=== PATIENT | male | born 1955 | race Caucasian/White ===

== ENCOUNTER 2017-10-30 23:28 | Inpatient (IN) | payer MEDICARE, MEDICAID ==
[~2017-10-30] VITALS: Ht 182.9 cm; Wt 78.0 kg
[~2017-10-30 23:28] MED LIST: ASPIR 8181 MG PO; ASPIRIN325 PO; CARVEDILOL12.5 MG PO; CARVEDILOL25 MG PO; CILOSTAZOL 100100 M1 PO; COREG; CRESTOR40 MG PO; DEPAKOTE ER500 MG PO; DEPAKOTE500 MG; DEPAKOTE500 MG PO; DETROL LA4 MG PO; EFFEXOR XR; EFFEXOR XR150 MG; EFFEXOR XR150 MG PO; EFFEXOR XR75 MG PO; HYDROCODON-ACE1 EAC7 PO; IMDUR 60 MG TAB60 M1 PO; KAYEXALATE15 GM/601 PO; LISINOPRIL20 MG PO; NAPROSYN500 MG PO; NEURONTIN 300300 M1; NEURONTIN 300300 M1 PO; NIASPAN 500 MG500 M1; NITROGLYCERIN0.4 MG SUBLING; OLANZAPINE10 MG PO; OLANZAPINE5 MG PO; PARICALCITOL1 MCG PO; PLAVIX 75 MG TA75 MG PO; PRILOSEC 20 MG20 MG PO; PROTONIX40 M2; ULTRAM 50MG TAB50 MG PO; ZANTAC 150MG T150 M1 PO; ZEMPLAR2 MCG PO; ZYPREXA 10 MG T10 M1 PO; ZYPREXA 10 MG T10 MG PO; ZYPREXA5 MG PO; ZYPREXA7.5 MG; ZYPREXA7.5 MG PO
[2017-10-30 23:29] VITALS: BP 130/74
[2017-10-31] VITALS (26 sets, daily range): BP systolic 115–178; BP diastolic 65–106
[2017-10-31 00:06] LABS: ABSOLUTE EOSINOPHILS 0.6 thou/uL (0.0-0.7); ABSOLUTE LYMPHOCYTES 2.5 thou/uL (0.8-5.3); ABSOLUTE MONOCYTES 0.9 thou/uL (0.0-1.2); ABSOLUTE NEUTROPHILS 3.2 thou/uL (1.6-8.1); BASOPHILS 0.5 %; EOSINOPHILS 7.8 %; HEMATOCRIT 37.4 % (42.0-52.0); HEMOGLOBIN 12.4 gm/dL (14.0-18.0); LYMPHOCYTES 34.7 %; MCH 30.9 pg (26.0-34.0); MCHC 33.2 g/dL (28.0-37.0); MONOCYTES 12.8 %; MPV 7.2 fl. (7.2-11.1); NUCLEATED RBCS 0 /100WBC; PLATELET COUNT* 206 thou/uL (150-400); POLYS 44.2 %; RBC 4.02 mil/uL (4.50-6.00); RDW-CV 15.9 % (10.5-14.5); WBC 7.3 thou/uL (4.0-11.0)
[2017-10-31 00:10] LABS: ANION GAP 5 mmol/L (7-16); BUN 24 mg/dL (7-18); CALCIUM 8.5 mg/dL (8.5-10.1); CHLORIDE 103 mmol/L (98-107); CO2 32 mmol/L (21-32); CREATININE 1.5 mg/dL (0.6-1.3); GLUCOSE 91 mg/dL (70-99); SODIUM 140 mmol/L (136-145)
[2017-10-31 00:12] LABS: INR 1.1; PROTIME 10.7 Seconds (9.20-11.50)
[2017-10-31 00:21] LABS: ALKALINE PHOSPHATASE 56 U/L (46-116); NT-PRO BRAIN NAT PEPTIDE 228 pg/mL (<300); SGOT 14 U/L (15-37); SGPT 22 U/L (30-65); TOTAL BILIRUBIN 0.2 mg/dL (<0.1-1.0); TROPONIN-I LEVEL <0.06 ng/mL (<0.06)
[2017-10-31 04:55] LABS: HEMATOCRIT 39.6 % (42.0-52.0); HEMOGLOBIN 13.1 gm/dL (14.0-18.0); MCH 30.7 pg (26.0-34.0); MCHC 33.1 g/dL (28.0-37.0); MCV 92.8 fL (80.0-100.0); MPV 7.3 fl. (7.2-11.1); RBC 4.27 mil/uL (4.50-6.00); RDW-CV 15.9 % (10.5-14.5); WBC 7.7 thou/uL (4.0-11.0)
[2017-10-31 05:31] LABS: TROPONIN-I LEVEL <0.06 ng/mL (<0.06)
[2017-10-31 05:48] LABS: CHOLESTEROL 152 mg/dL (<200); HDL CHOLESTEROL 38 mg/dL (>40); LDL CHOLESTEROL 79 mg/dL (<100); TRIGLYCERIDE 178 mg/dL (<150); VLDL 36 mg/dL (<40)
[2017-10-31 05:52] LABS: SERUM ASSESSMENT Clear
--- NOTE | 2017-10-31 09:19 | CARD ---
[address] [address] CARDIAC CATH REPORT Name: JINNY BUTLER Monty Room: [address] IN .R.#: [id number] Admission: 10/31/17 Attend Phys: Thiago Hendrickson MD, F Discharge: Date of : 55 Report #: [id number] THIS REPORT FOR: //name// APPROVED REPORT Patient Details Patient Status: ED Room #: The patient is a 62 year-old male Event Personnel Thiago Hendrickson Swing Ride Operator, Gayle Mukherjee Monitor, Gayle Mukherjee Monitor, David Chau (R) Scrub Procedures Performed Art Access - R radial artery , Left Heart Catheterization, Selective Right and Left Coronary Angiography, PTCA with Stenting Indication Unstable angina Risk Factors Arterial HypertensionDysplipidemia , Peripheral Vascular Disease Previous Procedures/Diagnoses Previous PCI Admission/Lab Medications/Medications given during procedure Heparin Unfract. Procedure Narrative The patient was brought emergently to the Cardiac Catheterization Laboratory and was prepped and draped in a sterile manner. The right femoral was infiltrated with 1% Lidocaine subcutaneous anesthesia. A Slender Glidesheath sheath was inserted into the right radial artery. Coronary angiography was performed using coronary diagnostic catheters. The right coronary system was accessed and visualized with a Diagnostic JR 4 6FR catheter. The left coronary system was accessed and visualized with a Diagnostic JL 4 6FR catheter. Left ventricular/Aortic Valve gradient assessed via catheter pullback. The patient tolerated the procedure well and there were no complications associated with the procedure. There was no hematoma. Cath attempted from the right femoral artery. A 6 central african sheath was placed percutaneously, but a wire could not be advanced. Arteriogram [address] [address] CARDIAC CATH REPORT Name: BUTLERJINNY R Room: [address] IN [facility]#: [id number] Admission: 10/31/17 Attend Phys: Thiago Hendrickson MD, F Discharge: Date of : 55 Report #: [id number] revealed total occlusion of the right iliac artery. Sheath was sutured in place. Attempted from the left femoral artery. Arterial blood was obtained, but unable to place sheath over wire. Sheath removed and hemostasis achieved by direct pressure. Procedure perform from the right radial artery after placing a 6 central african sheath percutaneously. Intraoperative Conscious Sedation Sedation start time: 12:50 Case end Time: 01:49 Fentanyl 50 mcg Versed 2 mg At the end of the procedure, the sheath in the right femoral artery was sutured in place. Fluoro Time: 7.9 minutes Dose: DAP 92524 cGycm2 986.95 mGy Contrast Type and Amount: Visipaque 200 ml Coronary Angiography The patient's coronary anatomy is left dominant. [place] Artery Percent Stenosis Left Main: 0 % Prox LAD: 0 % Mid/Distal LAD: 0 % Circumflex: 0 % RCA: 99 % Ramus: 80 %Stent in the ostium of the ramus had a 80% long stenosis. Stent in mid circumflex had no significant restenosis. Small, nondominant RCA had a mid 99% stenosis. Left Ventriculography Left Ventriculography was not performed. Hemodynamics The aortic pressure is 129/71 mmHg with a mean of mmHg. The left ventricular end diastolic pressure is 20 mmHg. There was no gradient across the aortic valve upon pullback. Pullback from the left ventricle to the aorta revealed no gradient across the aortic valve. PCI Technique Lesion Anticoagulation was achieved with Heparin. patient had been on plavix and asa chronically Percutaneous coronary intervention was performed on the proximal ramus. The lesion stenosis prior to intervention was 80% with SHARAN 3 flow. A 6FR XB 3.5 100CM Guide Catheter was used to engage the LCA ostium. A IG: BMW 190cm Interventional Guidewire [place] [address] CARDIAC CATH REPORT Name: JINNY BUTLER Room: [address] IN [facility]#: [id number] Admission: 10/31/17 Attend Phys: Thiago Hendrickson MD, F Discharge: Date of : 55 Report #: [id number] BALLOON DILATION A Balloon catheter Trek RX 2.5 X 12 was inserted and inflated up to 10.00atm for 32seconds. Repeat angiography revealed the following post-dilatation results: 50% stenosis. STENT DEPLOYMENT A drug-eluting stent Resolute RX 2.5X22 was inserted and inflated up to 10.00atm for 32seconds. Repeat angiography revealed the following post-stent deployment results: 0% stenosis. Additional Inflation: 12.00atm for 12seconds. Final angiography reveals 0 % stenosis with SHARAN 3 flow. Conclusion 1. 80% restenosis of the stent in the ostium of the ramus branch 2. no restenosis of the stent in the circumflex artery 3. 99% stenosis of a small nondominant RCA 4. Successful repeat stenting of the ramus artery 5. PAD that included a chronic occlusion of the right common iliac artery Recommendations Smoking Cessation Cardiac Rehabilitation Referral Aggressive Medical Therapy <ELECTRONICALLY SIGNED> By: Thiago Hendrickson MD, FACC 10/31/17917 7 7Daamie Hendrickson MD, FACC /INF
--- NOTE | 2017-10-31 09:48 | H ---
[place] [address] HISTORY AND PHYSICAL Name: JINNY BUTLER Monty Room: [address] IN M.R.#: [id number] Admission: 10/31/17 Attend Phys: Thiago Hendrickson MD, F Discharge: Date of : 55 Report #: [id number] THIS REPORT FOR: //name// CC: Taylor Sheth . DATE OF SERVICE: 10/31/2017 PRIMARY CARE PHYSICIAN: Francesco Lew. HISTORY OF PRESENT ILLNESS: The patient is a 62-year-old single white male who was last seen in the hospital today after he complained of chest pain. The patient had coronary stents placed at [facility] in [place], [place] in 2005. The patient's last stent was a couple of years ago. He was doing well until this evening, he was at home, felt a pressure in his chest, felt short of breath. He took a nitroglycerin did seem to help. He called an ambulance. He was brought here to [facility]. he had persistent pain. I was asked to see him for further evaluation and treatment. He notes exertional dyspnea, but no palpitations, syncope. He has had no recent fever. He does have a chronic cough. PAST MEDICAL HISTORY: Significant for shoulder surgery, bilateral knee surgery, hypertension, hyperlipidemia, manic depressive illness. MEDICATIONS: Include aspirin, Plavix, carvedilol, Depakote, Neurontin, Imdur, Zyprexa, Prozac, Crestor, and Effexor. ALLERGIES: He has an INTOLERANCE TO SEROQUEL. FAMILY HISTORY: His father had coronary artery bypass surgery. SOCIAL HISTORY: Single, been twice, lives in [place], [place] not working at this time is on disability. Smokes 3 packs of cigarettes a day. No alcohol abuse. REVIEW OF SYSTEMS: He has had no history of stroke, peptic ulcer disease, liver disease, kidney disease. He does have chronic renal insufficiency. No chronic skin condition. PHYSICAL EXAMINATION: GENERAL: Revealed a middle-aged male, appeared in mild distress. VITAL SIGNS: Blood pressure 130/70, pulse is 70. HEENT: Mucous members moist. NECK: Veins do not appear distended. No carotid bruits. CHEST: [place] [address] HISTORY AND PHYSICAL Name: JINNY BUTLER Room: [address]#: [id number] Admission: 10/31/17 Attend Phys: Thiago Hendrickson MD, F Discharge: Date of : 55 Report #: [id number] CARDIOVASCULAR: Regular rate and rhythm. ABDOMEN: Soft. EXTREMITIES: Had no edema. Dorsalis pedis pulse cannot be palpated. SKIN: Cool and dry. DIAGNOSTIC DATA: His ECG tonight showed sinus rhythm with a minimal ST elevation in lead V3. LABORATORY DATA: Sodium was 140, BUN 24, creatinine 1.5, glucose 91. His liver function studies were normal. Troponin 0.06. His white blood cell count is 7.3, hemoglobin 12.4. IMPRESSION AND RECOMMENDATIONS: 1. Unstable angina. Recommend cardiac catheterization. 2. Chronic kidney disease. 3. Hypertension. The patient is on a beta willie. 4. Hyperlipidemia. The patient is on a statin drug. 5. Manic depressive illness. The patient is on multiple medications. 6. Tobacco abuse. 7. Chronic obstructive pulmonary disease. <ELECTRONICALLY SIGNED> By: Thiago Hendrickson MD, FACC 10/31/17 0948 0212 0229Thiago Hendrickson MD, FACC /nt
--- NOTE | 2017-10-31 10:07 | EKG ---
[place] [address] ELECTROCARDIOGRAM REPORT Name: JINNY BUTLER Room: [address] ADM IN .R.#: [id number] Admission: 10/31/17 Attend Phys: Thiago Hendrickson MD, F Discharge: Date of : 55 Report #: [id number] THIS REPORT FOR: //name// [facility] ED Test Date: 2017-10-30 Test Time: 23:31:16 Pat Name: JINNY BUTLER Department: Room: Gender: M Coordinator Of Rehabilitation Services: KANDI Cabrera : 1955 Requested By: ALEK Order Number: [id number] Warren MD: Thiago Hendrickson Measurements Intervals [place] Rate: 77 P: 77 TX: 174 QRS: 69 QRSD: 98 T: 68 QT: 402 QTc: 455 Interpretive Statements Sinus rhythm st elevation noted, consider anterior ischemia Left atrial enlargement RSR' in V1 or V2, probably normal variant Compared to ECG 01/14/2017 10:21:48 st elevation noted Electronically Signed On 10-31-2017 10:07:30 BULLET SLUG CASTING MACHINE OPERATOR by Thiago Hendrickson [email or web address] <ELECTRONICALLY SIGNED> By: Thiago Hendrickson MD, FACC 10/31/17 1007 [facility] Thiago Hendrickson MD, [facility] /EPI
--- NOTE | 2017-10-31 10:09 | EKG ---
[place] [address] ELECTROCARDIOGRAM REPORT Name: MARIFER BUTLERXIN Millan Room: [address] ADM IN M.R.#: [id number] Admission: 10/31/17 Attend Phys: Thiago Hendrickson MD, F Discharge: Date of : 55 Report #: [id number] THIS REPORT FOR: //name// [facility] Test Date: 2017-10-31 Test Time: 07:49:06 Pat Name: JINNY BUTLER Department: Room: [address] Gender: M [employer] Production Team Member: : 1955 Requested By: Thiago Hendrickson Order Number: [id number] Warren MD: Thiago Hendrickson Measurements Intervals [place] Rate: 80 P: 62 RI: 181 QRS: 47 QRSD: 94 T: 59 QT: 392 QTc: 453 Interpretive Statements Sinus rhythm Abnormal R-wave progression, early transition Electronically Signed On 10-31-2017 10:09:45 SPECIAL EDUCATION PARA PROFESSIONAL by Thiago Hendrickson [email or web address] <ELECTRONICALLY SIGNED> By: Thiago Hendrickson MD, [facility] 10/31/17 1009 0749 0749 Thiago Hendrickson MD, FACC /EPI
--- NOTE | 2017-10-31 10:10 | EKG ---
[place] [address] ELECTROCARDIOGRAM REPORT Name: MARIFER BUTLERXIN Millan Room: [address] ADM IN M.R.#: [id number] Admission: 10/31/17 Attend Phys: Thiago Hendrickson MD, F Discharge: Date of : 55 Report #: [id number] THIS REPORT FOR: //name// [facility] Test Date: 2017-10-31 Test Time: 02:46:56 Pat Name: JINNY BUTLER Department: Room: [address] Gender: M Tool And Die Maker Apprentice: SHILA STARR : 1955 Requested By: Thiago Hendrickson Order Number: [id number] Warren MD: Thiago Hendrickson Measurements Intervals [place] Rate: 79 P: 69 [place]: 198 QRS: 67 QRSD: 85 T: 70 QT: 401 QTc: 460 Interpretive Statements Sinus rhythm Abnormal R-wave progression, early transition Electronically Signed On 10-31-2017 10:10:51 GRID OPERATOR by Thiago Hendrickson [email or web address] <ELECTRONICALLY SIGNED> By: Thiago Hendrickson MD, [facility] 10/31/17 1010 0246 0246 Thiago Hendrickson MD, FACC /EPI
--- NOTE | 2017-10-31 11:46 | 2DMMODE ---
[place] [address] 2 D/M-MODE ECHOCARDIOGRAM Name: BUTLERJINNY R Room: [address] IN [facility]#: [id number] Admission: 10/31/17 Attend Phys: Thiago Hendrickson MD Discharge: Date of : 55 Date of Service: 10/31/17 1146 Report #: [id number] THIS REPORT FOR: //name// APPROVED REPORT Study performed: 10/31/2017 10:49:00 EXAM: Comprehensive 2D, Doppler, and color-flow Echocardiogram Patient Location: In-Patient Room #: [facility] BSA: 2.04 HR: 83 bpm BP: 178/106 mmHg Rhythm: NSR Other Information Study Quality: Fair Indications CAD 2D Dimensions IVSd: 13.02 (7-11mm) LVOT Diam: 20.13 (18-24mm) LVDd: 44.08 mm PWd: 11.42 (7-11mm) Ascending Ao: 32.27 (22-36mm) LVDs: 33.34 (25-40mm) Aortic Root: 31.10 mm Volumes Left Atrial Volume (Systole) LA ESV Index: 21.40 mL/m2 Aortic Valve AoV Peak Heraclio.: 0.91 m/s AO Peak Gr.: 3.30 mmHg LVOT Max P.18 mmHg AO Mean Gr.: 1.86 mmHg LVOT Mean P.37 mmHg LVOT Max V: 0.89 m/s AO V2 VTI: 17.93 cm LVOT Mean V: 0.53 m/s FARIBA (VTI): 2.94 cm2 LVOT V1 VTI: 16.56 cm Mitral Valve E/A Ratio: 0.68 MV Decel. Time: 211.34 ms MV E Max Heraclio.: 0.58 m/[place] [address] 2 D/M-MODE ECHOCARDIOGRAM Name: JINNY BUTLER Room: [address] IN ..#: [id number] Admission: 10/31/17 Attend Phys: Thiago Hendrickson MD Discharge: Date of : 55 Date of Service: 10/31/17 1146 Report #: [id number] MV PHT: 61.29 ms MVA (PHT): 3.59 cm2 TDI E/Lateral E': 4.83 E/Medial E': 6.44 Medial E' Heraclio.: 0.09 m/s Lateral E' Heraclio.: 0.12 m/s Pulmonary Valve PV Peak Heraclio.: 0.89 m/s PV Peak Gr.: 3.16 mmHg Left Ventricle The left ventricle is normal size. There is normal LV segmental wall motion. There is normal left ventricular wall thickness. Left ventricular systolic function is normal. The left ventricular ejection fraction is within the normal range. LVEF is 55-60%. Grade I - abnormal relaxation pattern. Right Ventricle The right ventricle is normal size. The right ventricular systolic function is normal. Atria The left atrium size is normal. The right atrium size is normal. Aortic Valve The aortic valve is normal in structure. No aortic regurgitation is present. There is no aortic valvular stenosis. Mitral Valve The mitral valve is normal in structure. Trace mitral regurgitation. No evidence of mitral valve stenosis. Tricuspid Valve The tricuspid valve is normal in structure. Unable to assess PA pressure. Trace tricuspid regurgitation. Pulmonic Valve Pulmonic valve is not well visualized. There is no pulmonic valvular regurgitation. Great Vessels The aortic root is normal in size. IVC is normal in size and collapses with >50% [place] [address] 2 D/M-MODE ECHOCARDIOGRAM Name: JINNY BUTLER Room: [address] IN [facility]#: [id number] Admission: 10/31/17 Attend Phys: Thiago Hendrickson MD Discharge: Date of : 55 Date of Service: 10/31/17 1146 Report #: [id number] Pericardium There is no pericardial effusion. <Conclusion> Left ventricular systolic function is normal. The left ventricular ejection fraction is within the normal range. <ELECTRONICALLY SIGNED> By: Thiago Hendrickson MD, [facility] 10/31/17 1146 1146 1146 Thiago Hendrickson MD, [facility] /INF
[2017-11-01 03:33] VITALS: BP 160/83
[2017-11-01 07:30] VITALS: BP 131/74
[2017-11-01 10:15] VITALS: BP 178/106
[2017-11-01 12:02] VITALS: BP 125/60
--- NOTE | 2017-11-01 13:34 | EKG ---
[place] [address] ELECTROCARDIOGRAM REPORT Name: JINNY BUTLER Room: [address] ADM IN .R.#: [id number] Admission: 10/31/17 Attend Phys: Thiago Hendrickson MD, F Discharge: Date of : 55 Report #: [id number] THIS REPORT FOR: //name// [facility] Test Date: 2017-11-01 Test Time: 08:27:34 Pat Name: JINNY BUTLER Department: Room: [facility] Gender: M Services Coordinator: : 1955 Requested By: Thiago Hendrickson Order Number: [id number] Warren MD: Thiago Hendrickson Measurements Intervals [place] Rate: 95 P: 75 MN: 161 QRS: 62 QRSD: 90 T: 67 QT: 352 QTc: 443 Interpretive Statements Sinus rhythm Abnormal R-wave progression, early transition Compared to ECG 10/31/2017 07:49:06 No significant changes Electronically Signed On 11-01-2017 13:34:13 HOSPICE REGISTERED NURSE by Thiago Hendrickson [email or web address] <ELECTRONICALLY SIGNED> By: Thiago Hendrickson MD, [facility] 11/01/17 1334 6 6 Thiago Hendrickson MD, [facility] /EPI
--- NOTE | 2017-11-02 07:53 | D ---
[address] [address] DISCHARGE SUMMARY Name: JINNY BUTLER Monty Room: [address] IN .R.#: [id number] Admission: 10/31/17 Attend Phys: Thiago Hendrickson MD, F Discharge: 11/01/17 Date of : 55 Report #: [id number] THIS REPORT FOR: //name// CC: Taylor Abreu DATE OF SERVICE: 11/01/2017 DISCHARGE DIAGNOSES: 1. Unstable angina. 2. Coronary artery disease. 3. Hypertension. 4. Hyperlipidemia. 5. Tobacco abuse. 6. Manic depressive illness. CONSULTANTS: None. PROCEDURES: Left heart catheterization with placement of a single drug-eluting stent in the ramus intermediate branch of the left coronary artery. HISTORY OF PRESENT ILLNESS: The patient is a 62-year-old single white male who came to the emergency room complaining of chest pain. The patient had previous stents placed in his circumflex and ramus intermediate branch at [facility] in 2005. He has actually had repeat heart catheterization at [facility] since that time showing no significant restenosis. He was doing well until the evening of admission, felt a pressure in his chest, became short of breath. He took a nitroglycerin that did not seem to help. He called an ambulance. He was brought to [place]. On arrival here, he had persisted pain. I was asked to see him on an emergent basis. He does complain of exertional dyspnea, but no palpitations, syncope, recent fever, or bleeding. He does have a chronic cough. PAST MEDICAL HISTORY: Significant for shoulder surgery, bilateral knee surgery, hypertension, hyperlipidemia, and has a history of manic depressive illness. MEDICATIONS: Consist of aspirin, Plavix, carvedilol, Depakote, Neurontin, Imdur, Zyprexa, Prozac, Crestor, and Effexor. ALLERGIES: He had a previous intolerance to SEROQUEL. SOCIAL HISTORY: He is single, lives in [place], [place], he is not working at this time because of disability. Smokes 3 packs of cigarettes a day. PHYSICAL EXAMINATION: [place] [address] DISCHARGE SUMMARY Name: JINNY BUTLER Room: [address]#: [id number] Admission: 10/31/17 Attend Phys: Thiaog Hendrickson MD, F Discharge: 11/01/17 Date of : 55 Report #: [id number] VITAL SIGNS: Blood pressure is 130/70, pulse is 70. CHEST: Clear to auscultation. HEART: Regular rate and rhythm. ABDOMEN: Soft and nontender. EXTREMITIES: Had no edema. SKIN: Warm and dry. ECG: Initial ECG showed a normal sinus rhythm with no significant ST segment change. However, followup ECG did show what appeared to be at least a mm of ST segment elevation in lead V3. LABORATORY DATA: Sodium 140, creatinine 1.5, glucose 91. Liver function studies were normal. Troponin 0.06. White blood cell count 7.3, hemoglobin 12.4. HOSPITAL COURSE: The patient was felt to be having acute coronary syndrome, although I do not believe it was a STEMI. I recommended urgent cardiac catheterization. He was taken to the laborer ammunition assembly at approximately 1:00 a.m. Results showed no significant stenosis in the LAD or left main artery. However, there was a large ramus intermediate branch that had a proximal stent. There appeared to be 80% concentric restenosis in the proximal portion of the stent in the ramus artery. The stent in the mid circumflex had no significant restenosis. There was a small nondominant right coronary artery that had a subtotal 99% stenosis. No ventriculogram was performed. Left ventricular end diastolic pressure was 20. There was no gradient across the aortic valve. He had been on aspirin and Plavix. I therefore anticoagulated the patient with heparin and I performed an angioplasty of the stent in the ramus branch. I then placed a new drug-eluting stent in the proximal ramus intermediate branch. I used a [employer] Resolute stent. He tolerated the procedure well. Initially, the procedure was attempted from the right femoral artery. However, I could not pass the wire. An arteriogram of the right femoral artery showed the right common iliac appeared to be chronically occluded. I then attempted it from the left femoral artery. Although pulse was felt and obtained arterial blood, I could not pass the wire through the iliac artery. This was then abandoned. The procedure was then performed from the right radial artery without complications. The patient had no further chest pain and was transferred to the ICU. A Vasc band was placed over the right radial artery. The sheath was removed from the right femoral artery and hemostasis achieved by prolonged pressure. The patient remained stable and developed no significant hematoma. He was transferred out of the ICU and began to ambulate. He has had no further chest pain, arrhythmias, or heart failure. Followup electrocardiogram showed a sinus rhythm with no significant ST or T-wave change. Additional workup during his hospitalization included a chest x-ray that showed normal heart size and clear lung newsome. A small granuloma was noted in the left lung. Additional lab work included a fasting blood glucose of 91. His troponin 0.06. Cholesterol 152, triglyceride 178, HDL 38, LDL 79. Followup [address] [place] [address] DISCHARGE SUMMARY Name: JINNY BUTLER Monty Room: [address] IN [facility]#: [id number] Admission: 10/31/17 Attend Phys: Thiago Hendrickson MD, F Discharge: 11/01/17 Date of : 55 Report #: [id number] hemoglobin was 13.1. Results of the hospitalization were discussed with the patient. He is felt to have had a restenosis of stent in the ramus branch. I then placed a new drug-eluting stent. There was no myocardial necrosis. He did undergo an echocardiogram to assess left ventricular function that showed a normal ejection fraction, no significant valvular heart disease. Prior to discharge, the patient was seen by cardiac rehabilitation. He was given a nicotine patch during his hospitalization because of his excessive smoking history. At time of discharge, he had no further complaints and had a blood pressure of 120/60, pulse was 80 and he was afebrile. He was discharged to continue his home medications that consisted of aspirin 81 mg a day, carvedilol 25 mg twice a day, Pletal 100 mg twice day because of his history of PAD. If the patient develops significant claudication, I would consider arteriogram of both legs to consider revascularization. He was to continue Plavix 75 mg a day indefinitely, Depakote at bedtime because of his manic depressive illness, Neurontin 300 mg 3 times a day, Imdur 60 mg a day, Zyprexa 15 mg at bedtime. The patient was planning to continue to see his psychiatrist for his manic depressive illness. He was to continue Prilosec 20 mg a day, ranitidine 150 mg at bedtime, Crestor 40 mg a day, Detrol-LA because of bladder spasms 4 mg at bedtime, Effexor XR 225 mg at bedtime. He does have nitroglycerin to take as needed for chest pain. At time of discharge, the patient had no further complaints. He was discharged to follow up with his regular industrial energy engineer, Dr. Avila at [facility] in 2 weeks. I recommended he continue to see his primary care physician, Dr. Plaza for routine medical care. He is scheduled to see his psychiatrist on a regular basis as well. The patient declined the invitation to participate in cardiac rehabilitation because he does not have a vehicle. The patient does not work at this time. I strongly recommended he attempts to stop smoking because of his vascular disease. <ELECTRONICALLY SIGNED> By: Thiago Hendrickson MD, [facility] 11/02/17 0753 1250 [id number] Hendrickson MD, FACC /nt
== END 2017-11-01 13:52 | disposition home or self-care (01) | DRG 246 ==
LOC: M.CL 23:28 → M.ERS 23:28 → M.CL 10-31 00:30 → M.ICU 10-31 02:21 → M.TBA-ER 10-31 02:21 → M.2W 10-31 02:21 → M.ICU 10-31 02:30 → M.2W 10-31 10:51
PROVIDERS: Emergency Medicine; ADMIT Internal Medicine Cardiovascular Disease
PROC: B2151ZZ Fluoroscopy of Left Heart using Low Osmolar Contrast (ICD-10-PCS; principal; 2017-10-31)
PROC: B2111ZZ Fluoroscopy of Multiple Coronary Arteries using Low Osmolar Contrast (ICD-10-PCS; principal; 2017-10-31)
PROC: 027034Z Dilation of Coronary Artery, One Artery with Drug-eluting Intraluminal Device, Percutaneous Approach (ICD-10-PCS; principal; 2017-10-31)
PROC: 4A023N7 Measurement of Cardiac Sampling and Pressure, Left Heart, Percutaneous Approach (ICD-10-PCS; principal; 2017-10-31)
DX: T82.855A Stenosis of coronary artery stent, initial encounter (principal); I50.31 Acute diastolic (congestive) heart failure; I25.110 Atherosclerotic heart disease of native coronary artery with unstable angina pectoris; I13.0 Hypertensive heart and chronic kidney disease with heart failure and stage 1 through stage 4 chronic kidney disease, or unspecified chronic kidney disease; N18.3 Chronic kidney disease, stage 3 (moderate); F31.9 Bipolar disorder, unspecified; E78.00 Pure hypercholesterolemia, unspecified; K21.9 Gastro-esophageal reflux disease without esophagitis; F17.210 Nicotine dependence, cigarettes, uncomplicated; Y84.0 Cardiac catheterization as the cause of abnormal reaction of the patient, or of later complication, without mention of misadventure at the time of the procedure; E78.5 Hyperlipidemia, unspecified; J44.9 Chronic obstructive pulmonary disease, unspecified; Z95.5 Presence of coronary angioplasty implant and graft; Z79.899 Other long term (current) drug therapy; Z79.82 Long term (current) use of aspirin; Z88.8 Allergy status to other drugs, medicaments and biological substances; Z82.49 Family history of ischemic heart disease and other diseases of the circulatory system; Y92.89 Other specified places as the place of occurrence of the external cause; Z79.02 Long term (current) use of antithrombotics/antiplatelets; Z71.6 Tobacco abuse counseling

== ENCOUNTER 2018-05-15 23:05 | Inpatient (IN) | payer MEDICARE, MEDICAID ==
[~2018-05-15] VITALS: Ht 182.9 cm; Wt 82.4 kg
[2018-05-15 23:06] VITALS: BP 105/57
[2018-05-15 23:29] LABS: ABSOLUTE EOSINOPHILS 0.4 thou/uL (0.0-0.7); ABSOLUTE LYMPHOCYTES 1.7 thou/uL (0.8-5.3); ABSOLUTE MONOCYTES 0.9 thou/uL (0.0-1.2); ABSOLUTE NEUTROPHILS 3.6 thou/uL (1.6-8.1); BASOPHILS 0.7 %; EOSINOPHILS 6.2 %; HEMATOCRIT 37.2 % (42.0-52.0); HEMOGLOBIN 12.7 gm/dL (14.0-18.0); LYMPHOCYTES 25.9 %; MCH 31.4 pg (26.0-34.0); MCHC 34.1 g/dL (28.0-37.0); MCV 92.2 fL (80.0-100.0); MONOCYTES 13.2 %; MPV 7.2 fl. (7.2-11.1); NUCLEATED RBCS 0 /100WBC; PLATELET COUNT* 266 thou/uL (150-400); RBC 4.03 mil/uL (4.50-6.00); RDW-CV 15.7 % (10.5-14.5); WBC 6.6 thou/uL (4.0-11.0)
[2018-05-15 23:43] LABS: INR 1.1; PROTIME 10.3 Seconds (9.20-11.50)
[2018-05-15 23:53] LABS: ANION GAP 7 mmol/L (7-16); BUN 42 mg/dL (7-18); CALCIUM 9.7 mg/dL (8.5-10.1); CHLORIDE 99 mmol/L (98-107); CO2 24 mmol/L (21-32); CREATININE 2.1 mg/dL (0.6-1.3); GLUCOSE 107 mg/dL (70-99); POTASSIUM 5.1 mmol/L (3.5-5.1); SODIUM 130 mmol/L (136-145)
[2018-05-15 23:58] LABS: ALKALINE PHOSPHATASE 62 U/L (46-116); NT-PRO BRAIN NAT PEPTIDE 155 pg/mL (<300); SGOT 15 U/L (15-37); SGPT 14 U/L (30-65); TOTAL BILIRUBIN 0.3 mg/dL (<0.1-1.0); TOTAL PROTEIN 6.3 g/dL (6.4-8.2); TROPONIN-I LEVEL <0.06 ng/mL (<0.06)
[2018-05-16] VITALS (11 sets, daily range): BP systolic 79–157; BP diastolic 40–86
[2018-05-16 00:14] LABS: URINE BILIRUBIN NEGATIVE (Negative); URINE BLOOD NEGATIVE (Negative); URINE CLARITY CLEAR; URINE COLOR YELLOW; URINE GLUCOSE-RANDOM NEGATIVE (Negative); URINE KETONES NEGATIVE (Negative); URINE LEUKOCYTES-REFLEX NEGATIVE (Negative); URINE NITRITE-REFLEX NEGATIVE (Negative); URINE PROTEIN TRACE (Negative); URINE SPECIFIC GRAVITY <= 1.005 (1.005-1.030); URINE UROBILINOGEN 0.2 E.U./dl (0.2-1.0)
--- NOTE | 2018-05-16 01:05 | NUR ---
REPORT GIVEN TO ICU
[2018-05-16 01:58] LABS: HEMOGLOBIN 13.7 gm/dL (14.0-18.0)
[2018-05-16 02:47] LABS: HEMATOCRIT 41.2 % (42.0-52.0)
--- NOTE | 2018-05-16 04:02 | NUR ---
PT. ADMITTED TO ROOM 3 AT 0141, ALERT AND ORIENTED, HARD OF HEARING MALE. 63 YEARS OLD. C/O CHEST PAIN THAT BROUGHT HIM TO ED, AND WAS NOTED TO HAVE BLOODY STOOLS IN ED. TRANSFERRED TO ICU BED STAND BY ASSIST. ROOM AIR, 4 PACK/DAY SMOKER, PT. STATED "PROBABLY MORE IF YOU COUNT MY PIPE." SEE ADMISSION ASSESSMENT. WILL CONTINUE TO MONITOR.
[2018-05-16 06:33] LABS: HEMOGLOBIN 12.9 gm/dL (14.0-18.0)
[2018-05-16 08:49] LABS: CALCIUM 9.7 mg/dL (8.5-10.1); CREATININE 1.5 mg/dL (0.6-1.3); POTASSIUM 4.9 mmol/L (3.5-5.1)
--- NOTE | 2018-05-16 10:45 | NUR ---
PT DISCHARGED AMA. DR CHUNG NOTIFIED. PT REMOVED HIS OWN MONITORS AND IV'S. PT EDUCATED ABOUT POSSIBLE RETURN OF SYMPTOMS AND TO RETYRN TO THE ER IF NEEDED. PT VERBALIZED UNDERSTANDING. PT CALLED [facility] [facility] [facility] FOR TRANSPORTATION.
--- NOTE | 2018-05-16 11:21 | NUR ---
PT LEFT AMA BEFORE COULD BE ASSESSED BY CASE MGT.
--- NOTE | 2018-05-16 13:06 | EKG ---
[place] [address] ELECTROCARDIOGRAM REPORT Name: BUTLERJINNY R Room: [address] IN M.R.#: [id number] Admission: 05/16/18 Attend Phys: Rick Payan MD Discharge: 05/16/18 Date of : 55 Report #: [id number] THIS REPORT FOR: //name// [facility] ED Test Date: 2018-05-15 Test Time: 23:09:24 Pat Name: JINNY BUTLER Department: Room: Gender: Helix Coil Winder: LORETTA Cabrera : 1955 Requested By: Cassy Dodson Order Number: [id number] MD: Keny Luciano Measurements Intervals [place] Rate: 78 P: 109 ND: 187 QRS: 112 QRSD: 96 T: 100 QT: 394 QTc: 449 Interpretive Statements Right and left arm electrode reversal, interpretation assumes no reversal Sinus rhythm Probable left atrial enlargement Right axis deviation Borderline repolarization abnormality Baseline wander in lead(s) I,II,III,aVR,aVF,V1,V2,V3,V4,V5,V6 Compared to ECG 11/01/2017 08:27:34 Right-axis deviation now present Electronically Signed On 05-16-2018 13:06:16 CDT by Keny Luciano [email or web address] <ELECTRONICALLY SIGNED> By: Keny Luciano MD, [facility] 05/16/18 1306 08 08 Keny Luciano MD, [facility] /EPI
--- NOTE | 2018-05-30 08:41 | CON ---
[address] [address] CONSULTATION Name: BUTLERJINNY R Room: [address] IN M.R.#: [id number] Admission: 05/16/18 Attend Phys: Rick Payan MD Discharge: 05/16/18 Date of : 55 Report #: [id number] THIS REPORT FOR: //name// CC: Rick Payan FAM physician/PCP DATE OF SERVICE: 05/16/2018 CONSULTING PHYSICIAN: Rick Payan MD REASON FOR NEPHROLOGY CONSULTATION: Acute kidney injury on chronic kidney disease stage 3. REASON FOR ADMISSION: Weakness and hypotension. HISTORY OF PRESENT ILLNESS: This is a 63-year-old male with past medical history of chronic kidney disease stage 3 with baseline creatinine 1.4-1.5, history of coronary artery disease, hypertension, non-STEMI who came in with dizziness and low blood pressure and some chest pain yesterday. He went out momentarily to leave his dogs out and he just felt very weak in his legs and dizzy and then got dizzy and then he also had some chest discomfort. Hence, he was evaluated in the Emergency Room and he was found to have a blood pressure of 70/44. Due to the history of chest discomfort a CTA was done to rule out aortic dissection, which came out to be negative. He was started on IV fluids and his blood pressure has since then improved and he has made about 1.2 liters of urine overnight. When he came in, his creatinine was 2.1, but now it has come down to 1.5 this morning. The patient is just very sleepy this morning. He wakes up and he answers all questions though. He has no difficulty urinating. He does not take any NSAIDs. He does follow with [facility]. ALLERGIES: QUETIAPINE. REVIEW OF SYSTEMS: Chest discomfort and dizziness, and just weakness, which has since then improved. Other review of systems were done and they were negative. PAST MEDICAL AND SURGICAL HISTORY: Includes history of bipolar disorder, hypertension, dyslipidemia, left rotator cuff repair, and then he has had 6 cardiac stents, which were placed in 2005, and he has had a vein removed from the left testicle and gotten cataract surgery. FAMILY HISTORY: Which is reviewed and it was noncontributory. SOCIAL HISTORY: He is a current every day smoker, does not use recreational drugs and does not use alcohol. He states that he lives at home with family. HOME MEDICATIONS: Include cilostazol, rosuvastatin, clopidogrel, isosorbide, [place] [address] CONSULTATION Name: JINNY BUTLER Room: [address] IN ..#: [id number] Admission: 05/16/18 Attend Phys: Rick Payan MD Discharge: 05/16/18 Date of : 55 Report #: [id number] ranitidine, gabapentin, omeprazole, venlafaxine, Detrol, carvedilol, , olanzapine, divalproex, aspirin and nitroglycerin. PHYSICAL EXAMINATION: VITAL SIGNS: Blood pressure is now 124/57, respiratory rate was 17, pulse was 74, temperature was 36.6 and pulse ox was 97% and he is on no oxygen. GENERAL: He is drowsy, but is arousable and oriented x 3. HEAD, EYES, EARS, NOSE AND THROAT: Mucous membranes are moist. NECK: No JVD. CHEST: Bilateral coarse breath sounds, but no crackles or wheezing. CARDIOVASCULAR: S1, S2 normal. No murmurs or rubs. ABDOMEN: Soft, nondistended, nontender. Bowel sounds are present. EXTREMITIES: No lower extremity edema, symmetrical extremities. NEUROLOGICAL FUNCTION: Gross neurological function is intact. PSYCHIATRIC: Mood seems to be normal. LABORATORY DATA: From this morning, hemoglobin was 12.9. Sodium was 132 from 130 yesterday, creatinine was 1.5 from 2.1 yesterday, and bicarbonate was 19. Other labs are reviewed. IMAGING: Chest, abdomen, pelvic CTA and chest x-ray were reviewed. ASSESSMENT AND PLAN: 1. Acute kidney injury on chronic kidney disease stage 3 with baseline creatinine 1.4-1.5, which is likely due to dehydration: The patient likely got dehydrated because with IV fluids his creatinine has come down to 1.5 this morning. He has a baseline creatinine of 1.4-1.5. We will try to get his records from our clinic. He is making urine. Continue normal saline at 100 mL an hour. He did get IV contrast yesterday, so we will have to follow his creatinine 48 hours after contrast. 2. Mild hyponatremia: Sodium is better this morning with IV fluids. Decrease IV fluids to normal saline at 100 mL an hour. Sodium is 132 this morning. 3. Hypotension: Etiology could be because of dehydration and it is better now after IV fluids. 4. Stool for occult blood positive: GI has been consulted for possible gastrointestinal bleed, although his hemoglobin has been rock stable. 5. Multiple small cysts in bilateral kidneys: This is something that can be followed up as an outpatient. 6. Chest pain: This could have been because of low blood pressure and troponins so far have been negative. Thank you for this consultation. We will continue to follow along with you. <ELECTRONICALLY SIGNED> By: Tanesha Sutton MD 05/30/18 0841 1042 1451Amitolga lidia Sutton MD /nt
== END 2018-05-16 10:50 | disposition left against medical advice (07) | DRG 394 ==
LOC: M.ERS 23:05 → M.ICU 05-16 01:23 → M.TBA-ER 05-16 01:23 → M.ICU 05-16 01:31
PROVIDERS: Emergency Medicine; Internal Medicine; ADMIT Internal Medicine
DX: K64.8 Other hemorrhoids (principal); N17.9 Acute kidney failure, unspecified; E87.1 Hypo-osmolality and hyponatremia; I95.9 Hypotension, unspecified; F31.9 Bipolar disorder, unspecified; E78.00 Pure hypercholesterolemia, unspecified; K21.9 Gastro-esophageal reflux disease without esophagitis; E78.5 Hyperlipidemia, unspecified; F17.210 Nicotine dependence, cigarettes, uncomplicated; N18.3 Chronic kidney disease, stage 3 (moderate); Z53.21 Procedure and treatment not carried out due to patient leaving prior to being seen by health care provider; I12.9 Hypertensive chronic kidney disease with stage 1 through stage 4 chronic kidney disease, or unspecified chronic kidney disease; I25.10 Atherosclerotic heart disease of native coronary artery without angina pectoris; I73.9 Peripheral vascular disease, unspecified; E86.0 Dehydration; Z98.49 Cataract extraction status, unspecified eye; Z95.5 Presence of coronary angioplasty implant and graft; Z88.8 Allergy status to other drugs, medicaments and biological substances

== ENCOUNTER 2018-05-29 21:26 | Inpatient (IN) | payer MEDICARE, MEDICAID ==
[~2018-05-29] VITALS: Ht 182.9 cm; Wt 80.0 kg
[2018-05-29 21:27] VITALS: BP 97/61
[2018-05-29 21:54] LABS: ABSOLUTE EOSINOPHILS 0.3 thou/uL (0.0-0.7); ABSOLUTE LYMPHOCYTES 2.3 thou/uL (0.8-5.3); ABSOLUTE MONOCYTES 0.9 thou/uL (0.0-1.2); ABSOLUTE NEUTROPHILS 3.6 thou/uL (1.6-8.1); BASOPHILS 0.5 %; EOSINOPHILS 4.9 %; HEMATOCRIT 36.9 % (42.0-52.0); HEMOGLOBIN 12.4 gm/dL (14.0-18.0); LYMPHOCYTES 31.5 %; MCH 31.5 pg (26.0-34.0); MCHC 33.6 g/dL (28.0-37.0); MCV 93.7 fL (80.0-100.0); MONOCYTES 12.4 %; MPV 7.2 fl. (7.2-11.1); NUCLEATED RBCS 0 /100WBC; PLATELET COUNT* 210 thou/uL (150-400); POLYS 50.7 %; RBC 3.94 mil/uL (4.50-6.00); RDW-CV 15.7 % (10.5-14.5); WBC 7.2 thou/uL (4.0-11.0)
[2018-05-29 22:02] LABS: ANION GAP 12 mmol/L (7-16); BUN 45 mg/dL (7-18); CALCIUM 8.6 mg/dL (8.5-10.1); CHLORIDE 105 mmol/L (98-107); CO2 21 mmol/L (21-32); CREATININE 2.3 mg/dL (0.6-1.3); GLUCOSE 78 mg/dL (70-99); POTASSIUM 4.3 mmol/L (3.5-5.1); SODIUM 138 mmol/L (136-145)
[2018-05-29 22:07] LABS: INR 1.1; PROTIME 10.4 Seconds (9.20-11.50)
[2018-05-29 22:13] LABS: ALBUMIN 3.1 g/dL (3.4-5.0); ALKALINE PHOSPHATASE 57 U/L (46-116); NT-PRO BRAIN NAT PEPTIDE 72 pg/mL (<300); SGOT 14 U/L (15-37); SGPT 15 U/L (30-65); TOTAL BILIRUBIN 0.3 mg/dL (<0.1-1.0); TOTAL PROTEIN 6.4 g/dL (6.4-8.2); TROPONIN-I LEVEL <0.06 ng/mL (<0.06)
[2018-05-30] VITALS (7 sets, daily range): BP systolic 125–143; BP diastolic 68–82
[2018-05-30 04:09] LABS: URINE COLOR YELOW
[2018-05-30 04:10] LABS: URINE BILIRUBIN NEGATIVE (Negative); URINE BLOOD NEGATIVE (Negative); URINE CLARITY CLEAR; URINE GLUCOSE-RANDOM NEGATIVE (Negative); URINE KETONES NEGATIVE (Negative); URINE LEUKOCYTES-REFLEX NEGATIVE (Negative); URINE NITRITE-REFLEX NEGATIVE (Negative); URINE PROTEIN NEGATIVE (Negative); URINE SPECIFIC GRAVITY < 1.005 (1.005-1.030); URINE UROBILINOGEN 0.2 E.U./dl (0.2-1.0)
--- NOTE | 2018-05-30 04:47 | NUR ---
PT ADMITTED FROM ER TO ROOM 203. PT MOVED TO [facility] BED PER STAFF. RESP REG AND UNALBORED SKIN W/D. PT UNABLE TO STAY AWAKE T ANSWER QUESTIONS AT FIRST. TELEMETRY PACK APPLIED WITH ALARMS SET. PT WILL ANSWE RA QUESTION AND BE ASLEEP BEFORE BEING ABLE TO ASK NEXT QUESTION. VSS ANDNO ACUTE DISTRESS NOTED. WILL CONTINUE TO MONITOR. PT ORIENTED TO ROOM, CALL SYSTEM, BED CONTROLS AND TV CONTROLS. PT VERBALIZED GOOD UNDERSTANDING. O2 2 L BNC INTACT
[2018-05-30 09:53] LABS: CALCIUM 9.3 mg/dL (8.5-10.1); CREATININE 1.6 mg/dL (0.6-1.3); POTASSIUM 4.4 mmol/L (3.5-5.1)
--- NOTE | 2018-05-30 15:03 | 2DMMODE ---
[place] [address] 2 D/M-MODE ECHOCARDIOGRAM Name: JINNY BUTLER Room: [address] IN [facility]#: [id number] Admission: 05/29/18 Attend Phys: Marcelino Bunch, Discharge: Date of : 55 Date of Service: 05/30/18 1502 Report #: [id number] THIS REPORT FOR: //name// APPROVED REPORT Study performed: 05/30/2018 10:15:57 EXAM: Comprehensive 2D, Doppler, and color-flow Echocardiogram Patient Location: In-Patient [facility] Status: routine BSA: 2.04 HR: 77 bpm BP: 143/77 mmHg Rhythm: NSR Other Information Study Quality: Good Indications Arrhythmia Syncope 2D Dimensions LVEF(%): 58.71 (>50%) IVSd: 9.83 (7-11mm) LVOT Diam: 19.99 (18-24mm) LVDd: 43.48 mm PWd: 10.25 (7-11mm) Ascending Ao: 33.21 (22-36mm) LVDs: 30.07 (25-40mm) Aortic Root: 31.81 mm Gomez's LVEF: 58.71 % Volumes Left Atrial Volume (Systole) LA ESV Index: 15.80 mL/m2 Aortic Valve AoV Peak Heraclio.: 1.11 m/s AO Peak Gr.: 4.89 mmHg LVOT Max P.68 mmHg AO Mean Gr.: 2.49 mmHg LVOT Mean P.14 mmHg LVOT Max V: 0.82 m/s AO V2 VTI: 23.72 cm LVOT Mean V: 0.48 m/s FARIBA (VTI): 2.26 cm2 LVOT V1 VTI: 17.11 [place] [address] 2 D/M-MODE ECHOCARDIOGRAM Name: JINNY BUTLER Room: [address] IN .R.#: [id number] Admission: 05/29/18 Attend Phys: Marcelino Bunch, Discharge: Date of : 55 Date of Service: 05/30/18 1502 Report #: [id number] E/A Ratio: 0.77 MV Decel. Time: 248.63 ms MV E Max Heraclio.: 0.64 m/s MV PHT: 72.10 ms MVA (PHT): 3.05 cm2 TDI E/Lateral E': 6.40 E/Medial E': 5.82 Medial E' Heraclio.: 0.11 m/s Lateral E' Heraclio.: 0.10 m/s Pulmonary Valve PV Peak Heraclio.: 0.82 m/s PV Peak Gr.: 2.68 mmHg Left Ventricle The left ventricle is normal size. There is normal LV segmental wall motion. There is normal left ventricular wall thickness. Left ventricular systolic function is normal. The left ventricular ejection fraction is within the normal range. LVEF is 55-60%. Grade I - abnormal relaxation pattern. Right Ventricle The right ventricle is normal size. The right ventricular systolic function is normal. Atria The left atrium size is normal. The right atrium size is normal. Aortic Valve The aortic valve is normal in structure. No aortic regurgitation is present. There is no aortic valvular stenosis. Mitral Valve The mitral valve is normal in structure. Trace mitral regurgitation. No evidence of mitral valve stenosis. Tricuspid Valve The tricuspid valve is normal in structure. Trace tricuspid regurgitation. Unable to assess PA pressure. Pulmonic Valve The pulmonary valve is normal in structure. There is no pulmonic valvular regurgitation[place] [address] 2 D/M-MODE ECHOCARDIOGRAM Name: JINNY BUTLER Monty Room: [address] IN [facility]#: [id number] Admission: 05/29/18 Attend Phys: Marcelino Bunch, Discharge: Date of : 55 Date of Service: 05/30/18 1502 Report #: [id number] The aortic root is normal in size. IVC is normal in size and collapses with >50% inspiration Pericardium There is no pericardial effusion. <Conclusion> The left ventricle is normal size. There is normal left ventricular wall thickness. Left ventricular systolic function is normal. The left ventricular ejection fraction is within the normal range. Grade I - abnormal relaxation pattern. The right ventricle is normal size. The left atrium size is normal. The aortic valve is normal in structure. The mitral valve is normal in structure. Trace mitral regurgitation. The tricuspid valve is normal in structure. IVC is normal in size and collapses with >50% inspiration There is no pericardial effusion. There is normal LV segmental wall motion. LVEF is 55-60%. <ELECTRONICALLY SIGNED> By: Keny Luciano MD, FACC 05/30/18 1502 1502 150 Keny Luciano MD, FACC /INF
--- NOTE | 2018-05-30 15:19 | EKG ---
[place] [address] ELECTROCARDIOGRAM REPORT Name: JINNY BUTLER Room: [address] IN .R.#: [id number] Admission: 05/29/18 Attend Phys: Marcelino Bunch MD Discharge: Date of : 55 Report #: [id number] THIS REPORT FOR: //name// [facility] ED Test Date: 2018-05-29 Test Time: 21:35:08 Pat Name: JINNY BUTLER Department: Room: Gender: Career Services Director: [place] : 1955 Requested By: Evans Colbert Order Number: [id number] MD: Keny Luciano Measurements Intervals [place] Rate: 77 P: 68 [place]: 188 QRS: 39 QRSD: 101 T: 79 QT: 401 QTc: 454 Interpretive Statements Sinus rhythm Consider left atrial enlargement RSR' in V1 or V2, probably normal variant Compared to ECG 05/15/2018 23:09:24 RSR' in V1 or V2 now present Right-axis deviation no longer present Electronically Signed On 05-30-2018 15:19:46 CDT by Keny Luciano [email or web address] <ELECTRONICALLY SIGNED> By: Keny Luciano MD, [facility] 05/30/18 1519 2135 2135 Keny Luciano MD, [facility] /EPI
--- NOTE | 2018-05-30 15:30 | NUR ---
Pt was sound asleep when CM went to assess, will f/u later
--- NOTE | 2018-05-30 17:13 | NUR ---
ASSESSMENT COMPLETED REFER TO COMPUTER CHARTING. SEED TECHNICIAN TRACKING SR. PATIENT REPORTING NO PAIN, NAUSEA OR SHORTNESS OF BREATH. BED IN LOW AND LOCKED POSITION. CALL LIGHT WITHIN REACH. IV FLUIDS DISCONTINUED. PATIENT ON ROOM AIR. PATIENT DROWSEY THIS SHIFT.
[2018-05-31] VITALS: BP 139/69
[2018-05-31 04:00] VITALS: BP 123/69
--- NOTE | 2018-05-31 04:16 | NUR ---
PT AAOX4, PT MORE AWAKE THIS SHIFT THAN WHEN ADMITTED. PT STATED HE WAS JUST CATCHING UP ON HIS SLEEP, STATES NOT USUALLY THIS SLEEPY. TELEMETRY PACK INTACT WITH ALARMS SET. PT HAD A GOOD NIGHT WITH NO ACUTE CHANGES NOTED., VSS WILL CONTINUE TO MONITOR
[2018-05-31 04:21] LABS: HEMATOCRIT 38.3 % (42.0-52.0); HEMOGLOBIN 12.8 gm/dL (14.0-18.0); MCH 31.1 pg (26.0-34.0); MCHC 33.3 g/dL (28.0-37.0); MCV 93.6 fL (80.0-100.0); MPV 7.6 fl. (7.2-11.1); RBC 4.1 mil/uL (4.50-6.00); RDW-CV 15.8 % (10.5-14.5); WBC 6.2 thou/uL (4.0-11.0)
[2018-05-31 04:33] LABS: CREATININE 1.1 mg/dL (0.6-1.3); MAGNESIUM 1.5 mg/dL (1.8-2.4); POTASSIUM 4.2 mmol/L (3.5-5.1)
[2018-05-31 08:00] VITALS: BP 152/79
--- NOTE | 2018-05-31 09:48 | NUR ---
VSS, ASSUMED CARE OF PT THIS AM, ASSESSMENT PERFORMED AND CHARTED, AND CALL LIGHT IN REACH, FALL PRECAUTIONS IN PLACE, PT IS A&O4 AND ON RA TRACING SR ON THE MONITOR AND DENIES ANY PAIN, PT GOAL IS TO D/C ON DAY OF CARE. AT THIS TIME CARDI HAS SINGED OFF AND AND I HAVE RECIEVED D/C ORDERS, I FILLED OUT D/C PAPERS AND PROVITED D/C EDUCATION TO PT, I TOOK OUT IV AND TELE MONITOR AND GATHERED AND PLACED BELONGINGS WITH PT. HOURLY ROUNDS COMPLETED.
[2018-05-31 10:47] VITALS: BP 152/79
--- NOTE | 2018-05-31 11:22 | NUR ---
Pt discharging to home today, cab voucher provided.
--- NOTE | 2018-05-31 11:54 | NUR ---
VSS, PT WAS WALKED OUT BY STAFF TO CAB,
== END 2018-05-31 11:56 | disposition home or self-care (01) | DRG 377 ==
LOC: M.ERS 21:26 → M.TBA-ER 23:39 → M.2W 23:39
PROVIDERS: Family Medicine; ADMIT Internal Medicine
DX: K92.2 Gastrointestinal hemorrhage, unspecified (principal); N17.0 Acute kidney failure with tubular necrosis; J98.11 Atelectasis; I95.2 Hypotension due to drugs; R55 Syncope and collapse; E78.00 Pure hypercholesterolemia, unspecified; F31.9 Bipolar disorder, unspecified; I12.9 Hypertensive chronic kidney disease with stage 1 through stage 4 chronic kidney disease, or unspecified chronic kidney disease; N18.3 Chronic kidney disease, stage 3 (moderate); I25.10 Atherosclerotic heart disease of native coronary artery without angina pectoris; I73.9 Peripheral vascular disease, unspecified; F17.210 Nicotine dependence, cigarettes, uncomplicated; T50.905A Adverse effect of unspecified drugs, medicaments and biological substances, initial encounter; N40.0 Benign prostatic hyperplasia without lower urinary tract symptoms; K21.9 Gastro-esophageal reflux disease without esophagitis; Z96.1 Presence of intraocular lens; Z79.82 Long term (current) use of aspirin; Z79.899 Other long term (current) drug therapy; Z88.8 Allergy status to other drugs, medicaments and biological substances; Z95.5 Presence of coronary angioplasty implant and graft; Z98.42 Cataract extraction status, left eye; Z98.41 Cataract extraction status, right eye; Y92.89 Other specified places as the place of occurrence of the external cause

== ENCOUNTER 2019-01-13 16:13 | Emergency (ER) | payer MEDICARE, OTHER, MEDICAID ==
[~2019-01-13] VITALS: Ht 182.9 cm; Wt 81.8 kg
[2019-01-13 17:38] VITALS: BP 129/61
== END 2019-01-13 17:38 | disposition home or self-care (01) ==
LOC: M.ERS 16:13
DX: Z71.1 Person with feared health complaint in whom no diagnosis is made (principal); I10 Essential (primary) hypertension; F31.9 Bipolar disorder, unspecified; E78.00 Pure hypercholesterolemia, unspecified; K21.9 Gastro-esophageal reflux disease without esophagitis; N40.0 Benign prostatic hyperplasia without lower urinary tract symptoms; I25.10 Atherosclerotic heart disease of native coronary artery without angina pectoris; F17.210 Nicotine dependence, cigarettes, uncomplicated; Z88.8 Allergy status to other drugs, medicaments and biological substances

== ENCOUNTER 2019-05-21 14:41 | Inpatient (IN) | payer MEDICARE, OTHER, MEDICAID ==
[~2019-05-21] VITALS: Ht 182.9 cm; Wt 85.6 kg
[2019-05-21 14:46] VITALS: BP 111/52
[2019-05-21] MEDS ORDERED: RANEXA500 MG PO (14:53)
[2019-05-21] MEDS ORDERED: EFFEXOR XR75 MG PO ×2 (14:53→14:54)
[2019-05-21] MEDS ORDERED: OMEPRAZOLE40 MG PO (14:54)
[2019-05-21] MEDS ORDERED: FISH OIL 1,001000 M2 PO (14:54)
[2019-05-21] MEDS ORDERED: DEPAKOTE500 MG PO (14:55)
[2019-05-21] MEDS ORDERED: CRESTOR40 MG PO (14:56)
[2019-05-21] MEDS ORDERED: IMDUR 60 MG TAB60 M1 PO (14:56)
[2019-05-21] MEDS ORDERED: TOLTERODINE TART4 MG PO (14:56)
[2019-05-21] MEDS ORDERED: PLAVIX 75 MG TA75 M1 PO (14:57)
[2019-05-21] MEDS ORDERED: ZANTAC 150MG T150 MG PO (14:57)
[2019-05-21] MEDS ORDERED: CILOSTAZOL 100100 M1 PO (14:58)
[2019-05-21] MEDS ORDERED: LISINOPRIL10 MG PO (14:58)
[2019-05-21] MEDS ORDERED: OLANZAPINE15 MG PO (14:58)
[2019-05-21] MEDS ORDERED: CENTRUM SILVER1 EAC2 PO (15:01)
[2019-05-21] MEDS ORDERED: VITAMINC500 PO (15:01)
[2019-05-21] MEDS ORDERED: ASPIR 8181 MG PO (15:01)
[2019-05-21 15:17] LABS: ABSOLUTE EOSINOPHILS 0.2 thou/uL (0.0-0.7); ABSOLUTE LYMPHOCYTES 0.9 thou/uL (0.8-5.3); ABSOLUTE MONOCYTES 0.7 thou/uL (0.0-1.2); ABSOLUTE NEUTROPHILS 3.8 thou/uL (1.6-8.1); BASOPHILS 0.4 %; EOSINOPHILS 3.6 %; HEMATOCRIT 35.4 % (42.0-52.0); HEMOGLOBIN 11.9 gm/dL (14.0-18.0); LYMPHOCYTES 16.5 %; MCH 30.5 pg (26.0-34.0); MCHC 33.5 g/dL (28.0-37.0); MONOCYTES 11.7 %; MPV 7.1 fl. (7.2-11.1); NUCLEATED RBCS 0 /100WBC; PLATELET COUNT* 209 thou/uL (150-400); POLYS 67.8 %; RBC 3.89 mil/uL (4.50-6.00); RDW-CV 15.9 % (10.5-14.5); WBC 5.7 thou/uL (4.0-11.0)
[2019-05-21 15:25] LABS: APTT 32.2 Seconds (25.0-31.3); PROTIME 10.2 Seconds (9.20-11.50)
[2019-05-21 15:39] LABS: ANION GAP 9 mmol/L (7-16); BUN 38 mg/dL (7-18); CALCIUM 9.4 mg/dL (8.5-10.1); CHLORIDE 94 mmol/L (98-107); CO2 23 mmol/L (21-32); CREATININE 2.2 mg/dL (0.6-1.3); GLUCOSE 83 mg/dL (70-99); POTASSIUM 5.4 mmol/L (3.5-5.1); SODIUM 126 mmol/L (136-145)
[2019-05-21 15:54] LABS: ALKALINE PHOSPHATASE 73 U/L (46-116); NT-PRO BRAIN NAT PEPTIDE 225 pg/mL (<300); SGOT 15 U/L (15-37); SGPT 20 U/L (30-65); TOTAL BILIRUBIN 0.4 mg/dL (<0.1-1.0); TOTAL PROTEIN 6.5 g/dL (6.4-8.2); TROPONIN-I LEVEL <0.06 ng/mL (<0.06)
[2019-05-21 17:45] LABS: URINE BILIRUBIN NEGATIVE (Negative); URINE BLOOD NEGATIVE (Negative); URINE CLARITY CLEAR; URINE COLOR YELLOW; URINE GLUCOSE-RANDOM NEGATIVE (Negative); URINE KETONES NEGATIVE (Negative); URINE LEUKOCYTES-REFLEX NEGATIVE (Negative); URINE NITRITE-REFLEX NEGATIVE (Negative); URINE PROTEIN NEGATIVE (Negative); URINE SPECIFIC GRAVITY <= 1.005 (1.005-1.030); URINE UROBILINOGEN 0.2 E.U./dl (0.2-1.0)
[2019-05-21 17:48] LABS: URINE POTASSIUM-RANDOM 35.5 mmol/L
[2019-05-21 20:09] LABS: CREATININE 1.9 mg/dL (0.6-1.3); POTASSIUM 4.3 mmol/L (3.5-5.1)
[2019-05-21 20:32] VITALS: BP 136/60
[2019-05-21 21:40] VITALS: BP 141/72
[2019-05-22 04:20] LABS: CALCIUM 9.4 mg/dL (8.5-10.1); CREATININE 1.7 mg/dL (0.6-1.3); POTASSIUM 4.7 mmol/L (3.5-5.1)
--- NOTE | 2019-05-22 06:12 | NUR ---
PT ARRIVED TO THIS UNIT AT 2140 FROM THE ER. PT ALERT AND ORIENTED. VITALS STABLE RA. MEDS GIVEN ORDERED. PT DENIED PAIN. NO NAUSEA OR VOMITING. IV FLUID IS RUNNING ORDERED. PT SLEPT THROUGH THE NIGHT. HOURLY ROUNDING COMPLETED. WILL CONTINUE TO MONITOR.
[2019-05-22 08:00] VITALS: BP 155/73
[2019-05-22 15:55] VITALS: BP 158/79
--- NOTE | 2019-05-22 16:26 | EKG ---
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: : 1955 Requested By: Evans Colbert Order Number: [id number] MD: Alfonso Daniel Measurements Intervals [place] Rate: 84 P: 44 [place]: 201 QRS: 61 QRSD: 113 T: 67 QT: 390 QTc: 462 Interpretive Statements Sinus rhythm Incomplete right bundle branch block Compared to ECG 05/29/2018 21:35:08 Incomplete right bundle-branch block now present Electronically Signed On 05-22-2019 16:25:49 CDT by Alfonso Daniel [email or web address] <ELECTRONICALLY SIGNED> By: Alfonso Daniel MD, [facility] 05/22/19 1625 1508 1508 Alfonso Daniel MD, [facility] /EPI
--- NOTE | 2019-05-22 17:10 | NUR ---
SW attempted to meet pt and pt was asleep; pt would not awaken to SW calling out hello; pt nurse reported that pt is [place]. Tele psych monitor in room ready for evaluation. Pt has hx of dc AMA. Pt has hx of cab voucher. Pt nurse explained to SW that pt has a inspector floor sub assembly who meets or talks with pt 3 times a week. Pt has transportation through a friend at times when needed. ANTONIETA/ZOILA to continue to follow.
[2019-05-23 04:47] LABS: CALCIUM 9.3 mg/dL (8.5-10.1); CREATININE 1.4 mg/dL (0.6-1.3); MAGNESIUM 1.7 mg/dL (1.8-2.4); POTASSIUM 5.2 mmol/L (3.5-5.1)
--- NOTE | 2019-05-23 06:24 | NUR ---
PT ALERT AND ORIENTED, LITTLE IMPULSIVE. VITALS STABLE RA. MEDS GIVEN ORDERED. TYLENOL GIVEN FOR BACK PAIN PER PT REQUEST. NO NAUSEA OR VOMITING. ELECTROLYTE REPLACEMENT IN PROGRESS. HOURLY ROUNDING COMPLETED. WILL CONTINUE TO MONITOR.
[2019-05-23 07:51] VITALS: BP 134/79
[2019-05-23] MEDS ORDERED: ZYPREXA 5 MG TAB5 M1 PO (08:43)
[2019-05-23 08:56] VITALS: BP 134/79
--- NOTE | 2019-05-23 10:02 | NUR ---
PT DISCHARGED AND LEFT UNIT AT 0958 WITH NURSING STAFF TO HOME IN A CAB. NO IV. PAPER SCRIPTS AND CARE NOTES GIVEN. PT STABLE UPON DISCHARGE
== END 2019-05-23 09:58 | disposition home or self-care (01) | DRG 640 ==
LOC: M.ERS 14:41 → M.TBA-ER 16:08 → M.ORTHSURG 16:08
PROVIDERS: Family Medicine; ADMIT Internal Medicine
DX: E87.1 Hypo-osmolality and hyponatremia (principal); G92 Toxic encephalopathy; G25.9 Extrapyramidal and movement disorder, unspecified; F31.9 Bipolar disorder, unspecified; E78.00 Pure hypercholesterolemia, unspecified; K21.9 Gastro-esophageal reflux disease without esophagitis; I25.10 Atherosclerotic heart disease of native coronary artery without angina pectoris; N40.0 Benign prostatic hyperplasia without lower urinary tract symptoms; I73.9 Peripheral vascular disease, unspecified; G47.00 Insomnia, unspecified; F17.210 Nicotine dependence, cigarettes, uncomplicated; I12.9 Hypertensive chronic kidney disease with stage 1 through stage 4 chronic kidney disease, or unspecified chronic kidney disease; N18.3 Chronic kidney disease, stage 3 (moderate); R63.1 Polydipsia; T50.905A Adverse effect of unspecified drugs, medicaments and biological substances, initial encounter; Y92.89 Other specified places as the place of occurrence of the external cause; Z98.49 Cataract extraction status, unspecified eye; Z95.5 Presence of coronary angioplasty implant and graft; Z88.8 Allergy status to other drugs, medicaments and biological substances; Z79.82 Long term (current) use of aspirin; Z79.899 Other long term (current) drug therapy

== ENCOUNTER 2019-06-09 00:02 | Emergency (ER) | payer MEDICARE, OTHER, MEDICAID ==
[~2019-06-09] VITALS: Ht 182.9 cm; Wt 81.7 kg
[~2019-06-09 00:02] MED LIST changes: +CENTRUM SILVER1 EAC2 PO; +FISH OIL 1,001000 M2 PO; +LISINOPRIL10 MG PO; +OLANZAPINE15 MG PO; +OMEPRAZOLE40 MG PO; +PLAVIX 75 MG TA75 M1 PO; +RANEXA500 MG PO; +TOLTERODINE TART4 MG PO; +VITAMINC500 PO; +ZANTAC 150MG T150 MG PO; +ZYPREXA 5 MG TAB5 M1 PO
[2019-06-09 00:28] LABS: URINE BILIRUBIN NEGATIVE (Negative); URINE BLOOD NEGATIVE (Negative); URINE CLARITY CLEAR; URINE COLOR YELLOW; URINE GLUCOSE-RANDOM NEGATIVE (Negative); URINE KETONES NEGATIVE (Negative); URINE LEUKOCYTES-REFLEX NEGATIVE (Negative); URINE NITRITE-REFLEX NEGATIVE (Negative); URINE PROTEIN NEGATIVE (Negative); URINE SPECIFIC GRAVITY <= 1.005 (1.005-1.030); URINE UROBILINOGEN 0.2 E.U./dl (0.2-1.0)
[2019-06-09] MEDS ORDERED: FLEXERIL PO (01:55)
[2019-06-09] MEDS ORDERED: PERCOCET 7.5-31 EACH PO (01:55)
[2019-06-09 02:21] VITALS: BP 108/60
[2019-06-10] MEDS ORDERED: EFFEXOR XR75 MG PO (11:06)
[2019-06-10] MEDS ORDERED: NEURONTIN 300300 M1 PO (11:08)
== END 2019-06-09 02:22 | disposition home or self-care (01) ==
LOC: M.ERS 00:02
PROVIDERS: Emergency Medicine
DX: M54.5 Low back pain (principal); F31.9 Bipolar disorder, unspecified; E78.00 Pure hypercholesterolemia, unspecified; K21.9 Gastro-esophageal reflux disease without esophagitis; I12.9 Hypertensive chronic kidney disease with stage 1 through stage 4 chronic kidney disease, or unspecified chronic kidney disease; I25.10 Atherosclerotic heart disease of native coronary artery without angina pectoris; I73.9 Peripheral vascular disease, unspecified; N40.0 Benign prostatic hyperplasia without lower urinary tract symptoms; N18.3 Chronic kidney disease, stage 3 (moderate); G47.00 Insomnia, unspecified; F17.210 Nicotine dependence, cigarettes, uncomplicated; Z95.5 Presence of coronary angioplasty implant and graft; Z88.8 Allergy status to other drugs, medicaments and biological substances

== ENCOUNTER 2019-06-10 10:58 | Inpatient (IN) | payer MEDICARE, OTHER, MEDICAID ==
[~2019-06-10] VITALS: Ht 175.3 cm; Wt 79.4 kg
[~2019-06-10 10:58] MED LIST changes: +FLEXERIL PO; +PERCOCET 7.5-31 EACH PO
[2019-06-10 11:00] VITALS: BP 89/52
[2019-06-10] MEDS ORDERED: EFFEXOR XR75 MG PO (11:06)
[2019-06-10] MEDS ORDERED: NEURONTIN 300300 M1 PO (11:08)
[2019-06-10 11:27] LABS: ABSOLUTE EOSINOPHILS 0.2 thou/uL (0.0-0.7); ABSOLUTE MONOCYTES 0.9 thou/uL (0.0-1.2); ABSOLUTE NEUTROPHILS 3.3 thou/uL (1.6-8.1); BASOPHILS 0.5 %; EOSINOPHILS 3.2 %; HEMATOCRIT 31.6 % (42.0-52.0); HEMOGLOBIN 10.6 gm/dL (14.0-18.0); LYMPHOCYTES 17.8 %; MCH 30.7 pg (26.0-34.0); MCHC 33.6 g/dL (28.0-37.0); MCV 91.3 fL (80.0-100.0); MONOCYTES 16.7 %; MPV 7.1 fl. (7.2-11.1); NUCLEATED RBCS 0 /100WBC; PLATELET COUNT* 280 thou/uL (150-400); POLYS 61.8 %; RBC 3.46 mil/uL (4.50-6.00); WBC 5.4 thou/uL (4.0-11.0)
[2019-06-10 11:37] LABS: ANION GAP 12 mmol/L (7-16); APTT 31.4 Seconds (25.0-31.3); BUN 36 mg/dL (7-18); CALCIUM 8.9 mg/dL (8.5-10.1); CHLORIDE 99 mmol/L (98-107); CO2 19 mmol/L (21-32); CREATININE 3.4 mg/dL (0.6-1.3); GLUCOSE 69 mg/dL (70-99); INR 1.1; POTASSIUM 5.2 mmol/L (3.5-5.1); PROTIME 10.9 Seconds (9.20-11.50); SODIUM 130 mmol/L (136-145)
[2019-06-10 11:45] LABS: ACETAMINOPHEN < 2 ug/mL (10-30); SALICYLATE 5.8 mg/dL (2.8-20.0)
[2019-06-10 11:51] LABS: ALKALINE PHOSPHATASE 87 U/L (46-116); CK-MB MASS 5.8 ng/mL (<0.5-3.6); NT-PRO BRAIN NAT PEPTIDE 692 pg/mL (<300); SGOT 16 U/L (15-37); SGPT 18 U/L (30-65); TOTAL BILIRUBIN 0.3 mg/dL (<0.1-1.0); TOTAL PROTEIN 6.2 g/dL (6.4-8.2); TROPONIN-I LEVEL <0.06 ng/mL (<0.06)
[2019-06-10 12:44] LABS: URINE BILIRUBIN NEGATIVE (Negative); URINE BLOOD NEGATIVE (Negative); URINE CLARITY CLEAR; URINE COLOR YELLOW; URINE GLUCOSE-RANDOM NEGATIVE (Negative); URINE KETONES NEGATIVE (Negative); URINE LEUKOCYTES-REFLEX NEGATIVE (Negative); URINE NITRITE-REFLEX NEGATIVE (Negative); URINE PROTEIN NEGATIVE (Negative); URINE UROBILINOGEN 0.2 E.U./dl (0.2-1.0)
[2019-06-10 12:50] LABS: AMP/METHAMP Negative (Negative); BARBITURATES Negative (Negative); BENZODIAZEPINES Negative (Negative); COCAINE Negative (Negative); METHADONE Negative (Negative); OPIATES POSITIVE (Negative); PCP Negative (Negative); THC Negative (Negative)
--- NOTE | 2019-06-10 14:41 | EKG ---
[place] [address] ELECTROCARDIOGRAM REPORT Name: JINNY BUTLER Room: [place] [address] ADM IN .R.#: [id number] Admission: 06/10/19 Attend Phys: Jenise Bahena MD Discharge: Date of : 55 Report #: [id number] THIS REPORT FOR: //name// [facility] ED Test Date: 2019-06-10 Test Time: 11:05:00 Pat Name: JINNY BUTLER Department: Room: [facility] Gender: M Art Manager: : 1955 Requested By: Evans Colbert Order Number: [id number] MD: Thiago Hendrickson Measurements Intervals [place] Rate: 95 P: 44 [place]: 177 QRS: 59 QRSD: 111 T: 54 QT: 355 QTc: 447 Interpretive Statements Sinus rhythm Probable left atrial enlargement RSR' in V1 or V2, right VCD or RVH Compared to ECG 05/21/2019 15:08:18 no change Electronically Signed On 06-10-2019 14:41:38 CDT by Thiago Hendrickson [email or web address] <ELECTRONICALLY SIGNED> By: Thiago Hendrickson MD, [facility] 06/10/19 1441 1105 1105 Thiago Hendrickson MD, [facility] /EPI
[2019-06-10 16:30] VITALS: BP 136/97
[2019-06-10 16:35] VITALS: BP 132/71
[2019-06-10 20:00] VITALS: BP 127/63
[2019-06-11] VITALS (7 sets, daily range): BP systolic 145–176; BP diastolic 60–100
[2019-06-11 05:26] LABS: CALCIUM 9.1 mg/dL (8.5-10.1); MAGNESIUM 1.8 mg/dL (1.8-2.4); PHOSPHORUS* 3.3 mg/dL (2.5-4.9); POTASSIUM 4.8 mmol/L (3.5-5.1)
[2019-06-11 05:27] LABS: ABSOLUTE LYMPHOCYTES 0.6 thou/uL (0.8-5.3); ABSOLUTE MONOCYTES 0.9 thou/uL (0.0-1.2); ABSOLUTE NEUTROPHILS 5.7 thou/uL (1.6-8.1); BASOPHILS 0.2 %; EOSINOPHILS 0.6 %; HEMATOCRIT 34.5 % (42.0-52.0); HEMOGLOBIN 11.5 gm/dL (14.0-18.0); LYMPHOCYTES 7.9 %; MCH 30.4 pg (26.0-34.0); MCHC 33.3 g/dL (28.0-37.0); MCV 91.3 fL (80.0-100.0); MONOCYTES 12.5 %; MPV 7.6 fl. (7.2-11.1); NUCLEATED RBCS 0 /100WBC; PLATELET COUNT* 286 thou/uL (150-400); POLYS 78.8 %; RBC 3.78 mil/uL (4.50-6.00); RDW-CV 15.5 % (10.5-14.5); WBC 7.2 thou/uL (4.0-11.0)
[2019-06-11 05:41] LABS: CREATININE 1.8 mg/dL (0.6-1.3)
[2019-06-12 04:31] LABS: CREATININE 1.4 mg/dL (0.6-1.3); POTASSIUM 4.1 mmol/L (3.5-5.1)
[2019-06-12 04:36] LABS: ABSOLUTE LYMPHOCYTES 0.5 thou/uL (0.8-5.3); ABSOLUTE MONOCYTES 1.2 thou/uL (0.0-1.2); ABSOLUTE NEUTROPHILS 5.9 thou/uL (1.6-8.1); BASOPHILS 0.3 %; EOSINOPHILS 0.4 %; HEMATOCRIT 32.6 % (42.0-52.0); HEMOGLOBIN 10.8 gm/dL (14.0-18.0); MCV 90.9 fL (80.0-100.0); MONOCYTES 15.2 %; MPV 7.5 fl. (7.2-11.1); NUCLEATED RBCS 0 /100WBC; PLATELET COUNT* 243 thou/uL (150-400); POLYS 77.1 %; RBC 3.59 mil/uL (4.50-6.00); WBC 7.7 thou/uL (4.0-11.0)
[2019-06-12 07:59] VITALS: BP 159/77
[2019-06-12 11:49] VITALS: BP 137/65
[2019-06-12 16:04] VITALS: BP 106/58
[2019-06-12 20:00] VITALS: BP 137/71
[2019-06-13] VITALS: BP 138/71
[2019-06-13 04:00] VITALS: BP 138/82
[2019-06-13 07:52] LABS: CALCIUM 9.3 mg/dL (8.5-10.1); CREATININE 1.3 mg/dL (0.6-1.3); POTASSIUM 4.1 mmol/L (3.5-5.1)
[2019-06-13 10:23] VITALS: BP 152/71
[2019-06-13 10:41] VITALS: BP 152/71
[2019-06-13] MEDS ORDERED: ZYPREXA15 MG PO (10:53)
[2019-06-13 10:56] VITALS: BP 152/71
[2019-06-13] MEDS ORDERED: EFFEXOR XR75 MG PO (10:57)
== END 2019-06-13 12:10 | disposition home or self-care (01) | DRG 917 ==
LOC: M.ERS 10:58 → M.2W 12:31 → M.TBA-ER 12:31 → M.2W 16:34
PROVIDERS: Family Medicine; ADMIT Family Medicine
DX: T40.2X1A Poisoning by other opioids, accidental (unintentional), initial encounter (principal); G92 Toxic encephalopathy; N17.9 Acute kidney failure, unspecified; F31.9 Bipolar disorder, unspecified; E78.5 Hyperlipidemia, unspecified; I25.10 Atherosclerotic heart disease of native coronary artery without angina pectoris; G47.00 Insomnia, unspecified; I73.9 Peripheral vascular disease, unspecified; E78.00 Pure hypercholesterolemia, unspecified; I12.9 Hypertensive chronic kidney disease with stage 1 through stage 4 chronic kidney disease, or unspecified chronic kidney disease; K21.9 Gastro-esophageal reflux disease without esophagitis; N40.0 Benign prostatic hyperplasia without lower urinary tract symptoms; N18.3 Chronic kidney disease, stage 3 (moderate); F17.210 Nicotine dependence, cigarettes, uncomplicated; G24.01 Drug induced subacute dyskinesia; F25.9 Schizoaffective disorder, unspecified; Z98.49 Cataract extraction status, unspecified eye; Z87.11 Personal history of peptic ulcer disease; Z95.5 Presence of coronary angioplasty implant and graft; Z88.8 Allergy status to other drugs, medicaments and biological substances; Y92.89 Other specified places as the place of occurrence of the external cause

== ENCOUNTER 2019-07-18 14:01 | Inpatient (IN) | payer MEDICARE, OTHER, MEDICAID ==
[~2019-07-18] VITALS: Ht 182.9 cm; Wt 81.7 kg
[~2019-07-18 14:01] MED LIST changes: +ZYPREXA15 MG PO
[2019-07-18 14:03] VITALS: BP 111/64
[2019-07-18 14:23] LABS: ABSOLUTE EOSINOPHILS 0.2 thou/uL (0.0-0.7); ABSOLUTE LYMPHOCYTES 0.9 thou/uL (0.8-5.3); ABSOLUTE MONOCYTES 0.6 thou/uL (0.0-1.2); ABSOLUTE NEUTROPHILS 3.2 thou/uL (1.6-8.1); BASOPHILS 0.6 %; EOSINOPHILS 4.6 %; HEMATOCRIT 29.4 % (42.0-52.0); HEMOGLOBIN 10.1 gm/dL (14.0-18.0); LYMPHOCYTES 18.9 %; MCH 31.3 pg (26.0-34.0); MCHC 34.2 g/dL (28.0-37.0); MCV 91.4 fL (80.0-100.0); MONOCYTES 12.3 %; MPV 6.8 fl. (7.2-11.1); NUCLEATED RBCS 0 /100WBC; PLATELET COUNT* 213 thou/uL (150-400); POLYS 63.6 %; RBC 3.22 mil/uL (4.50-6.00); RDW-CV 16.4 % (10.5-14.5)
[2019-07-18 14:32] LABS: ANION GAP 10 mmol/L (7-16); BUN 41 mg/dL (7-18); CALCIUM 8.7 mg/dL (8.5-10.1); CHLORIDE 99 mmol/L (98-107); CO2 21 mmol/L (21-32); CREATININE 2.2 mg/dL (0.6-1.3); GLUCOSE 79 mg/dL (70-99); POTASSIUM 4.7 mmol/L (3.5-5.1); SODIUM 130 mmol/L (136-145)
[2019-07-18 14:43] LABS: ALKALINE PHOSPHATASE 87 U/L (46-116); LIPASE 243 U/L (73-393); NT-PRO BRAIN NAT PEPTIDE 496 pg/mL (<300); SGOT 14 U/L (15-37); SGPT 19 U/L (30-65); TOTAL BILIRUBIN 0.3 mg/dL (<0.1-1.0); TOTAL PROTEIN 6.3 g/dL (6.4-8.2); TROPONIN-I LEVEL <0.06 ng/mL (<0.06)
[2019-07-18 16:27] LABS: URINE BILIRUBIN NEGATIVE (Negative); URINE BLOOD NEGATIVE (Negative); URINE CLARITY CLEAR; URINE COLOR YELLOW; URINE GLUCOSE-RANDOM NEGATIVE (Negative); URINE KETONES NEGATIVE (Negative); URINE LEUKOCYTES-REFLEX NEGATIVE (Negative); URINE NITRITE-REFLEX NEGATIVE (Negative); URINE PROTEIN NEGATIVE (Negative); URINE SPECIFIC GRAVITY <= 1.005 (1.005-1.030); URINE UROBILINOGEN 0.2 E.U./dl (0.2-1.0)
[2019-07-18 16:32] VITALS: BP 147/84
[2019-07-18 16:35] LABS: AMP/METHAMP Negative (Negative); BARBITURATES Negative (Negative); BENZODIAZEPINES Negative (Negative); COCAINE Negative (Negative); METHADONE Negative (Negative); OPIATES Negative (Negative); PCP Negative (Negative); THC Negative (Negative)
[2019-07-18 16:45] VITALS: BP 135/66
[2019-07-18 16:50] VITALS: BP 138/76
--- NOTE | 2019-07-18 17:55 | NUR ---
REC'D BEDSIDE REPORT FROM ED RN. PATIENT TO UNIT VIA GURNEY AND ED CASTING PLUG ASSEMBLER. OX4, ABLE TO EXPRESS NEEDS TO STAFF. HEMATOLOGY NURSE EDUCATOR APPLIED, SR, 1ST DEGREE AV BLOCK. O2 SATS >92% ON RA. ADMISSION ASSESSMENT AND EDUCATION DOCUMENTATION COMPLETE. IV FLUIDS INFUSING. PATIENT USING URINAL FOR URGENCY. UP WITH UNSTEADY GAIT, BED ALARM IN USE. CALL LIGHT IN REACH. HOURLY ROUNDING FOR SAFETY AND PATIENT NEEDS.
[2019-07-19] VITALS: BP 126/72
[2019-07-19 04:00] VITALS: BP 140/69
[2019-07-19 11:37] LABS: HEMATOCRIT 34.6 % (42.0-52.0); HEMOGLOBIN 11.6 gm/dL (14.0-18.0)
[2019-07-19 11:43] LABS: CALCIUM 9.6 mg/dL (8.5-10.1); CREATININE 1.3 mg/dL (0.6-1.3); POTASSIUM 4.5 mmol/L (3.5-5.1)
--- NOTE | 2019-07-19 12:49 | EKG ---
[place] [address] ELECTROCARDIOGRAM REPORT Name: BUTLERJINNY Room: [address] ADM IN .R.#: [id number] Admission: 07/18/19 Attend Phys: Chente Escobar Discharge: Date of : 55 Report #: [id number] THIS REPORT FOR: //name// [facility] ED Test Date: 2019-07-18 Test Time: 14:22:44 Pat Name: JINNY BUTLER Department: Room: [facility] Gender: M President/Gm Production & Live Experiences: [place] : 1955 Requested By: Koko Melendez Order Number: [id number] MD: Keny Luciano Measurements Intervals [place] Rate: 79 P: 70 [place]: 183 QRS: 75 QRSD: 145 T: 41 QT: 395 QTc: 453 Interpretive Statements Sinus rhythm Probable left atrial enlargement IVCD, consider incomplete RBBB Compared to ECG 06/10/2019 11:05:00 no significant change Electronically Signed On 07-19-2019 12:49:03 CDT by Keny Luciano [email or web address] <ELECTRONICALLY SIGNED> By: Keny Luciano MD, [facility] 07/19/19 1249 1422 1422 Keny Luciano MD, [facility] /EPI
[2019-07-19 13:54] VITALS: BP 157/115
[2019-07-19 17:54] LABS: CALCIUM 8.9 mg/dL (8.5-10.1); CREATININE 1.3 mg/dL (0.6-1.3); POTASSIUM 4.4 mmol/L (3.5-5.1)
[2019-07-19 20:00] VITALS: BP 122/57
[2019-07-20] VITALS: BP 143/48
[2019-07-20 04:00] VITALS: BP 170/70
[2019-07-20 05:07] LABS: CALCIUM 9.3 mg/dL (8.5-10.1); CREATININE 1.3 mg/dL (0.6-1.3); POTASSIUM 4.3 mmol/L (3.5-5.1)
--- NOTE | 2019-07-20 08:00 | NUR ---
ASSUMED PT CARE AT 0700, PT UP IN BED, A&O X4, VSS, BROOM HANDLE DIPPER TRACING SINUS RHYTHM, FULL ASSESSMENT CHARTED. RHONCHI HEARD THROUGH ALL LOBES AND IN CHEST, PT STATES HE "ALWAYS SOUNDS LIKE THAT" AND " SOON HE HAS A CIGARETTE, IT GOES AWAY". PT DENIES ANY SOA/PAIN AT THIS TIME. UP WITH STANDBY, PT ABLE TO MAKE NEEDS KNOWN. WILL CONT POC.
[2019-07-20 12:15] VITALS: BP 128/67
[2019-07-20] MEDS ORDERED: LOTENSIN20 MG PO ×2 (12:45→14:24)
[2019-07-20 14:47] VITALS: BP 128/67
--- NOTE | 2019-07-20 17:55 | NUR ---
ASSUMED PT CARE AT 0700, PT A&O X4, ABLE TO MAKE NEEDS KNOWN, AT BEDSIDE. UP WITH STANDBY ASSIST AND WALKER, MACHINE PACKAGE SEALER TRACING A PACED, FULL ASSESSMENT CHARTED. PTS BP WAS STABLE IN AM, AFTER HAVING AM MEDS, PTS BP DROPPED TO 80'S/40'S. NOTIFIED, CARDIOLOGY CONSULT PLACED. PT REMAINS HYPOTENSIVE THROUGHOUT SHIFT DISPITE HOLDING CARDIAC MEDS, PT ASYMPTOMATIC. HOURLY ROUNDING COMPLETED.
--- NOTE | 2019-07-20 18:30 | NUR ---
PT DISCHARGED FROM UNIT AT APPROX 1820, EDUCATED ON ALL DISCHARGE INSTRUCTIONS INCLUDING FOLLOW UP APPTS AND MEDICATIONS. WATER WELL DRILLER AND IV REMOVED, HOURLY ROUNDING COMPLETED.
== END 2019-07-20 18:30 | disposition home or self-care (01) | DRG 314 ==
LOC: M.ERS 14:01 → M.2W 14:58 → M.TBA-ER 14:58 → M.2W 16:39
PROVIDERS: Emergency Medicine; ADMIT Internal Medicine
DX: I95.9 Hypotension, unspecified (principal); G93.41 Metabolic encephalopathy; N17.9 Acute kidney failure, unspecified; E87.1 Hypo-osmolality and hyponatremia; E44.0 Moderate protein-calorie malnutrition; F31.9 Bipolar disorder, unspecified; E78.00 Pure hypercholesterolemia, unspecified; K21.9 Gastro-esophageal reflux disease without esophagitis; I25.10 Atherosclerotic heart disease of native coronary artery without angina pectoris; I73.9 Peripheral vascular disease, unspecified; N40.0 Benign prostatic hyperplasia without lower urinary tract symptoms; N18.3 Chronic kidney disease, stage 3 (moderate); I12.9 Hypertensive chronic kidney disease with stage 1 through stage 4 chronic kidney disease, or unspecified chronic kidney disease; G47.00 Insomnia, unspecified; F17.210 Nicotine dependence, cigarettes, uncomplicated; E86.0 Dehydration; D64.9 Anemia, unspecified; Z98.42 Cataract extraction status, left eye; Z98.41 Cataract extraction status, right eye; Z79.899 Other long term (current) drug therapy; Z87.11 Personal history of peptic ulcer disease; Z79.82 Long term (current) use of aspirin; Z88.8 Allergy status to other drugs, medicaments and biological substances; Z68.24 Body mass index [BMI] 24.0-24.9, adult

== ENCOUNTER 2019-07-31 12:57 | Emergency (ER) | payer MEDICARE, MEDICAID ==
[~2019-07-31] VITALS: Ht 182.9 cm; Wt 80.7 kg
[~2019-07-31 12:57] MED LIST changes: +LOTENSIN20 MG PO
[2019-07-31] MEDS ORDERED: INDOMETHACIN 5050 M1 PO (13:10)
[2019-07-31 13:17] LABS: ABSOLUTE EOSINOPHILS 0.2 thou/uL (0.0-0.7); ABSOLUTE LYMPHOCYTES 1.1 thou/uL (0.8-5.3); ABSOLUTE MONOCYTES 0.6 thou/uL (0.0-1.2); ABSOLUTE NEUTROPHILS 3.5 thou/uL (1.6-8.1); BASOPHILS 0.5 %; EOSINOPHILS 4.1 %; HEMATOCRIT 31.6 % (42.0-52.0); HEMOGLOBIN 10.6 gm/dL (14.0-18.0); LYMPHOCYTES 20.2 %; MCH 30.9 pg (26.0-34.0); MCHC 33.6 g/dL (28.0-37.0); MPV 7.2 fl. (7.2-11.1); NUCLEATED RBCS 0 /100WBC; PLATELET COUNT* 266 thou/uL (150-400); POLYS 64.2 %; RBC 3.44 mil/uL (4.50-6.00); RDW-CV 16.9 % (10.5-14.5); WBC 5.4 thou/uL (4.0-11.0)
[2019-07-31 13:24] LABS: CALCIUM 9.1 mg/dL (8.5-10.1); CREATININE 2.3 mg/dL (0.6-1.3); POTASSIUM 4.9 mmol/L (3.5-5.1)
[2019-07-31 13:29] LABS: ALBUMIN 3.2 g/dL (3.4-5.0); TOTAL BILIRUBIN 0.2 mg/dL (<0.1-1.0); TOTAL PROTEIN 6.8 g/dL (6.4-8.2)
[2019-07-31 13:47] LABS: URINE BILIRUBIN NEGATIVE (Negative); URINE BLOOD NEGATIVE (Negative); URINE CLARITY CLEAR; URINE COLOR YELLOW; URINE GLUCOSE-RANDOM NEGATIVE (Negative); URINE KETONES NEGATIVE (Negative); URINE LEUKOCYTES-REFLEX NEGATIVE (Negative); URINE NITRITE-REFLEX NEGATIVE (Negative); URINE PROTEIN NEGATIVE (Negative); URINE UROBILINOGEN 0.2 E.U./dl (0.2-1.0)
[2019-07-31 15:37] VITALS: BP 157/82
--- NOTE | 2019-07-31 16:19 | EKG ---
[place] [address] ELECTROCARDIOGRAM REPORT Name: BUTLERJINNY R Room: [facility]#: [id number] Admission: 07/31/19 Attend Phys: Discharge: 07/31/19 Date of : 55 Report #: [id number] THIS REPORT FOR: //name// [facility] ED Test Date: 2019-07-31 Test Time: 13:05:27 Pat Name: JINNY BUTLER Department: Room: Gender: M Awning Spreader: : 1955 Requested By: Margaret Anna Order Number: [id number] MD: Alfonso Daniel Measurements Intervals [place] Rate: 78 P: 61 [place]: 188 QRS: 60 QRSD: 148 T: 21 QT: 403 QTc: 460 Interpretive Statements Sinus rhythm Consider left atrial enlargement Right bundle branch block Compared to ECG 07/18/2019 14:22:44 No significant changes Electronically Signed On 07-31-2019 16:19:37 CDT by Alfonso Daniel [email or web address] <ELECTRONICALLY SIGNED> By: Alfonso Daniel MD, [facility] 07/31/19 1619 1305 1305 Alfonso Daniel MD, [facility] /EPI
== END 2019-07-31 15:45 | disposition home or self-care (01) ==
LOC: M.ERS 12:57
PROVIDERS: Personal Emergency Response Attendant
DX: N28.9 Disorder of kidney and ureter, unspecified (principal); E86.0 Dehydration; F17.210 Nicotine dependence, cigarettes, uncomplicated; F31.9 Bipolar disorder, unspecified; E78.00 Pure hypercholesterolemia, unspecified; K21.9 Gastro-esophageal reflux disease without esophagitis; I73.9 Peripheral vascular disease, unspecified; I25.10 Atherosclerotic heart disease of native coronary artery without angina pectoris; I12.9 Hypertensive chronic kidney disease with stage 1 through stage 4 chronic kidney disease, or unspecified chronic kidney disease; N18.3 Chronic kidney disease, stage 3 (moderate); G47.00 Insomnia, unspecified; Z88.8 Allergy status to other drugs, medicaments and biological substances

== ENCOUNTER 2019-08-04 21:20 | Inpatient (IN) | payer MEDICARE, MEDICAID ==
[~2019-08-04] VITALS: Ht 182.9 cm; Wt 73.8 kg
[~2019-08-04 21:20] MED LIST changes: +INDOMETHACIN 5050 M1 PO
[2019-08-04 21:46] LABS: ABSOLUTE EOSINOPHILS 0.2 thou/uL (0.0-0.7); ABSOLUTE LYMPHOCYTES 1.4 thou/uL (0.8-5.3); ABSOLUTE MONOCYTES 0.6 thou/uL (0.0-1.2); ABSOLUTE NEUTROPHILS 2.8 thou/uL (1.6-8.1); BASOPHILS 0.3 %; EOSINOPHILS 3.4 %; HEMATOCRIT 30.3 % (42.0-52.0); HEMOGLOBIN 10.4 gm/dL (14.0-18.0); LYMPHOCYTES 27.7 %; MCH 31.4 pg (26.0-34.0); MCHC 34.3 g/dL (28.0-37.0); MCV 91.5 fL (80.0-100.0); MONOCYTES 12.2 %; MPV 7.9 fl. (7.2-11.1); NUCLEATED RBCS 0 /100WBC; PLATELET COUNT* 198 thou/uL (150-400); POLYS 56.4 %; RBC 3.31 mil/uL (4.50-6.00); RDW-CV 16.7 % (10.5-14.5); WBC 5.1 thou/uL (4.0-11.0)
[2019-08-04 21:52] LABS: ANION GAP 13 mmol/L (7-16); BUN 38 mg/dL (7-18); CHLORIDE 106 mmol/L (98-107); CO2 17 mmol/L (21-32); CREATININE 2.6 mg/dL (0.6-1.3); GLUCOSE 57 mg/dL (70-99); POTASSIUM 4.7 mmol/L (3.5-5.1); SODIUM 136 mmol/L (136-145)
[2019-08-04 21:55] LABS: INR 1.1; PROTIME 11.3 Seconds (9.20-11.50)
[2019-08-04 22:11] LABS: ALBUMIN 3.2 g/dL (3.4-5.0); ALKALINE PHOSPHATASE 101 U/L (46-116); LIPASE 157 U/L (73-393); NT-PRO BRAIN NAT PEPTIDE 131 pg/mL (<300); SGOT 14 U/L (15-37); SGPT 15 U/L (30-65); TOTAL BILIRUBIN 0.3 mg/dL (<0.1-1.0); TOTAL PROTEIN 6.7 g/dL (6.4-8.2); TROPONIN-I LEVEL <0.06 ng/mL (<0.06)
[2019-08-04 22:33] LABS: SALICYLATE 6.5 mg/dL (2.8-20.0)
[2019-08-04 22:33] LABS: AMP/METHAMP Negative (Negative); BARBITURATES Negative (Negative); BENZODIAZEPINES Negative (Negative); COCAINE Negative (Negative); METHADONE Negative (Negative); OPIATES Negative (Negative); PCP Negative (Negative); THC Negative (Negative)
[2019-08-04 22:34] LABS: ACETAMINOPHEN < 2 ug/mL (10-30)
[2019-08-04 22:39] LABS: URINE COLOR ND
[2019-08-04 22:45] LABS: URINE CLARITY ND
[2019-08-04 22:46] LABS: URINE SPECIFIC GRAVITY ND (1.005-1.030)
[2019-08-04 22:47] LABS: URINE PROTEIN ND (Negative)
[2019-08-04 22:49] LABS: URINE GLUCOSE-RANDOM ND (Negative); URINE REDUCING SUBSTANCE ND % (Negative)
[2019-08-04 22:50] LABS: ACETEST (KETONE CONFIRMATORY) ND (Negative); URINE BILIRUBIN ND (Negative); URINE KETONES ND (Negative)
[2019-08-04 22:51] LABS: ICTOTEST (BILI CONFIRMATORY) ND (Negative)
[2019-08-04 22:53] LABS: URINE BLOOD ND (Negative)
[2019-08-04 22:54] LABS: URINE NITRITE-REFLEX ND (Negative)
[2019-08-04 22:55] LABS: URINE UROBILINOGEN ND E.U./dl (0.2-1.0)
[2019-08-04 22:56] LABS: BACTERIA-REFLEX ND /HPF (None Seen); CASTS ND /LPF (None Seen); CELLULAR CASTS ND /LPF (None Seen); COARSE GRANULAR CASTS ND /LPF (None Seen); CRYSTALS ND /LPF (None Seen); FINE GRANULAR CASTS ND /LPF (None Seen); HYALINE CASTS ND /LPF (None Seen); MUCUS ND strn/LPF (None Seen); RBC CASTS ND /LPF; RENAL EPITHELIAL CELLS ND /LPF (None Seen); SQUAMOUS ND /LPF (0-3); TRANSITIONAL EPITHEL CELL ND /LPF (None Seen); URINE LEUKOCYTES-REFLEX ND (Negative); URINE RBC ND /HPF (0-2); URINE WBC-REFLEX ND /HPF (0-5); WAXY CAST ND /LPF (None Seen); WBC CASTS ND /LPF; WBC CLUMPS ND (None Seen)
[2019-08-04 22:57] LABS: AMORPHOUS PHOSPHATES ND /LPF (None Seen); AMORPHOUS URATES ND /LPF (None Seen); CALCIUM OXALATE ND /LPF (None Seen); TRIPLE PHOSPHATE CRYSTALS ND /LPF (None Seen); URIC ACID CRYSTALS ND /LPF (None Seen); YEAST-REFLEX ND (None Seen)
[2019-08-04 23:01] LABS: BE -10.5 mmol/L (-2 to +3); PCO2 31.7 mmHg (35.0-45.0); PO2 74.5 mmHg (75.0-100.0)
[2019-08-04 23:08] LABS: pH 7.292 (7.340-7.450)
[2019-08-05] VITALS (21 sets, daily range): BP systolic 106–182; BP diastolic 56–110
--- NOTE | 2019-08-05 01:44 | NUR ---
DISCHARGE SUMMARY CHARTING UNAVAILABLE PT DCD TO ICU 2 WITH ALL BELONGINGS. REPORT CALLED TO SONIA STARR. HR 90 RR14 O2 SAAT 100% BP 106/57 PT TRANSFERRED VIA STRETCHER BY RN WITH CARDIACMONITOR AND O2 INTACT ALL MEDS TIMED OFF ON EMAR. IV INTACT .
[2019-08-05 01:49] LABS: BE -10.7 mmol/L (-2 to +3); PCO2 33.9 mmHg (35.0-45.0); PO2 121.9 mmHg (75.0-100.0)
[2019-08-05 01:57] LABS: pH 7.271 (7.340-7.450)
--- NOTE | 2019-08-05 05:23 | NUR ---
PT. ADMITTED TO ROOM 2 ICU AT 0200. SLEEPING, AROUSABLE TO NOXIOUS STIMULI. SEE ADMISSION ASSESSMENT. NO FAMILY OR FRIENDS PRESENT AT TIME OF ADMISSION. PT. UNABLE TO COMMUNICATE PAST MEDICAL HISTORY TO THIS RN. NRB 10L. PT. SINUS RHYTHM. BED ALARM ARMED DUE TO PREVIOUS IMPULSIVENESS. CALL LIGHT IN REACH, WILL CONTINUE TO MONITOR.
[2019-08-05 08:30] LABS: URINE BILIRUBIN NEGATIVE (Negative); URINE BLOOD NEGATIVE (Negative); URINE CLARITY CLEAR; URINE COLOR YELLOW; URINE GLUCOSE-RANDOM NEGATIVE (Negative); URINE KETONES NEGATIVE (Negative); URINE LEUKOCYTES-REFLEX NEGATIVE (Negative); URINE NITRITE-REFLEX NEGATIVE (Negative); URINE PROTEIN NEGATIVE (Negative); URINE UROBILINOGEN 0.2 E.U./dl (0.2-1.0)
[2019-08-05 08:31] LABS: CALCIUM 9.3 mg/dL (8.5-10.1); CREATININE 1.8 mg/dL (0.6-1.3); MAGNESIUM 1.6 mg/dL (1.8-2.4); POTASSIUM 4.6 mmol/L (3.5-5.1)
--- NOTE | 2019-08-05 09:34 | EKG ---
[place] [address] ELECTROCARDIOGRAM REPORT Name: BUTLERJINNY Room: [address] ADM IN M.R.#: [id number] Admission: 08/05/19 Attend Phys: Chente Escobar Discharge: Date of : 55 Report #: [id number] THIS REPORT FOR: //name// [facility] ED Test Date: 2019-08-04 Test Time: 21:38:55 Pat Name: JINNY BUTLER Department: Room: [facility] Gender: M Leg Breaker: [place] : 1955 Requested By: Cassy Dodson Order Number: [id number] MD: Alfonso Daniel Measurements Intervals [place] Rate: 78 P: 84 [place]: 203 QRS: 77 QRSD: 154 T: 61 QT: 416 QTc: 474 Interpretive Statements Sinus rhythm Right bundle branch block Compared to ECG 07/31/2019 13:05:27 No significant changes Electronically Signed On 08-05-2019 9:33:37 CDT by Alfonso Daniel [email or web address] <ELECTRONICALLY SIGNED> By: Alfosno Daniel MD, [facility] 08/05/19932 37 37 Alfonso Daniel MD, [facility] /EPI
--- NOTE | 2019-08-05 16:21 | NUR ---
ASSUMED CARE OF PT AROUND 0730 THIS AM. REFER TO ASSESSMENT. PT CONTINUES TO BE SLEEPING, DROWSY, AND CONFUSED THROUGHOUT SHIFT. AWAKES FOR BRIEF PERIODS THEN QUICKLY FALLS BACK TO SLEEP. PT POOR HISTORIAN. NEURO CONSULTED AND ORDERED A MRI FOR PT. UNABLE TO COMPLETE MRI QUESTIONAIRE AT THIS TIME. CONTACTED PT'S SO WHO COULD NOT GIVE ANY INFORMATION REGARDING MRI QUESTIONAIRE. SPOKE WITH A CARE NURSE REFRIGERATOR CABINETMAKER AT PT'S OUTPATIENT PSYCH FACILITY WHO WAS UNABLE TO OBTAIN INFORMATION WELL. EEG COMPLETED THIS SHIFT. NO OTHER CONCERNS AT THIS TIME. CLWR. WCTM.
[2019-08-06] VITALS (10 sets, daily range): BP systolic 120–169; BP diastolic 69–86
[2019-08-06 02:35] LABS: HEMATOCRIT 33.8 % (42.0-52.0); HEMOGLOBIN 11.4 gm/dL (14.0-18.0); MCH 31.1 pg (26.0-34.0); MCHC 33.9 g/dL (28.0-37.0); MCV 91.8 fL (80.0-100.0); MPV 8.2 fl. (7.2-11.1); RBC 3.68 mil/uL (4.50-6.00); RDW-CV 16.6 % (10.5-14.5); WBC 5.3 thou/uL (4.0-11.0)
[2019-08-06 02:44] LABS: ALBUMIN 2.7 g/dL (3.4-5.0); CALCIUM 9.4 mg/dL (8.5-10.1); CREATININE 1.2 mg/dL (0.6-1.3); MAGNESIUM 1.6 mg/dL (1.8-2.4); POTASSIUM 4.1 mmol/L (3.5-5.1); TOTAL BILIRUBIN 0.3 mg/dL (<0.1-1.0); TOTAL PROTEIN 6.2 g/dL (6.4-8.2)
--- NOTE | 2019-08-06 10:30 | NUR ---
PT.MORE ALERT AND ORIENTED THAN YESTERDAY. HE ASKED ME TO CALL HIS HOME NUMBER HE COULD NOT REMEMBER IT. CALL WOULD NOT GO THROUGH THE FIRST TIME. HE DID ASK IF I HAD DIALED A 9 FIRST TO GET AN OUTSIDE LINE. HE THEN RECITED HIS NUMBER. HE SPOKE WITH SOPHY Rodriguez ON PHONE. OTHER INFORMAITON TAKEN FROM PREVIOUS RECORD. CM CALLED [facility] AND SPOKE WITH NORMA. SHE SAID PT.IS CURRENT WITH THEM FOR HH. SHE WOULD PUT HOSPITAL HOLD ON HIS CHART AND THEY WILL ACCEPT HIM BACK AT DISCHARGE. HE DOES HAVE DAILY PERSON COME TO HIS HOME, TO SECURE MED COMPLIANC, FROM [facility] ([facility]). PT.IS VERY HARD OF HEARING. CM WILL FOLLOW.
--- NOTE | 2019-08-06 11:09 | NUR ---
ASSUMED CARE OF PT AROUND 0730 THIS AM. REFER TO ASSESSMENT. PT MORE ALERT AND ORIENTED THIS SHIFT. ABLE TO OBTAIN MRI QUESTIONAIRE FROM PT AND COMPLETED MRI. REFER TO RESULTS. PT DOWNGRADED TO TELE STATUS. NO TELE ROOM AVAILABLE AT THIS TIME. CLWR. WCTM.
--- NOTE | 2019-08-06 12:51 | CON ---
[address] [address] CONSULTATION Name: JINNY BUTLER Monty Room: [address] IN M.R.#: [id number] Admission: 08/05/19 Attend Phys: Chente Escobar Discharge: Date of : 55 Report #: [id number] THIS REPORT FOR: //name// CC: Taylor Church DATE OF SERVICE: 08/05/2019 CONSULTING PHYSICIAN: Darrion Church DO REASON FOR CONSULTATION: Acute kidney injury. HISTORY OF PRESENT ILLNESS: A 64-year-old gentleman who is admitted with worsening confusion. He has an underlying history of bipolar disorder. I am asked to see him because of a rise in creatinine, the creatinine was 2.6 on admission. He was taking lisinopril and indomethacin and those have been stopped. He received IV fluids. At this time, he is not able to provide much in the way of meaningful history, and history is obtained largely through chart review. He was recently hospitalized here as well and is on multiple psychotropic medications. REVIEW OF SYSTEMS: Constitutional, psych, heme, eyes, ENT, respiratory, cardiac, GI, , and endocrine all negative except as documented above and as best as can be ascertained. MEDICATIONS: Reviewed. PAST MEDICAL HISTORY: Bipolar disorder, history of hypertension, dyslipidemia, GERD, coronary artery disease, peripheral vascular disease, history of BPH, and history of chronic kidney disease stage 3. SOCIAL HISTORY: Positive for tobacco. FAMILY HISTORY: Not pertinent in 64-year-old gentleman. PHYSICAL EXAMINATION: VITAL SIGNS: Blood pressure 147/81, pulse 92, respirations 21, temperature 36. GENERAL: No acute distress. EYES: Closed. EARS: Externally normal. CARDIOVASCULAR: Regular rate. LUNGS: Diminished breath sounds. ABDOMEN: Soft. MUSCULOSKELETAL: Nontender. PSYCHIATRIC: [place] [address] CONSULTATION Name: JINNY BUTLER Room: [address] IN [facility]#: [id number] Admission: 08/05/19 Attend Phys: Chente Escobar Discharge: Date of : 55 Report #: [id number] LABORATORY DATA: White cell count 5.1, hemoglobin 10.4, platelets 198. Sodium 142, potassium 4.6, chloride 112, bicarbonate 20, BUN 26, creatinine 1.8, glucose 93, calcium 9.3, magnesium 1.6. ASSESSMENT: 1. Acute kidney injury in the setting of volume depletion while on lisinopril and indomethacin. Admission creatinine was 2.6 and 1.8 on 08/05. Looking back in 06/2019, creatinine was as high as 3.4, in 05/2019, creatinine was 1.9. UA as noted. 2. Chronic kidney disease stage 3. In 05/2019, creatinine was 1.9. 3. Hypertension. 4. Coronary artery disease. 5. History of bipolar disorder. PLAN: 1. Renal function improved on IV fluids. Continue hydration. 2. Avoid lisinopril. 3. Avoid NSAIDs indefinitely, if possible. 4. Hypomagnesemia. Magnesium was replaced. 5. Check labs again in the a.m. Thank you for requesting my opinion in the care and management of this patient. <ELECTRONICALLY SIGNED> By: Gomez Jimenez MD 08/06/19 1251 1631 2043Abichente Jimenez MD /nt
--- NOTE | 2019-08-06 16:23 | NUR ---
PT PROGRESSING TOWARDS GOALS THIS SHIFT. MRI COMPLETED. PT WITH INCREASED ALERTNESS AND ORIENTATION THIS SHIFT. TOLERATED DIET. MAINTAINING BLOOD SUGARS WNL. NO OTHER CONCERNS AT THIS TIME. CLWR. WCTM.
--- NOTE | 2019-08-06 17:36 | NUR ---
REPORT GIVEN TO RECEIVING RN. PT TRANSFERRING TO ROOM 304.
--- NOTE | 2019-08-07 05:34 | NUR ---
PATIENT ARRIVED UP HERE FROM ICU AT ABOUT 1944. PATIENT RESTED PART OF THE NIGHT BUT WAS RESTLESS AND ANXIOUS AT TIMES AND WAS GIVEN BENADRYL TWICE THIS SHIFT FOR ANXIETY. IV REMAINS SALINE LOCKED. PATIENT HAD NO COMPLAINTS OF PAIN. WILL CONTINUE TO MONITOR.
[2019-08-07 08:08] VITALS: BP 147/76
--- NOTE | 2019-08-07 16:30 | NUR ---
ANTONIETA spoke with ZOILA Harley from [facility] who expressed that she might be able to assist with transport home but otherwise, pt might not have any resources for a ride at dc. SW to continue to follow to assist with safe dc planning.
[2019-08-07 17:22] VITALS: BP 157/76
--- NOTE | 2019-08-07 18:58 | NUR ---
PATIENT ASLEEP IN BED. NO SIGNS OF DISTRESS OBSERVED. ALL SAFETY MEASURES MAINTAINED. FACES SCALE USED TO SCORE PAIN WITH TYLENOL ADMINISTRATION. PATIENT AMBULATING WITH STAND BY ASSISTANCE THIS EVENING.
[2019-08-07 20:00] VITALS: BP 152/73
--- NOTE | 2019-08-08 04:26 | NUR ---
PT SLEEPING THROUGH THE NIGHT. MEDS GIVEN ORDERED. NO C/O PAIN. PT ORIENTED TIMES 3-4, HOURLY ROUNDING COMPLETED. WILL CONTINUE TO MONITOR.
[2019-08-08 05:16] LABS: HEMATOCRIT 31.1 % (42.0-52.0); HEMOGLOBIN 10.6 gm/dL (14.0-18.0); MCH 30.8 pg (26.0-34.0); MCHC 34.1 g/dL (28.0-37.0); MCV 90.5 fL (80.0-100.0); MPV 8.3 fl. (7.2-11.1); RBC 3.44 mil/uL (4.50-6.00); RDW-CV 16.7 % (10.5-14.5); WBC 4.4 thou/uL (4.0-11.0)
[2019-08-08 05:43] LABS: CALCIUM 9.6 mg/dL (8.5-10.1); CREATININE 1.3 mg/dL (0.6-1.3); POTASSIUM 3.9 mmol/L (3.5-5.1)
[2019-08-08 07:40] VITALS: BP 138/64
--- NOTE | 2019-08-08 09:32 | EEG ---
[address] [address] EEG STUDY REPORT Name: JINNY BUTLER Room: [address] IN M.R.#: [id number] Admission: 08/05/19 Attend Phys: Chente Escobar Discharge: Date of : 55 Report #: [id number] THIS REPORT FOR: //name// CC: Taylor Church DATE OF SERVICE: 08/05/2019 This patient did not cooperate with the test. A lot of his EEG is masked by a lot of artifact. Background activity goes to about 7-8 Hz and 30 microvolt. It is difficult to confirm that. Photic stimulation is unremarkable. No active epileptiform activity was noticed. IMPRESSION: Suboptimal EEG because the patient will not cooperate. I did not see any active epileptiform activity, but EEG is intermixed with theta range slowing on both sides. Thank you very much for this referral. <ELECTRONICALLY SIGNED> By: Hayden Painter MD 08/08/19 0932 1630 [id number] Painter MD /nt
--- NOTE | 2019-08-08 09:32 | CON ---
[address] [address] CONSULTATION Name: JINNY BUTLER Room: [address] IN M.R.#: [id number] Admission: 08/05/19 Attend Phys: Chente Escobar Discharge: Date of : 55 Report #: [id number] THIS REPORT FOR: //name// CC: Taylor Church DATE OF SERVICE: 08/05/2019 HISTORY OF PRESENT ILLNESS: This is a 64-year-old male patient who is unable to provide any history at all. I called the patient's significant others and she does not appear to be very oriented either and hence the history is very difficult. This patient is confused and talking irrelevantly when I saw him. He will not provide any history. REVIEW OF SYSTEMS: Indicate acute renal insufficiency, dizziness, multiple psychiatric problems, myocardial infarctions in the past. He had coronary artery disease. He had a bipolar disorder. He has history of tobacco abuse. He does not tell me anything about his alcohol history. Review of systems is negative for any stroke according to him, he wants to know if he had a stroke now, does have a history of high cholesterol, cataract surgery, benign prostatic hypertrophy, GI bleed, insomnia. This was a relevant 14-point review of system, which was carried out. PAST MEDICAL HISTORY: Positive for multiple psychiatric problems. FAMILY HISTORY: Negative for any early age stroke. SOCIAL HISTORY: He smokes. PHYSICAL EXAMINATION: The patient's examination indicates he is alert. He can tell me what month it is. He can tell me what date it is. He does not cooperate with examinations. Cranial nerve examination 2-12 was attempted. The patient who was not able to cooperate. I could not look at the fundus. There is no meningeal sign. There is no carotid bruit. His respiration looks intact. His blood pressure is 150/90, respiration is 18, pulse is 81. LABORATORY DATA: Indicated a normal white count. GFR is low at 38. His B12 and TSH is normal. IMPRESSION: Altered mental status of unknown etiology. We tried to do EEG on him and he did not cooperate. His MRI is pending. I will give him thiamine because of [place] [address] CONSULTATION Name: JINNY BUTLER Room: [address] IN [facility]#: [id number] Admission: 08/05/19 Attend Phys: Chente Escobar Discharge: Date of : 55 Report #: [id number] We will await the MRI. I tried to discuss with the patient and significant other. I am not sure either one of them understand the things very well. <ELECTRONICALLY SIGNED> By: Hayden Painter MD 08/08/19 0932 1819 [id number] Painter MD /nt
--- NOTE | 2019-08-08 15:20 | NUR ---
LEFT AMA. PATIENT NOTED ANXIOUS AND ANTSY THRU SHIFT. ATTEMPT TO ELOPE EARLY THIS AFTERNOON WITH [address], SECURITY NOTIFIED AND ESCORTED PATIENT BACK TO . PATIENT VERBALIZES WANTING TO LEAVE AMA. PATIENT INFORMED OF AMA RISKS. DR NOTIFIED, CASE MANAGEMENT NOTIFIED OF PATIENT INTENT. DR IN TO SEE PATIENT THIS AM, CASE MANAGEMENT INFORMS PATIENT THAT DISCHARGE PLANNING FOR HOME HEALTH SERVICES IS BEING DONE. PATIENT ENC TO STAY. PATIENT SIGNS AMA FORM, STATES CONTACTING CAB COMPANY. IVs X2 DISCONTINUED, COTTON BALLS/TAPE APPLIED TO SITES, CATH TIPS INTACT. SECURITY ESCORTS PATIENT OFF UNIT, PERSONAL BELONINGS WITH PATIENT AT TIME OF LEAVING UNIT. ALERT AND ORIENTED. VERY [place]. GAIT NOTED STEADY AND INDEP. ~TJRN
--- NOTE | 2019-08-08 15:40 | NUR ---
Pt chose to leave AMA because he no longer wanted to wait for doctor's orders. SW faxed pt current [facility] to inform of pt dc home and CM from [facility] is aware of pt dc home today.
== END 2019-08-08 15:20 | disposition left against medical advice (07) | DRG 91 ==
LOC: M.ERS 21:20 → M.ICU 08-05 00:55 → M.TBA-ER 08-05 00:55 → M.ICU 08-05 02:06 → M.3W 08-06 19:43
PROVIDERS: Emergency Medicine; Family Medicine; Internal Medicine; ADMIT Internal Medicine
DX: G92 Toxic encephalopathy (principal); N17.0 Acute kidney failure with tubular necrosis; E87.2 Acidosis; F31.9 Bipolar disorder, unspecified; E78.00 Pure hypercholesterolemia, unspecified; K21.9 Gastro-esophageal reflux disease without esophagitis; I25.10 Atherosclerotic heart disease of native coronary artery without angina pectoris; I73.9 Peripheral vascular disease, unspecified; N40.0 Benign prostatic hyperplasia without lower urinary tract symptoms; N18.3 Chronic kidney disease, stage 3 (moderate); G47.00 Insomnia, unspecified; E16.2 Hypoglycemia, unspecified; E86.9 Volume depletion, unspecified; F17.210 Nicotine dependence, cigarettes, uncomplicated; T39.395A Adverse effect of other nonsteroidal anti-inflammatory drugs [NSAID], initial encounter; H70.91 Unspecified mastoiditis, right ear; F03.90 Unspecified dementia, unspecified severity, without behavioral disturbance, psychotic disturbance, mood disturbance, and anxiety; I12.9 Hypertensive chronic kidney disease with stage 1 through stage 4 chronic kidney disease, or unspecified chronic kidney disease; Z53.21 Procedure and treatment not carried out due to patient leaving prior to being seen by health care provider; Z87.11 Personal history of peptic ulcer disease; Z88.8 Allergy status to other drugs, medicaments and biological substances; Y92.89 Other specified places as the place of occurrence of the external cause; Z79.899 Other long term (current) drug therapy

== ENCOUNTER 2019-08-10 11:15 | Inpatient (IN) | payer MEDICARE, MEDICAID ==
[2019-08-10] VITALS (7 sets, daily range): BP systolic 90–145; BP diastolic 55–83
[~2019-08-10] VITALS: Ht 182.9 cm; Wt 75.1 kg
--- NOTE | 2019-08-10 11:40 | NUR ---
REPORT GIVEN TO THIS NURSE BY MATTY MACKEY. THIS NURSE TO ASSUME PT CARE AT THIS TIME.
[2019-08-10 11:49] LABS: HEMATOCRIT 33.1 % (42.0-52.0); HEMOGLOBIN 11.1 gm/dL (14.0-18.0); MCH 30.8 pg (26.0-34.0); MCHC 33.5 g/dL (28.0-37.0); MCV 91.9 fL (80.0-100.0); MPV 8.2 fl. (7.2-11.1); NUCLEATED RBCS 0 /100WBC; PLATELET COUNT* 229 thou/uL (150-400); RDW-CV 16.8 % (10.5-14.5); WBC 5.5 thou/uL (4.0-11.0)
[2019-08-10 11:57] LABS: ANION GAP 13 mmol/L (7-16); BUN 49 mg/dL (7-18); CHLORIDE 106 mmol/L (98-107); CO2 18 mmol/L (21-32); CREATININE 2.2 mg/dL (0.6-1.3); GLUCOSE 61 mg/dL (70-99); POTASSIUM 4.3 mmol/L (3.5-5.1); SODIUM 137 mmol/L (136-145)
[2019-08-10 11:59] LABS: APTT 30.3 Seconds (25.0-31.3); PROTIME 10.7 Seconds (9.20-11.50)
--- NOTE | 2019-08-10 12:05 | NUR ---
REPORT GIVEN TO MATTY LAINEZ WHO IS TO ASSUME PT CARE AT THIS TIME.
[2019-08-10 12:12] LABS: ALBUMIN 3.1 g/dL (3.4-5.0); ALKALINE PHOSPHATASE 102 U/L (46-116); CK-MB MASS 1.8 ng/mL (<0.5-3.6); NT-PRO BRAIN NAT PEPTIDE 294 pg/mL (<300); SGOT 29 U/L (15-37); SGPT 39 U/L (30-65); TOTAL BILIRUBIN 0.2 mg/dL (<0.1-1.0); TOTAL PROTEIN 6.8 g/dL (6.4-8.2); TROPONIN-I LEVEL <0.06 ng/mL (<0.06)
[2019-08-10 12:28] LABS: ABSOLUTE EOSINOPHILS 0.3 thou/uL (0.0-0.7); ABSOLUTE LYMPHOCYTES 1.5 thou/uL (0.8-5.3); ABSOLUTE MONOCYTES 0.4 thou/uL (0.0-1.2); ABSOLUTE NEUTROPHILS 3.3 thou/uL (1.6-8.1); PLATELET ESTIMATE ADEQUATE
[2019-08-10 12:29] LABS: ANISOCYTOSIS 1+
--- NOTE | 2019-08-10 12:45 | NUR ---
THIS NURSE RECEIVED REPORT FROM MATTY LAINEZ. THIS NURSE TO REASSUME PT CARE.
--- NOTE | 2019-08-10 13:00 | NUR ---
PT LAYING IN BED, DROWSY. SLURRED SLOWED SPEECH NOTED. PT REMAINS CONFUSED. BLOOD GLUCOSE CHECKED, RESULTS 46. DR. SHANE AWARE. VERBAL ORDER FOR AMP OF D50 TO BE ADMINISTERED.
--- NOTE | 2019-08-10 14:07 | NUR ---
PRIMARY NURSE ON FLOOR, MATTY HOPKINS, UNABLE TO TAKE REPORT DUE TO BEING AT LUNCH. THIS NURSE TO TAKE PT UP TO ROOM AND GIVEN BEDSIDE REPORT.
--- NOTE | 2019-08-10 14:27 | NUR ---
BEDSIDE REPORT GIVEN TO MATTY HOPKINS.
--- NOTE | 2019-08-10 15:00 | NUR ---
PATIENT TO ROOM 210 VIA ED GURNEY AND STAFF. TRANSFER FROM GURNEY TO BED WITH ASSIST OF 2. ORIENTED TO SELF, SPEECH INCOHERENT. BED ALARM IN USE. CALL LIGHT IN REACH. FREQUENT CHECKS FOR PATIENT UNABLE TO EXPRESS NEEDS.
--- NOTE | 2019-08-10 16:30 | NUR ---
PATIENT UNABLE TO URINATE MORE THAN 100 MLS X3 SINCE ARRIVAL. PAGED PHYSICIAN FOR URINARY CATHETER ORDER AFTER PATIENT BLADDER SCAN SHOWED >500 MLS RETAINED. CATHETER INSERTED, 600 MLS OUT, CONCENTRATED YELLOW URINE. CATHETER TO DEPENDENT DRNG.
--- NOTE | 2019-08-10 17:00 | NUR ---
PATIENT WITH LOW BLOOD SUGAR, GIVEN GLUCOSE GEL, APPLE JUICE. PHYSICIAN INFORMED. RECHECK SHOWS GLUCOSE AT 50. APPLE JUICE GIVEN. IV FLUIDS INFUSING ORDERED. PATIENT ASYMPTOMATIC. COMMUNICATING BETTER, REDIRECTABLE.
[2019-08-10 17:56] LABS: AMMONIA < 10 umol/L (11-32); MAGNESIUM 1.6 mg/dL (1.8-2.4)
--- NOTE | 2019-08-10 18:45 | NUR ---
RECEIVED ORDER FROM DR. MANSFIELD TO GIVE D50 PER HYPOGLYCEMIA PROTOCOL. PATIENT EATING MEAL TRAY. RECHECK REVEALS GLUCOSE 118. PATIENT REQUESTS TO CALL SO, ASSISTED PATIENT. PATIENT CONTINUES TO IMPROVE WITH COMMUNICATING IDEAS AND RELATING RECENT PAST HOSPITAL EVENTS.
[2019-08-10 21:31] LABS: URINE BILIRUBIN NEGATIVE (Negative); URINE BLOOD NEGATIVE (Negative); URINE CLARITY CLEAR; URINE COLOR YELLOW; URINE GLUCOSE-RANDOM TRACE (Negative); URINE KETONES NEGATIVE (Negative); URINE LEUKOCYTES-REFLEX NEGATIVE (Negative); URINE NITRITE-REFLEX NEGATIVE (Negative); URINE PROTEIN NEGATIVE (Negative); URINE SPECIFIC GRAVITY 1.015 (1.005-1.030); URINE UROBILINOGEN 0.2 E.U./dl (0.2-1.0)
[2019-08-10 22:53] LABS: AMP/METHAMP Negative (Negative); BARBITURATES Negative (Negative); BENZODIAZEPINES Negative (Negative); COCAINE Negative (Negative); METHADONE Negative (Negative); OPIATES Negative (Negative); PCP Negative (Negative); THC Negative (Negative)
--- NOTE | 2019-08-11 04:25 | NUR ---
ASSUMED PATIENT CARE AT 1900. PATIENT ALERT TO SELF. BLOOD SUGAR UP TO 79 AND PATIENT REQUESTED BOX LUNCH. BOX LUNCH GIVEN AND PATIENT ATE 100%. IV IN PLACE AND PATENT TO FLUIDS INFUSING. CATHETER IN PLACE. NO COMPLAINTS OF PAIN OR DISCOMFORT NOTED. COMPLIANT WITH ALL CARES. MARINE ENGINEERING CONSULTANT AND HOURLY ROUNDING COMPLETED CHARTED.
[2019-08-11 04:45] VITALS: BP 100/64
[2019-08-11 04:53] LABS: CALCIUM 8.8 mg/dL (8.5-10.1); CREATININE 1.5 mg/dL (0.6-1.3); MAGNESIUM 1.5 mg/dL (1.8-2.4); POTASSIUM 4.5 mmol/L (3.5-5.1)
--- NOTE | 2019-08-11 08:30 | NUR ---
PT OFF UNIT TO U/S.
[2019-08-11 10:11] VITALS: BP 124/64
--- NOTE | 2019-08-11 14:56 | NUR ---
MET WITH PT TO DISCUSS HOME SITUATION/DC PLANNING. PT JUST LEFT AMA FROM HOSPITAL STAY LAST WEEK. PT AGREEABLE TO CARE NOW AND NOT LEAVE, STATED HE 'NEEDED A CIGARETTE'. OFFERED TO GET ORDER FOR NICOTINE PATCH AND HE DECLINED. PT STATES HE TRIES TO BE COMPLIANT BUT HASN'T BEEN FOLLOWING HIS FLUID RESTRICTION AT HOME ALL THE TIME. S/O SOPHY AGREED WITH THAT, SHE STATES SHE TRIES TO GET HIM TO COMPLY. STATES OTHERWISE PT IS COMPLIANT. USES NO EQUIPMENT. HAS HH THRU [facility] AND WANTS TO CONTINUE WITH THEM. SPOE WITH CAROLYN ROCKWELL/[facility] INSTRUMENT REPAIR TECHNICIAN. SHE FOLLOWS PT AT HOME, ASSISTS WITH GETTING RESOURCES AND TAKES PT TO APPTS. SHE CANNOT PROVIDE TRANSPORT HOME THO. SHE STATED PT HAS BEEN DOING WELL AT HOME, BUT WONDERED IF HE HAS DIABETES. PT HAS HAD LOW BS, DISCUSSED WITH DR RITA Chen/U AT OR WITH ENDOCRINOLGIST. WILL FOLLOW
[2019-08-11 16:00] VITALS: BP 142/74
--- NOTE | 2019-08-11 16:12 | NUR ---
CM attempted to schedule an endo appt for Pt at [facility], per message, all voicemails left after 3pm will be returned the next day. CM left VM.
--- NOTE | 2019-08-11 16:19 | EKG ---
[place] [address] ELECTROCARDIOGRAM REPORT Name: JINNY BUTLER Room: [address] ADM IN M.R.#: [id number] Admission: 08/10/19 Attend Phys: Aly Simms Discharge: Date of : 55 Report #: [id number] THIS REPORT FOR: //name// [facility] ED Test Date: 2019-08-10 Test Time: 11:32:16 Pat Name: JINNY BUTLER Department: Room: [facility] Gender: M Syrup Mixer: : 1955 Requested By: Ezra Espinal Order Number: [id number] MD: Keny Luciano Measurements Intervals [place] Rate: 84 P: 63 LA: 172 QRS: 56 QRSD: 145 T: 20 QT: 406 QTc: 480 Interpretive Statements Sinus rhythm Probable left atrial enlargement Right bundle branch block Probable anterolateral infarct, old Compared to ECG 08/04/2019 21:38:55 Myocardial infarct finding now present Electronically Signed On 08-11-2019 16:18:56 CDT by Keny Luciano [email or web address] <ELECTRONICALLY SIGNED> By: Keny Luciano MD, [facility] 08/11/19 1618 1132 1132 Keny Luciano MD, [facility] /EPI
--- NOTE | 2019-08-11 18:15 | NUR ---
PT UP TO THE CHAIR TODAY AND GAVE PT GIVEN BATH, LINENS CHANGED. PT HAS MOMENTS OF CONFUSION BUT WAS ABLE TO REORIENT WELL. WILL CONTINUE TO ASSESS.
[2019-08-11 20:31] VITALS: BP 129/60
[2019-08-11 23:45] VITALS: BP 144/77
[2019-08-12 04:00] VITALS: BP 153/78
[2019-08-12 05:15] LABS: HEMATOCRIT 29.5 % (42.0-52.0); MCH 30.7 pg (26.0-34.0); MCV 90.4 fL (80.0-100.0); MPV 7.6 fl. (7.2-11.1); RBC 3.26 mil/uL (4.50-6.00); RDW-CV 16.3 % (10.5-14.5); WBC 5.2 thou/uL (4.0-11.0)
[2019-08-12 05:16] LABS: CALCIUM 9.2 mg/dL (8.5-10.1); CREATININE 1.2 mg/dL (0.6-1.3); POTASSIUM 4.7 mmol/L (3.5-5.1)
--- NOTE | 2019-08-12 05:17 | NUR ---
ASSUMED PATIENT CARE AT 1900. PATIENT ALERT AND ORIENTED TIMES FOUR. REQUESTED SHOWER. TOO UNSTEADY ON HIS FEET FOR THIS TO BE SAFE, SELF CARE BED BATH GIVEN. CARDIAC MONITORING IN PLACE, PACING AT NSR. NO COMPLAINTS OF PAIN OR DISCOMFORT NOTED. CIVIL DESIGN SPECIALIST AND HOURLY ROUNDING COMPLETED DOCUMENTED.
[2019-08-12 08:00] VITALS: BP 158/71
--- NOTE | 2019-08-12 08:30 | NUR ---
ASSUMED PT CARE AROUND 0700. PT NOTED TO BE RESTING IN BED WITH BOTH EYES CLOSED. VSS, SR ON THE RECRUITMENT INTERN, PT APPEARS REFUSED BRKFST. WILL CONT HOURLY ROUNDS THIS SHIFT.
[2019-08-12 10:18] VITALS: BP 153/78
--- NOTE | 2019-08-12 10:25 | NUR ---
CM scheduled an endo appt for Pt on 09/01/[address] Alejandro Clarke with [facility], [address] [facility] [address], LSMO. Appt put into dc summary.
[2019-08-12 11:56] VITALS: BP 153/78
[2019-08-12 12:12] VITALS: BP 155/83
[2019-08-12 15:26] VITALS: BP 153/78
--- NOTE | 2019-08-12 19:42 | NUR ---
PT WAITING TO FOR CAB TO BE DISCHARGE TO HOME HEALTH WITH HOME HEALTH SERVICES ARRANGED. PT WAS EDUCATED ON THE IMPORTANCE OF EATING MEALS TO KEEP BS STABLE. PT COMMUNICATED UNDERSTANDING. PT MAINTAINED SR ON THE MONITOR. TELE MONITOR ET IV REMOVED. PT WAITING FOR CAB.
[2019-08-13] MEDS ORDERED: OLANZAPINE15 MG PO (10:17)
[2019-08-13] MEDS ORDERED: BUPROPION HCL150 M1 PO (10:17)
[2019-08-13] MEDS ORDERED: NEURONTIN 400400 M1 PO (10:17)
[2019-08-13] MEDS ORDERED: ZANTAC 150MG T150 MG PO (10:17)
[2019-08-13] MEDS ORDERED: DIVALPROEX SOD500 M1 PO (10:19)
[2019-08-13] MEDS ORDERED: VENLAFAXINE HC150 M1 PO (10:19)
[2019-08-13] MEDS ORDERED: TOLTERODINE TART4 MG PO (10:20)
[2019-08-13] MEDS ORDERED: RANOLAZINE ER1000 MG PO (10:20)
[2019-08-13] MEDS ORDERED: VASCEPA1 GM PO (10:20)
[2019-08-15 10:14] LABS: C-PEPTIDE 10.4 ng/mL (1.1-4.4); INSULIN 18.4 uIU/mL (2.6-24.9); PROINSULIN 7.5 pmol/L (0.0-10.0)
== END 2019-08-12 21:50 | disposition home health service (06) | DRG 682 ==
LOC: M.ERS 11:15 → M.2W 12:32 → M.TBA-ER 12:32 → M.2W 14:40
PROVIDERS: Emergency Medicine Emergency Medical Services; ADMIT Family Medicine
PROC: 3E0234Z Introduction of Serum, Toxoid and Vaccine into Muscle, Percutaneous Approach (ICD-10-PCS; principal; 2019-08-12)
DX: N17.9 Acute kidney failure, unspecified (principal); G93.41 Metabolic encephalopathy; F31.9 Bipolar disorder, unspecified; E78.00 Pure hypercholesterolemia, unspecified; K21.9 Gastro-esophageal reflux disease without esophagitis; I25.10 Atherosclerotic heart disease of native coronary artery without angina pectoris; I73.9 Peripheral vascular disease, unspecified; N40.0 Benign prostatic hyperplasia without lower urinary tract symptoms; N18.3 Chronic kidney disease, stage 3 (moderate); G47.00 Insomnia, unspecified; I12.9 Hypertensive chronic kidney disease with stage 1 through stage 4 chronic kidney disease, or unspecified chronic kidney disease; F17.210 Nicotine dependence, cigarettes, uncomplicated; E78.5 Hyperlipidemia, unspecified; E16.2 Hypoglycemia, unspecified; Z23 Encounter for immunization; Z87.11 Personal history of peptic ulcer disease; Z98.49 Cataract extraction status, unspecified eye; Z79.899 Other long term (current) drug therapy; Z79.82 Long term (current) use of aspirin; Z88.8 Allergy status to other drugs, medicaments and biological substances

== ENCOUNTER 2019-08-13 09:55 | Inpatient (IN) | payer MEDICARE, MEDICAID ==
[2019-08-13] VITALS (13 sets, daily range): BP systolic 105–138; BP diastolic 42–79
[2019-08-13] MEDS ORDERED: BUPROPION HCL150 M1 PO (10:17)
[2019-08-13] MEDS ORDERED: NEURONTIN 400400 M1 PO (10:17)
[2019-08-13] MEDS ORDERED: ZANTAC 150MG T150 MG PO (10:17)
[2019-08-13] MEDS ORDERED: OLANZAPINE15 MG PO (10:17)
[2019-08-13] MEDS ORDERED: DIVALPROEX SOD500 M1 PO (10:19)
[2019-08-13] MEDS ORDERED: VENLAFAXINE HC150 M1 PO (10:19)
[2019-08-13] MEDS ORDERED: TOLTERODINE TART4 MG PO (10:20)
[2019-08-13] MEDS ORDERED: RANOLAZINE ER1000 MG PO (10:20)
[2019-08-13] MEDS ORDERED: VASCEPA1 GM PO (10:20)
[2019-08-13 10:52] LABS: BE -5.1 mmol/L (-2 to +3); PCO2 32.6 mmHg (35.0-45.0); PO2 77.6 mmHg (75.0-100.0); pH 7.387 (7.340-7.450)
[2019-08-13 11:03] LABS: ABSOLUTE EOSINOPHILS 0.1 thou/uL (0.0-0.7); ABSOLUTE LYMPHOCYTES 0.8 thou/uL (0.8-5.3); ABSOLUTE NEUTROPHILS 4.1 thou/uL (1.6-8.1); BASOPHILS 0.5 %; EOSINOPHILS 2.5 %; HEMATOCRIT 30.4 % (42.0-52.0); HEMOGLOBIN 10.3 gm/dL (14.0-18.0); LYMPHOCYTES 13.2 %; MCH 30.7 pg (26.0-34.0); MCHC 33.8 g/dL (28.0-37.0); MCV 90.9 fL (80.0-100.0); MONOCYTES 16.2 %; MPV 7.7 fl. (7.2-11.1); NUCLEATED RBCS 0 /100WBC; PLATELET COUNT* 212 thou/uL (150-400); POLYS 67.6 %; RBC 3.35 mil/uL (4.50-6.00); RDW-CV 16.4 % (10.5-14.5)
[2019-08-13 11:11] LABS: INR 1.1; PROTIME 10.9 Seconds (9.20-11.50)
[2019-08-13 11:15] LABS: ACETAMINOPHEN < 2 ug/mL (10-30); ALCOHOL < 10 mg/dL (<10); SALICYLATE 2.7 mg/dL (2.8-20.0)
[2019-08-13 11:29] LABS: ALBUMIN 2.9 g/dL (3.4-5.0); CREATININE 1.8 mg/dL (0.6-1.3); POTASSIUM 4.8 mmol/L (3.5-5.1); TOTAL BILIRUBIN 0.4 mg/dL (<0.1-1.0); TOTAL PROTEIN 6.1 g/dL (6.4-8.2)
[2019-08-13 11:34] LABS: CALCIUM 9.2 mg/dL (8.5-10.1)
--- NOTE | 2019-08-13 12:24 | NUR ---
WAS CALLED TO ER TO EVAL FOR POSSIBLE SNF. PT SOMNOLENT AND DIFFICULT TO AWAKEN, MUMBLING ONLY. DISCUSESSED WITH DR LEZAMA, PT WAS DC'D YESTERDAY AND WAS A/O. PT TO BE ADMITTED. CALLED AND SPOKE WITH SOPHY/BETO. SHE STATED PT HAD 2 FALLS AT HOME AFTER DC YESTERDAY AND SHE HAD TO CALL 911. SAID THE PARAMEDICS STATED HIS BP WAS LOW AND PER NURSE REPORT IN ER, PT HAD HIS PILLS OUT. SOPHY NOT SURE HE TOOK ANY. SOPHY STATED HIS [facility] NURSE SETS UP MEDS FOR HIM AND IS WORKING ON GETTING BLISTER PACKS FOR HIM TO USE THRU [facility]. TALKED WITH SOPHY ABOUT POSSIBLE SNF PLACEMENT, SHE IS AGREEMENT WITH WHAT PT NEEDS. CM TO FOLLOW AND ASSIST
--- NOTE | 2019-08-13 16:23 | EKG ---
[place] [address] ELECTROCARDIOGRAM REPORT Name: BUTLERJINNY Room: [address] ADM IN M.R.#: [id number] Admission: 08/13/19 Attend Phys: Chente Escobar Discharge: Date of : 55 Report #: [id number] THIS REPORT FOR: //name// [facility] ED Test Date: 2019-08-13 Test Time: 11:09:20 Pat Name: JINNY BUTLER Department: Room: [facility] Gender: M Bullet Swaging Machine Adjuster: : 1955 Requested By: Koko Melendez Order Number: [id number] MD: Keny Luciano Measurements Intervals [place] Rate: 82 P: 66 SC: 166 QRS: 60 QRSD: 137 T: 26 QT: 444 QTc: 519 Interpretive Statements Sinus rhythm Right bundle branch block Compared to ECG 08/10/2019 11:32:16 Myocardial infarct finding no longer present Electronically Signed On 08-13-2019 16:23:08 CDT by Keny Luciano [email or web address] <ELECTRONICALLY SIGNED> By: Keny Luciano MD, [facility] 08/13/19 1623 1109 1109 Keny Luciano MD, [facility] /EPI
[2019-08-13 16:35] LABS: URINE BILIRUBIN NEGATIVE (Negative); URINE BLOOD NEGATIVE (Negative); URINE CLARITY CLEAR; URINE COLOR YELLOW; URINE GLUCOSE-RANDOM NEGATIVE (Negative); URINE KETONES NEGATIVE (Negative); URINE LEUKOCYTES-REFLEX NEGATIVE (Negative); URINE NITRITE-REFLEX NEGATIVE (Negative); URINE PROTEIN NEGATIVE (Negative); URINE SPECIFIC GRAVITY <= 1.005 (1.005-1.030); URINE UROBILINOGEN 0.2 E.U./dl (0.2-1.0)
[2019-08-13 16:42] LABS: AMP/METHAMP Negative (Negative); BARBITURATES Negative (Negative); BENZODIAZEPINES Negative (Negative); COCAINE Negative (Negative); METHADONE Negative (Negative); OPIATES Negative (Negative); PCP Negative (Negative); THC Negative (Negative)
--- NOTE | 2019-08-13 19:43 | NUR ---
PT RECEIVED FROM ER AT 1325, ALERT, ORIENTED TO SELF AND CONFUSED MOST OF THE TIMES. TELE STATUS. VSS. VOIDING PER URINAL BUT EPISODE OF INCONTINENCE ONCE. MAKING MESS OF FOOD AROUND THE ROOM. REORIENTATION PROVIDED. NO VISITOR AT THE BED SIDE. CM CONSULT PLACED FOR HIS PLACEMENT AFTER DISCHARGE.
[2019-08-14] VITALS (52 sets, daily range): BP systolic 77–194; BP diastolic 38–115
[2019-08-14 03:42] LABS: ABSOLUTE EOSINOPHILS 0.2 thou/uL (0.0-0.7); ABSOLUTE LYMPHOCYTES 1.3 thou/uL (0.8-5.3); ABSOLUTE MONOCYTES 0.8 thou/uL (0.0-1.2); ABSOLUTE NEUTROPHILS 2.9 thou/uL (1.6-8.1); BASOPHILS 0.4 %; EOSINOPHILS 4.5 %; HEMATOCRIT 30.2 % (42.0-52.0); LYMPHOCYTES 24.8 %; MCH 30.1 pg (26.0-34.0); MCHC 33.1 g/dL (28.0-37.0); MCV 90.9 fL (80.0-100.0); MPV 7.1 fl. (7.2-11.1); NUCLEATED RBCS 0 /100WBC; PLATELET COUNT* 231 thou/uL (150-400); POLYS 55.3 %; RBC 3.32 mil/uL (4.50-6.00); RDW-CV 16.2 % (10.5-14.5); WBC 5.2 thou/uL (4.0-11.0)
[2019-08-14 03:54] LABS: ALBUMIN 2.6 g/dL (3.4-5.0); CALCIUM 9.7 mg/dL (8.5-10.1); CREATININE 1.4 mg/dL (0.6-1.3); POTASSIUM 4.7 mmol/L (3.5-5.1); TOTAL BILIRUBIN 0.3 mg/dL (<0.1-1.0); TOTAL PROTEIN 6.1 g/dL (6.4-8.2)
--- NOTE | 2019-08-14 06:37 | NUR ---
ASSESSMENT CHARTED. PATIENT MORE CONFUSED SHIFT PROGRESSES. VSS. BP DOES DROP TO 80S/50S WHEN SLEEPING. USING URINAL AT BEDSIDE. PATIENT MAKES INAPPROPRIATE STATEMENTS FOR THE CURRENT SITUATION. REFUSED TO TAKE MORNING MEDICATION. REMAINS TELE STATUS. [facility]
--- NOTE | 2019-08-14 10:53 | NUR ---
ICU Rounds: Tele status. Tele psych consult and EEG scheduled for today. Pt A&O. Known to this CM from previous hospital stay. Pt just dc [facility] home with [facility] on 08/12. Pt has a CM through [employer], that checks on him daily for med management. Pt resides at home with his S/o. Pt may need skilled at dc, waiting therapy evals. No DME. Following.
--- NOTE | 2019-08-14 13:16 | 2DMMODE ---
[place] [address] 2 D/M-MODE ECHOCARDIOGRAM Name: JINNY BUTLER Room: [address] ADM IN [facility]#: [id number] Admission: 08/13/19 Attend Phys: Darrion Church Discharge: Date of : 55 Date of Service: 08/14/19 1316 Report #: [id number] THIS REPORT FOR: //name// APPROVED REPORT Study performed: 08/14/2019 10:26:33 EXAM: Comprehensive 2D, Doppler, and color-flow Echocardiogram Patient Location: In-Patient Room #: [facility] Status: routine BSA: 2.01 HR: 85 bpm BP: 129/68 mmHg Rhythm: NSR Other Information Study Quality: Good Indications AMS, weakness 2D Dimensions IVSd: 13.42 (7-11mm) LVOT Diam: 20.83 (18-24mm) LVDd: 43.64 mm PWd: 10.58 (7-11mm) Ascending Ao: 32.53 (22-36mm) LVDs: 24.56 (25-40mm) Aortic Root: 30.19 mm Volumes Left Atrial Volume (Systole) LA ESV Index: 25.80 mL/m2 Aortic Valve AoV Peak Heraclio.: 1.22 m/s AO Peak Gr.: 5.94 mmHg LVOT Max P.07 mmHg AO Mean Gr.: 2.90 mmHg LVOT Mean P.44 mmHg LVOT Max V: 0.88 m/s AO V2 VTI: 21.47 cm LVOT Mean V: 0.54 m/s FARIBA (VTI): 2.91 cm2 LVOT V1 VTI: 18.31 cm Mitral Valve E/A Ratio: 0.87 MV Decel. Time: 188.55 ms MV E Max Heraclio.: 0.83 m/[place] [address] 2 D/M-MODE ECHOCARDIOGRAM Name: BUTLERJINNY R Room: [address] IN [facility]#: [id number] Admission: 08/13/19 Attend Phys: Darrion Church Discharge: Date of : 55 Date of Service: 08/14/19 1316 Report #: [id number] MV PHT: 54.68 ms MVA (PHT): 4.02 cm2 TDI E/Lateral E': 8.30 E/Medial E': 7.55 Medial E' Heraclio.: 0.11 m/s Lateral E' Heraclio.: 0.10 m/s Pulmonary Valve PV Peak Heraclio.: 0.94 m/s PV Peak Gr.: 3.50 mmHg Left Ventricle The left ventricle is normal size. There is normal LV segmental wall motion. There is normal left ventricular wall thickness. Left ventricular systolic function is normal. LVEF is 55-60%. Grade I - abnormal relaxation pattern. Right Ventricle The right ventricle is normal size. The right ventricular systolic function is normal. Atria The left atrium size is normal. The right atrium size is normal. Aortic Valve The aortic valve is normal in structure. No aortic regurgitation is present. There is no aortic valvular stenosis. Mitral Valve The mitral valve is normal in structure. Trace mitral regurgitation. No evidence of mitral valve stenosis. Tricuspid Valve The tricuspid valve is normal in structure. Trace tricuspid regurgitation. Pulmonic Valve The pulmonary valve is normal in structure. There is no pulmonic valvular regurgitation. Great Vessels The aortic root is normal in size. IVC is normal in size and collapses >50% with [place] [address] 2 D/M-MODE ECHOCARDIOGRAM Name: JINNY BUTLER Monty Room: [address]#: [id number] Admission: 08/13/19 Attend Phys: Darrion Church Discharge: Date of : 55 Date of Service: 08/14/19 1316 Report #: [id number] There is no pericardial effusion. <Conclusion> The left ventricle is normal size. There is normal left ventricular wall thickness. Left ventricular systolic function is normal. LVEF is 55-60%. Grade I - abnormal relaxation pattern. Trace mitral regurgitation. Trace tricuspid regurgitation. IVC is normal in size and collapses >50% with inspiration. <ELECTRONICALLY SIGNED> By: Alfonso Daniel MD, FACC 08/14/191315 15 15 Alfonso Daniel MD, FACC /INF
--- NOTE | 2019-08-14 15:01 | NUR ---
This telegraphic typewriter repairer assumed care of pt after receiving shift report at 0700. Pt progressed toward goals and was downgraded to teley room 226 this nurse gave verbal report to Ling STARR all belongings with pt transported via wheelchair.
--- NOTE | 2019-08-14 18:21 | NUR ---
ASSUSSMED CARE AFTER REPORT FROM ICU NURSE. PT UP TO UNIT APPROX 1450. PT HAD SOME TESTS COMPLETED THIS AFTERNOON. MEDICATIONS GIVEN CHARTED. PT IS WANTING TO GO HOME. PT EDUCATION ABOUT PLAN OF CARE. PT NEEDS REINFORCEMENT. SAFTEY PRECAUTIONS IN PLACE. CALL LIGHT EXPLAINED TO PT NEEDS REENFORCEMENT. PT DOES NOT CALL OUT WHEN NEEDING TO USE BATHROOM, REMINDERS GIVEN. PTS BED ALARM ON. CALL LIGHT WITHIN REACH.
[2019-08-15] VITALS: BP 145/61
[2019-08-15 04:00] VITALS: BP 148/66
--- NOTE | 2019-08-15 05:35 | NUR ---
PT HAS RESTED COMFORTABLY T/O NIGHT WITHOUT COMPLAINTS. PT PROGRESSING TOWARDS GOALS. PT DOES STILL APPEAR TO BE CONFUSED ABOUT ABILITY FOR SELF CARE. NEEDS REDIRECTION. WILL PASS IN REPORT. MEDS GIVEN PER EMAR. CALL LIGHT WITHIN REACH
[2019-08-15 08:53] VITALS: BP 174/89
[2019-08-15] MEDS ORDERED: VENLAFAXINE HCL75 M1 PO (11:13)
[2019-08-15] MEDS ORDERED: PRENATAL PO (11:13)
[2019-08-15] MEDS ORDERED: VITAMIN B-1100 M1 PO (11:13)
[2019-08-15] MEDS ORDERED: OLANZAPINE15 MG PO (11:13)
[2019-08-15] MEDS ORDERED: DEPAKOTE500 MG PO (11:13)
[2019-08-15 11:47] VITALS: BP 174/89
--- NOTE | 2019-08-15 12:20 | NUR ---
DISCUSSED WITH DR BAKER. PT UP AND ABOUT AMBULATING IN [place]. ALERT AND ORIENTED, KETCHIKAN. PT WANTING TO GO HOME. DR BAKER HAS DC'D PT HOME WITH F/U FROM HIS [facility] PROCESS MAINTENANCE TECHNICIAN AND WITH . ASKED THAT PT NOT TAKE MEDS UNTIL SEEN BY HIS NURSE TO SET UP TOMORROW. PT AWARE. ATTEMPTED TO CALL HIS S/O-SOPHY, NO ANSWER. CALLED AND FAXED DC ORDERS TO NORA/YESI AND TO CAROLYN/CLAUDIA. CAROLYN CALLED PT'S HH NURSE AND EXPLAINED CONCERNS WITH MEDS AND ASKED THAT PT BE SEEN TOMORROW. PROVIDED CAB VOUCHER FOR DC AND DISCUSSED WITH MATTY HOPKINS [facility] CAROLYN FAX [phone]
[2019-08-15 12:22] VITALS: BP 177/89
--- NOTE | 2019-08-15 14:00 | NUR ---
PATIENT WITH COMPLETE DC ORDER. REVIEWED DC INSTRUCTIONS AND MEDICATION LIST WITH PATIENT. PATIENT INSTRUCTED TO WORK WITH HOME HEALTH RN FOR MEDICATION MANAGEMENT. SCRIPTS FAXED TO PHARMACY. IV DISCONTINUED AND FAMILY LIFE EDUCATOR REMOVED, CLEANED AND RETURNED TO POCKET FOR ROOM 226. PATIENT IN POSSESSION OF ALL BELONGINGS. CAB VOUCHER RECEIVED FROM . [employer] CALLED AND AWAITING RETURN CALL FOR PATIENT TO TRANSPORT TO HOME BY CAB.
--- NOTE | 2019-08-23 19:25 | CON ---
[address] [address] CONSULTATION Name: JINNY BUTLER Room: [address] IN M.R.#: [id number] Admission: 08/13/19 Attend Phys: Chente Escobar Discharge: 08/15/19 Date of : 55 Report #: [id number] THIS REPORT FOR: //name// CC: Taylor Church DATE OF SERVICE: 08/13/2019 HISTORY OF PRESENT ILLNESS: This is a 64-year-old male patient who was seen by me last time when he was here. He was admitted with altered mental status. I had talked to him and I had talked to his significant others and I can get a very good history. The patient's memory is poor. He was admitted with altered mental status. I reviewed the records and it looks like the significant other cannot take care of him. He thinks his blood sugar goes down, but he does not tell me how much his blood sugar was when it happened. REVIEW OF SYSTEMS: Indicate that this patient has a history of polypharmacy, GI bleed, bipolar disorder, history of hypertension, cardiac stents in the past, cataract surgery, coronary artery disease, syncope, chronic kidney disease and the last time he was here, he had a neurological workup and that indicated that MRI of the brain was mostly unremarkable. His left carotid Doppler was also unremarkable except for mild blocking, but that was done in 2018. I do not know whether there was any focality to his symptoms and does look like it was. He does not know whether his speech was affected. That was his relevant 14-point review of system. PAST MEDICAL HISTORY: Positive for polysubstance abuse as I understand. FAMILY HISTORY: Negative for early age stroke. SOCIAL HISTORY: He says he smokes, but does not drink any alcohol. History is not reliable. PHYSICAL EXAMINATION: Indicates he is alert and responsive. He was able to follow simple commands. He does not know what month it is. He does not know what hospital he is in, but his speech looks intact. Cranial nerve examination 2-12 does not appear to be showing any definite abnormality. Neuromuscular examination is unchanged. No change in cardiac or respiratory status. He is a moderately built individual who does not have any dysmorphic features of eyes, ears and face. His blood pressure is 124/54, respirations 16, pulse is 88, and temperature is 97. He did have a CT scan of the head when he came in and that was reviewed and that showed no definite abnormality. LABORATORY DATA: His lab indicates a normal white [place] [address] CONSULTATION Name: JINNY BUTLER Monty Room: [address] IN M.R.#: [id number] Admission: 08/13/19 Attend Phys: Chente Escobar Discharge: 08/15/19 Date of : 55 Report #: [id number] sodium at 135. His GFR is also 38. IMPRESSION AND PLAN: Clinically, it would appear this patient has dementia. I think he needs placement. We will check his carotid and MRA because of his unexplained altered mental status, but main thing will be monitoring his blood sugar. <ELECTRONICALLY SIGNED> By: Hayden Painter MD 08/23/19 1925 1703 171Hayden Painter MD /nt
== END 2019-08-15 15:30 | disposition home health service (06) | DRG 682 ==
LOC: M.ERS 09:55 → M.ICU 12:18 → M.TBA-ER 12:18 → M.ICU 13:32 → M.2W 08-14 14:58
PROVIDERS: Emergency Medicine; ADMIT Internal Medicine
DX: N17.9 Acute kidney failure, unspecified (principal); G92 Toxic encephalopathy; E16.2 Hypoglycemia, unspecified; F31.9 Bipolar disorder, unspecified; E78.00 Pure hypercholesterolemia, unspecified; K21.9 Gastro-esophageal reflux disease without esophagitis; I25.10 Atherosclerotic heart disease of native coronary artery without angina pectoris; I73.9 Peripheral vascular disease, unspecified; N40.0 Benign prostatic hyperplasia without lower urinary tract symptoms; N18.3 Chronic kidney disease, stage 3 (moderate); G47.00 Insomnia, unspecified; F17.210 Nicotine dependence, cigarettes, uncomplicated; I12.9 Hypertensive chronic kidney disease with stage 1 through stage 4 chronic kidney disease, or unspecified chronic kidney disease; T50.905A Adverse effect of unspecified drugs, medicaments and biological substances, initial encounter; Y92.89 Other specified places as the place of occurrence of the external cause; E78.5 Hyperlipidemia, unspecified; Z23 Encounter for immunization; Z95.5 Presence of coronary angioplasty implant and graft; Z87.11 Personal history of peptic ulcer disease; Z88.8 Allergy status to other drugs, medicaments and biological substances

== ENCOUNTER 2019-12-07 15:03 | Inpatient (IN) | payer OTHER, MEDICAID ==
[~2019-12-07] VITALS: Ht 182.9 cm; Wt 75.7 kg
--- NOTE | ~2019-12-07 | EKG ---
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 : 1955 Requested By: Evans Colbert Order Number: [id number] MD: Measurements Intervals [place] Rate: 99 P: 68 SC: 169 QRS: 78 QRSD: 121 T: 76 QT: 350 QTc: 450 Interpretive Statements Sinus rhythm Ventricular premature complex Aberrant conduction of SV complex(es) Probable left atrial enlargement Nonspecific intraventricular conduction delay Nonspecific repol abnormality, lateral leads Compared to ECG 08/13/2019 11:09:20 Ventricular premature complex(es) now present Aberrant conduction of supraventricular beat(s) now present Intraventricular conduction delay now present Early repolarization now present Right bundle-branch block no longer present [email or web address] By: 07 07 Ivana Heath MD /EPI
[~2019-12-07 15:03] MED LIST changes: +BUPROPION HCL150 M1 PO; +DIVALPROEX SOD500 M1 PO; +NEURONTIN 400400 M1 PO; +PRENATAL PO; +RANOLAZINE ER1000 MG PO; +VASCEPA1 GM PO; +VENLAFAXINE HC150 M1 PO; +VENLAFAXINE HCL75 M1 PO; +VITAMIN B-1100 M1 PO
[2019-12-07 15:05] VITALS: BP 146/89
[2019-12-07] MEDS ORDERED: TOLTERODINE TART4 MG PO (15:16)
[2019-12-07] MEDS ORDERED: LISINOPRIL2.5 MG PO (15:17)
[2019-12-07 15:18] LABS: ABSOLUTE EOSINOPHILS 0.1 thou/uL (0.0-0.7); ABSOLUTE LYMPHOCYTES 1.6 thou/uL (0.8-5.3); ABSOLUTE MONOCYTES 0.5 thou/uL (0.0-1.2); ABSOLUTE NEUTROPHILS 3.7 thou/uL (1.6-8.1); BASOPHILS 0.4 %; EOSINOPHILS 2.4 %; HEMATOCRIT 41.8 % (42.0-52.0); HEMOGLOBIN 14.6 gm/dL (14.0-18.0); LYMPHOCYTES 26.2 %; MCH 30.7 pg (26.0-34.0); MCV 87.6 fL (80.0-100.0); MONOCYTES 8.5 %; MPV 6.8 fl. (7.2-11.1); NUCLEATED RBCS 0 /100WBC; PLATELET COUNT* 287 thou/uL (150-400); POLYS 62.5 %; RBC 4.77 mil/uL (4.50-6.00); RDW-CV 16.5 % (10.5-14.5); WBC 5.9 thou/uL (4.0-11.0)
[2019-12-07 15:29] LABS: CALCIUM 9.1 mg/dL (8.5-10.1)
[2019-12-07 15:31] LABS: PROTIME 10.2 Seconds (9.20-11.50)
[2019-12-07 15:43] LABS: ALBUMIN 3.7 g/dL (3.4-5.0); CK-MB MASS 5.7 ng/mL (<0.5-3.6); MAGNESIUM 1.5 mg/dL (1.8-2.4); TOTAL BILIRUBIN 0.3 mg/dL (<0.1-1.0); TOTAL PROTEIN 7.5 g/dL (6.4-8.2)
[2019-12-07 20:35] VITALS: BP 140/82
[2019-12-07 21:15] VITALS: BP 137/84
[2019-12-07] MEDS ORDERED: VENLAFAXINE HC150 M1 PO (21:40)
[2019-12-07] MEDS ORDERED: VENLAFAXINE HC225 MG PO (21:42)
[2019-12-07] MEDS ORDERED: DEPAKOTE ER500 M1 PO (22:38)
[2019-12-07] MEDS ORDERED: OLANZAPINE10 M1 PO (22:40)
[2019-12-08 00:55] VITALS: BP 126/80
[2019-12-08 04:00] VITALS: BP 140/82
--- NOTE | 2019-12-09 10:53 | CON ---
[address] [address] CONSULTATION Name: JINNY BUTLER Room: [address] IN M.R.#: [id number] Admission: 12/07/19 Attend Phys: Chente Escobar Discharge: 12/08/19 Date of : 55 Report #: [id number] THIS REPORT FOR: //name// cc: Gillian Tamayo Shehryar A. DO ~ THIS REPORT FOR: //name// CC: Dr. Mela BOATENG physician/PCP Darrion Church DATE OF SERVICE: 12/08/2019 CARDIOLOGY CONSULTATION HISTORY OF PRESENT ILLNESS: The patient is a 64-year-old single white male who I was asked to see in the hospital today after he was admitted with chest pain. The patient has an extensive and complicated past medical history. He has up to 6 stents placed in the past. His first was years ago at [facility] on the [place]. He actually states his last stent was about a year ago here at [facility]. He was last admitted here to [facility] in September with confusion. The patient is not very active at this time. Unfortunately, he continues to smoke 3 packs of cigarettes a day. He states he was doing well until last night he had an episode of left arm discomfort. He took a nitroglycerin. It went away, but returned. He took another nitroglycerin. He finally called the ambulance and brought here to [facility] and admitted. He denied any chest pain. He denied any shortness of breath, diaphoresis, nausea. Denied any trauma to the arm. There is no rash. He could move the arm. He denies recent dyspnea on exertion, palpitations or syncope. PAST MEDICAL HISTORY: He has had shoulder surgery, knee surgery, hypertension, hyperlipidemia. MEDICATIONS: On admission includes venlafaxine, divalproex, tolterodine, lisinopril, aspirin, Crestor, Plavix, ranitidine, omeprazole, Imdur, Ranexa, Vascepa. ALLERGIES: HE HAS AN ALLERGY TO SEROQUEL. FAMILY HISTORY: Positive for heart disease. SOCIAL HISTORY: He has been twice in the past. Currently lives with girlfriend. 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 He does smoke marijuana 3 packs of cigarettes a day. No alcohol abuse. REVIEW OF SYSTEMS: He has no history of stroke, asthma, peptic ulcer disease, bleeding, liver disease, kidney disease or cancer. He has chronic back pain. He has manic depressive illness, sees a psychiatrist. Apparently in the past, he was told the both of his femoral arteries were completely occluded. He does have chronic kidney disease. PHYSICAL EXAMINATION: VITAL SIGNS: On admission, his blood pressure was 130/80, pulse is 90, he is afebrile. HEENT: He was anicteric. Conjunctivae are pink. Mucous membranes moist. NECK: Veins do not appear distended. No carotid bruits. CHEST: Clear to auscultation. CARDIOVASCULAR: Regular rate and rhythm. ABDOMEN: Soft. EXTREMITIES: Had no edema. Dorsalis pedis pulse cannot be palpated. SKIN: Cool and dry. NEUROLOGIC: Nonfocal. LABORATORY DATA: ECG shows sinus rhythm. There is [address] segment elevation in V5 and V6. His workup in the Emergency Room last night; he had portable chest x-ray, normal heart size, clear lung newsome. Previous MRA of the carotid arteries last August showed no significant stenosis. His lab work; sodium 127, BUN 21, creatinine 2.0, it has been as high as 2.6 in 2019. Glucose 116. His troponin 0.09. His white blood cell count was 5.9, hemoglobin 14.6. IMPRESSION AND RECOMMENDATIONS: 1. Left arm pain. Atypical for angina. No evidence of myocardial infarction. At this time, I think it is reasonable to discontinue the patient on medical therapy. 2. Previous multiple stents. The patient is on aspirin and Plavix. 3. Hypertension. The patient is on an RITU inhibitor. He recently was taken off of carvedilol. 4. Hyperlipidemia. The patient is on a statin drug. 5. Coronary artery disease. I would continue isosorbide and Ranexa at this time. 6. Previous tobacco abuse. I recommend he stop smoking. 7. History of illicit drug use. 8. Manic depressive illness. The patient followed by Psychiatry. 9. 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 No symptoms of claudication. <ELECTRONICALLY SIGNED> By: Thiago Hendrickson MD, FACC 12/09/19 1053 1104 [id number] Hendrickson MD, FACC /nt
== END 2019-12-08 11:12 | disposition left against medical advice (07) | DRG 302 ==
LOC: M.ERS 15:03 → M.TBA-ER 16:15 → M.2W 16:15
PROVIDERS: Family Medicine; ADMIT Internal Medicine
DX: I25.119 Atherosclerotic heart disease of native coronary artery with unspecified angina pectoris (principal); N17.0 Acute kidney failure with tubular necrosis; E87.1 Hypo-osmolality and hyponatremia; I73.9 Peripheral vascular disease, unspecified; K21.9 Gastro-esophageal reflux disease without esophagitis; F41.9 Anxiety disorder, unspecified; F31.9 Bipolar disorder, unspecified; E78.00 Pure hypercholesterolemia, unspecified; N40.0 Benign prostatic hyperplasia without lower urinary tract symptoms; G47.00 Insomnia, unspecified; N18.3 Chronic kidney disease, stage 3 (moderate); F17.210 Nicotine dependence, cigarettes, uncomplicated; E78.5 Hyperlipidemia, unspecified; I12.9 Hypertensive chronic kidney disease with stage 1 through stage 4 chronic kidney disease, or unspecified chronic kidney disease; Z95.5 Presence of coronary angioplasty implant and graft; Z87.11 Personal history of peptic ulcer disease; Z91.14 Patient's other noncompliance with medication regimen; Z98.49 Cataract extraction status, unspecified eye; Z79.899 Other long term (current) drug therapy; Z79.82 Long term (current) use of aspirin; Z88.8 Allergy status to other drugs, medicaments and biological substances; Z82.49 Family history of ischemic heart disease and other diseases of the circulatory system

== ENCOUNTER 2020-04-09 04:19 | Emergency (ER) | payer OTHER, MEDICAID ==
[~2020-04-09] VITALS: Ht 182.9 cm; Wt 77.6 kg
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
[~2020-04-09 04:19] MED LIST changes: +DEPAKOTE ER500 M1 PO; +LISINOPRIL2.5 MG PO; +OLANZAPINE10 M1 PO; +VENLAFAXINE HC225 MG PO
[2020-04-09] MEDS ORDERED: FAMOTIDINE 20 M20 MG PO (04:33)
[2020-04-09] MEDS ORDERED: NORCO 5-325 TA1 EAC1 PO (05:07)
[2020-04-09 05:49] VITALS: BP 135/77
== END 2020-04-09 05:51 | disposition home or self-care (01) ==
LOC: M.ERS 04:19
DX: S86.912A Strain of unspecified muscle(s) and tendon(s) at lower leg level, left leg, initial encounter (principal); I25.10 Atherosclerotic heart disease of native coronary artery without angina pectoris; I12.9 Hypertensive chronic kidney disease with stage 1 through stage 4 chronic kidney disease, or unspecified chronic kidney disease; N18.3 Chronic kidney disease, stage 3 (moderate); E78.00 Pure hypercholesterolemia, unspecified; K21.9 Gastro-esophageal reflux disease without esophagitis; I73.9 Peripheral vascular disease, unspecified; G47.00 Insomnia, unspecified; F31.9 Bipolar disorder, unspecified; Z88.3 Allergy status to other anti-infective agents; W19.XXXA Unspecified fall, initial encounter; Y93.89 Activity, other specified; Y92.89 Other specified places as the place of occurrence of the external cause; Y99.8 Other external cause status

== ENCOUNTER 2020-04-16 21:43 | Emergency (ER) | payer OTHER, MEDICAID ==
[~2020-04-16] VITALS: Ht 182.9 cm; Wt 79.4 kg
[~2020-04-16 21:43] MED LIST changes: +FAMOTIDINE 20 M20 MG PO; +NORCO 5-325 TA1 EAC1 PO
[2020-04-16 23:00] LABS: ABSOLUTE BASOPHILS 0.1 thou/uL (0.0-0.2); ABSOLUTE EOSINOPHILS 0.1 thou/uL (0.0-0.7); ABSOLUTE NEUTROPHILS 4.9 thou/uL (1.6-8.1); BASOPHILS 0.6 %; EOSINOPHILS 1.6 %; HEMATOCRIT 36.7 % (42.0-52.0); HEMOGLOBIN 12.7 gm/dL (14.0-18.0); LYMPHOCYTES 24.8 %; MCH 31.1 pg (26.0-34.0); MCHC 34.6 g/dL (28.0-37.0); MONOCYTES 12.6 %; MPV 6.3 fl. (7.2-11.1); NUCLEATED RBCS 0 /100WBC; PLATELET COUNT* 387 thou/uL (150-400); POLYS 60.4 %; RBC 4.08 mil/uL (4.50-6.00); RDW-CV 14.7 % (10.5-14.5); WBC 8.2 thou/uL (4.0-11.0)
[2020-04-16 23:13] LABS: URINE BILIRUBIN NEGATIVE (Negative); URINE BLOOD NEGATIVE (Negative); URINE CLARITY CLEAR; URINE COLOR YELLOW; URINE GLUCOSE-RANDOM NEGATIVE (Negative); URINE KETONES NEGATIVE (Negative); URINE LEUKOCYTES-REFLEX NEGATIVE (Negative); URINE NITRITE-REFLEX NEGATIVE (Negative); URINE PROTEIN TRACE (Negative); URINE UROBILINOGEN 0.2 E.U./dl (0.2-1.0)
[2020-04-16 23:14] LABS: PROTIME 10.2 Seconds (9.20-11.50)
[2020-04-16 23:15] LABS: CALCIUM 9.2 mg/dL (8.5-10.1); CREATININE 1.9 mg/dL (0.6-1.3); POTASSIUM 4.3 mmol/L (3.5-5.1)
[2020-04-16 23:25] LABS: ALBUMIN 3.2 g/dL (3.4-5.0); MAGNESIUM 1.7 mg/dL (1.8-2.4); TOTAL BILIRUBIN 0.3 mg/dL (<0.1-1.0); TOTAL PROTEIN 6.3 g/dL (6.4-8.2)
[2020-04-17 02:09] VITALS: BP 127/77
--- NOTE | 2020-04-17 09:50 | EKG ---
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[place] : 1955 Requested By: Cassy Dodson Order Number: [id number] MD: Janak Watters Measurements Intervals [place] Rate: 90 P: 100 SC: 216 QRS: 74 QRSD: 95 T: 119 QT: 371 QTc: 454 Interpretive Statements Sinus rhythm Ventricular premature complex Borderline prolonged SC interval Consider right atrial enlargement Probable anterolateral infarct, old Repol abnrm suggests ischemia, lateral leads Compared to ECG 12/07/2019 15:08:10 Ventricular premature complex(es) now present Myocardial infarct finding now present Possible ischemia now present Intraventricular conduction delay no longer present Electronically Signed On 04-17-2020 9:49:23 CDT by Janak Watters [email or web address] <ELECTRONICALLY SIGNED> By: Barby Watters MD, [facility] 04/17/20 0949 45 2246 Barby Watters MD, [facility] /EPI
== END 2020-04-17 02:10 | disposition home or self-care (01) ==
LOC: M.ERS 21:43
PROVIDERS: Emergency Medicine
DX: E87.1 Hypo-osmolality and hyponatremia (principal); R42 Dizziness and giddiness; I12.9 Hypertensive chronic kidney disease with stage 1 through stage 4 chronic kidney disease, or unspecified chronic kidney disease; I25.10 Atherosclerotic heart disease of native coronary artery without angina pectoris; E78.00 Pure hypercholesterolemia, unspecified; N18.3 Chronic kidney disease, stage 3 (moderate); K21.9 Gastro-esophageal reflux disease without esophagitis; F31.9 Bipolar disorder, unspecified; F17.210 Nicotine dependence, cigarettes, uncomplicated; Z95.5 Presence of coronary angioplasty implant and graft; Z88.8 Allergy status to other drugs, medicaments and biological substances

== ENCOUNTER 2020-05-23 16:30 | Emergency (ER) | payer OTHER, MEDICAID | END 2020-05-23 18:35 | disposition home or self-care (01) | LOC: M.ERS 16:30 | DX: S01.01XA Laceration without foreign body of scalp, initial encounter (principal); E78.00 Pure hypercholesterolemia, unspecified; K21.9 Gastro-esophageal reflux disease without esophagitis; I25.10 Atherosclerotic heart disease of native coronary artery without angina pectoris; I13.10 Hypertensive heart and chronic kidney disease without heart failure, with stage 1 through stage 4 chronic kidney disease, or unspecified chronic kidney disease; N18.3 Chronic kidney disease, stage 3 (moderate); N40.0 Benign prostatic hyperplasia without lower urinary tract symptoms; F17.210 Nicotine dependence, cigarettes, uncomplicated; Z88.8 Allergy status to other drugs, medicaments and biological substances; W01.0XXA Fall on same level from slipping, tripping and stumbling without subsequent striking against object, initial encounter; Y93.89 Activity, other specified; Y92.89 Other specified places as the place of occurrence of the external cause; Y99.8 Other external cause status ==

== ENCOUNTER 2020-06-01 09:29 | Emergency (ER) | payer OTHER, MEDICAID ==
[~2020-06-01] VITALS: Ht 182.9 cm; Wt 73.5 kg
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
[2020-06-01] MEDS ORDERED: ULTRAM 50MG TAB50 MG PO (11:51)
[2020-06-01 12:03] VITALS: BP 154/79
== END 2020-06-01 12:04 | disposition home or self-care (01) ==
LOC: M.ERS 09:29
DX: S70.11XA Contusion of right thigh, initial encounter (principal); E78.00 Pure hypercholesterolemia, unspecified; K21.9 Gastro-esophageal reflux disease without esophagitis; I25.10 Atherosclerotic heart disease of native coronary artery without angina pectoris; N40.0 Benign prostatic hyperplasia without lower urinary tract symptoms; I73.9 Peripheral vascular disease, unspecified; I13.10 Hypertensive heart and chronic kidney disease without heart failure, with stage 1 through stage 4 chronic kidney disease, or unspecified chronic kidney disease; N18.3 Chronic kidney disease, stage 3 (moderate); F17.210 Nicotine dependence, cigarettes, uncomplicated; Z88.8 Allergy status to other drugs, medicaments and biological substances; W01.0XXA Fall on same level from slipping, tripping and stumbling without subsequent striking against object, initial encounter; Y93.89 Activity, other specified; Y92.89 Other specified places as the place of occurrence of the external cause; Y99.8 Other external cause status

== ENCOUNTER 2020-07-01 14:00 | Emergency (ER) | payer OTHER, MEDICAID ==
[~2020-07-01] VITALS: Ht 182.9 cm; Wt 74.8 kg
[2020-07-01] MEDS ORDERED: APAP W/CODEINE1 TA2 PO (14:57)
[2020-07-01 15:15] VITALS: BP 149/77
== END 2020-07-01 15:16 | disposition home or self-care (01) ==
LOC: M.ERS 14:00
DX: S76.811A Strain of other specified muscles, fascia and tendons at thigh level, right thigh, initial encounter (principal); F17.210 Nicotine dependence, cigarettes, uncomplicated; E78.00 Pure hypercholesterolemia, unspecified; K21.9 Gastro-esophageal reflux disease without esophagitis; I25.10 Atherosclerotic heart disease of native coronary artery without angina pectoris; I12.9 Hypertensive chronic kidney disease with stage 1 through stage 4 chronic kidney disease, or unspecified chronic kidney disease; N18.3 Chronic kidney disease, stage 3 (moderate); Z88.8 Allergy status to other drugs, medicaments and biological substances; Z79.899 Other long term (current) drug therapy; Z98.890 Other specified postprocedural states; X50.1XXA Overexertion from prolonged static or awkward postures, initial encounter; Y93.89 Activity, other specified; Y92.89 Other specified places as the place of occurrence of the external cause; Y99.9 Unspecified external cause status

== ENCOUNTER 2020-07-18 09:53 | Emergency (ER) | payer OTHER, MEDICAID ==
[~2020-07-18] VITALS: Ht 182.9 cm; Wt 81.7 kg
--- NOTE | ~2020-07-18 | EMS ---
[place] [address] EMS Patient Care Report Name: JINNY BUTLER Room: [facility]#: [id number] Admission: 07/18/20 Attend Phys: Discharge: 07/18/20 Date of : 55 Report #: [id number] THIS REPORT FOR: //name// Report Transmitted: 07/18/2020 11:00 EMS Care Summary [place] [facility] Incident 20-0745 @ 07/18/2020 09:22 Incident Location [address] [place] [address] Patient JINNY BUTLER Male, 65 Years 1955 Patient Address [address] [place] [address] Patient History Hypertension (HTN),Hyperparathyroidism, Patient Allergies No known allergies, Chief Complaint Right Leg Pain Disposition Transported No Lights/[place] Dispatch Reason No Other Appropriate Choice Transported To [facility] Narrative Med 1 and Engine 2 were dispatched for a [age] year-old male c/o right leg pain for the last eight months. Upon arrival, the patient was sitting in a recliner in his living room with his bag packed ready to go. Patient reports that his leg has started hurting again and he was just seen [place] [address] EMS Patient Care Report Name: JINNY BUTLER [id number] Admission: 07/18/20 Attend Phys: Discharge: 07/18/20 Date of : 55 Report #: [id number] they DX him with a pulled muscle. Patient is AOx4, strong, regular radial pulses. Patient does not appear in any distress and was able to walk to the stretcher by the door with assistance and c/o no pain at this time. Initial Vitals @09:32P: 88,R: 20,BP: 146/90,Pain: 8/10,GCS: 15,SpO2: 98,Revised Trauma: 12, @09:45P: 86,R: 20,BP: 152/86,Pain: 8/10,GCS: 15,SpO2: 96,Revised Trauma: 12, Assessments @10:03MENTAL:No Abnormalities,SKIN:No Abnormalities,HEENT:Head/Face: No Abnormalities,Eyes: No Abnormalities,Neck/Airway: No Abnormalities,LUNG SOUNDS:ABDOMEN:PELVIS//GI:EXTREMITIES:Left Arm: No Abnormalities,Right Arm: No Abnormalities,Left Leg: No Abnormalities,Right Leg: No Abnormalities,PULSE:NEURO:No Abnormalities, Impression Pain (Non-Traumatic) Procedures @10:01BLS AssessmentResponse: Unchanged@10:02StretcherResponse: Unchanged Timeline 09:22,Call Received 09:22,Dispatched 09:23,En Route 09:25,On Scene 09:26,At Patient 09:30,Depart Scene 09:32,BP: 146/90 M,PULSE: 88,RR: 20 R,SPO2: 98 Ox,ETCO2: ,BG: ,PAIN: 8,GCS: 15, 09:45,BP: 152/86 M,PULSE: 86,RR: 20 R,SPO2: 96 Ox,ETCO2: ,BG: ,PAIN: 8,GCS: 15, 09:50,At Destination 10:01,BLS Assessment,Response: Unchanged 10:02,Stretcher,Response: Unchanged 10:13,Call Closed 10:13,In District Disclaimer v1.1 Copyright 2020 [employer] This EMS Care Summary contains data elements from the applicable legal record (which may be displayed differently). It is designed to provide pertinent information for the following purposes: continuity of care, clinical quality, and state data reporting. The complete legal record is available to ED staff and administrators of the receiving hospital in [employer]'s Patient Tracker. All data is provided "as is."
[~2020-07-18 09:53] MED LIST changes: +APAP W/CODEINE1 TA2 PO
[2020-07-18 10:41] VITALS: BP 129/80
== END 2020-07-18 10:41 | disposition home or self-care (01) ==
LOC: M.ERS 09:53
DX: M79.651 Pain in right thigh (principal); I10 Essential (primary) hypertension; E78.00 Pure hypercholesterolemia, unspecified; K21.9 Gastro-esophageal reflux disease without esophagitis; I25.10 Atherosclerotic heart disease of native coronary artery without angina pectoris; I73.9 Peripheral vascular disease, unspecified; I13.10 Hypertensive heart and chronic kidney disease without heart failure, with stage 1 through stage 4 chronic kidney disease, or unspecified chronic kidney disease; N18.3 Chronic kidney disease, stage 3 (moderate); N40.0 Benign prostatic hyperplasia without lower urinary tract symptoms; F17.210 Nicotine dependence, cigarettes, uncomplicated; Z88.8 Allergy status to other drugs, medicaments and biological substances

== ENCOUNTER 2020-08-07 06:05 | Emergency (ER) | payer OTHER, MEDICAID ==
[~2020-08-07] VITALS: Ht 182.9 cm; Wt 72.6 kg
[2020-08-07 06:29] LABS: ABSOLUTE BASOPHILS 0.1 thou/uL (0.0-0.2); ABSOLUTE EOSINOPHILS 0.3 thou/uL (0.0-0.7); ABSOLUTE LYMPHOCYTES 1.2 thou/uL (0.8-5.3); ABSOLUTE MONOCYTES 0.8 thou/uL (0.0-1.2); ABSOLUTE NEUTROPHILS 4.6 thou/uL (1.6-8.1); BASOPHILS 0.8 %; HEMATOCRIT 30.7 % (42.0-52.0); HEMOGLOBIN 10.4 gm/dL (14.0-18.0); LYMPHOCYTES 17.2 %; MCH 28.7 pg (26.0-34.0); MCHC 33.8 g/dL (28.0-37.0); MCV 85.1 fL (80.0-100.0); MONOCYTES 11.2 %; MPV 6.4 fl. (7.2-11.1); NUCLEATED RBCS 0 /100WBC; PLATELET COUNT* 573 thou/uL (150-400); POLYS 66.8 %; RBC 3.61 mil/uL (4.50-6.00); RDW-CV 16.6 % (10.5-14.5); WBC 6.9 thou/uL (4.0-11.0)
[2020-08-07 06:33] LABS: CALCIUM 8.9 mg/dL (8.5-10.1); CREATININE 1.2 mg/dL (0.6-1.3)
[2020-08-07 06:49] LABS: URINE BILIRUBIN NEGATIVE (Negative); URINE BLOOD NEGATIVE (Negative); URINE CLARITY CLEAR; URINE COLOR YELLOW; URINE GLUCOSE-RANDOM NEGATIVE (Negative); URINE KETONES NEGATIVE (Negative); URINE LEUKOCYTES-REFLEX NEGATIVE (Negative); URINE NITRITE-REFLEX NEGATIVE (Negative); URINE PROTEIN 1+ (Negative); URINE SPECIFIC GRAVITY 1.015 (1.005-1.030)
[2020-08-07 06:58] LABS: AMP/METHAMP Negative (Negative); BARBITURATES Negative (Negative); BENZODIAZEPINES Negative (Negative); COCAINE Negative (Negative); METHADONE Negative (Negative); OPIATES Negative (Negative); PCP Negative (Negative); THC Negative (Negative)
[2020-08-07 07:30] VITALS: BP 161/80
== END 2020-08-07 07:30 | disposition home or self-care (01) ==
LOC: M.ERS 06:05
PROVIDERS: Emergency Medicine
DX: M25.551 Pain in right hip (principal); Z20.828 Contact with and (suspected) exposure to other viral communicable diseases; I13.10 Hypertensive heart and chronic kidney disease without heart failure, with stage 1 through stage 4 chronic kidney disease, or unspecified chronic kidney disease; N18.30 Chronic kidney disease, stage 3 unspecified; E78.00 Pure hypercholesterolemia, unspecified; K21.9 Gastro-esophageal reflux disease without esophagitis; I25.10 Atherosclerotic heart disease of native coronary artery without angina pectoris; I73.9 Peripheral vascular disease, unspecified; N40.0 Benign prostatic hyperplasia without lower urinary tract symptoms; F17.210 Nicotine dependence, cigarettes, uncomplicated; Z88.8 Allergy status to other drugs, medicaments and biological substances; Z79.899 Other long term (current) drug therapy

== ENCOUNTER 2020-08-15 20:09 | Inpatient (IN) | payer OTHER, MEDICAID ==
[~2020-08-15] VITALS: Ht 180.3 cm; Wt 69.4 kg
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
[2020-08-15 20:11] VITALS: BP 97/48
[2020-08-15] MEDS ORDERED: ASA81BEC PO (20:31)
[2020-08-15] MEDS ORDERED: WELLBUTRIN SR150 M1 PO (20:32)
[2020-08-15] MEDS ORDERED: COLACE100 MG PO (20:33)
[2020-08-15] MEDS ORDERED: NEURONTIN 400M400 M2 PO (20:34)
[2020-08-15 20:52] LABS: BE -3.6 mmol/L (-2 to +3); PCO2 32.1 mmHg (35.0-45.0); PO2 88.8 mmHg (75.0-100.0); pH 7.417 (7.340-7.450)
[2020-08-15 20:53] LABS: ABSOLUTE EOSINOPHILS 0.2 thou/uL (0.0-0.7); ABSOLUTE NEUTROPHILS 9.4 thou/uL (1.6-8.1); BASOPHILS 0.3 %; EOSINOPHILS 1.5 %; HEMATOCRIT 28.7 % (42.0-52.0); HEMOGLOBIN 9.4 gm/dL (14.0-18.0); LYMPHOCYTES 8.7 %; MCH 27.1 pg (26.0-34.0); MCHC 32.7 g/dL (28.0-37.0); MCV 82.8 fL (80.0-100.0); MONOCYTES 8.8 %; MPV 6.1 fl. (7.2-11.1); NUCLEATED RBCS 0 /100WBC; PLATELET COUNT* 572 thou/uL (150-400); POLYS 80.7 %; RBC 3.46 mil/uL (4.50-6.00); RDW-CV 15.9 % (10.5-14.5); WBC 11.6 thou/uL (4.0-11.0)
[2020-08-15 21:08] LABS: INR 1.1; PROTIME 10.8 Seconds (9.20-11.50)
[2020-08-15 21:26] LABS: ALBUMIN 2.7 g/dL (3.4-5.0); MAGNESIUM 1.6 mg/dL (1.8-2.4); TOTAL BILIRUBIN 0.5 mg/dL (<0.1-1.0); TOTAL PROTEIN 7.4 g/dL (6.4-8.2)
[2020-08-15 21:37] LABS: CALCIUM 9.3 mg/dL (8.5-10.1); CREATININE 1.4 mg/dL (0.6-1.3); POTASSIUM 5.5 mmol/L (3.5-5.1)
[2020-08-15 22:42] LABS: URINE BILIRUBIN NEGATIVE (Negative); URINE BLOOD NEGATIVE (Negative); URINE CLARITY CLEAR; URINE COLOR YELLOW; URINE GLUCOSE-RANDOM NEGATIVE (Negative); URINE KETONES NEGATIVE (Negative); URINE LEUKOCYTES-REFLEX NEGATIVE (Negative); URINE NITRITE-REFLEX NEGATIVE (Negative); URINE PROTEIN TRACE (Negative); URINE UROBILINOGEN 0.2 E.U./dl (0.2-1.0)
[2020-08-15 22:45] LABS: URINE POTASSIUM-RANDOM 41.3 mmol/L
[2020-08-16] VITALS (24 sets, daily range): BP systolic 106–178; BP diastolic 55–96
[2020-08-16 01:19] LABS: CALCIUM 9.7 mg/dL (8.5-10.1); CREATININE 1.4 mg/dL (0.6-1.3); POTASSIUM 4.7 mmol/L (3.5-5.1)
--- NOTE | 2020-08-16 18:26 | EKG ---
[place] [address] ELECTROCARDIOGRAM REPORT Name: JINNY BUTLER Room: [address] ADM IN .R.#: [id number] Admission: 08/15/20 Attend Phys: Rick Payan, Discharge: Date of : 55 Date of Service: 08/15/202012 Report #: [id number] THIS REPORT FOR: //name// [facility] ED Test Date: 2020-08-15 Test Time: 20:13:45 Pat Name: JINNY BUTLER Department: Room: [facility] Gender: M Intranet Support: CASANDRA : 1955 Requested By: Cassy Dodson Order Number: [id number] MD: Alfonso Daniel Measurements Intervals [place] Rate: 91 P: 66 [place]: 208 QRS: 74 QRSD: 153 T: -5 QT: 401 QTc: 494 Interpretive Statements Sinus rhythm Borderline prolonged AZ interval Right bundle branch block ST depression, consider ischemia, lateral lds Compared to ECG 04/16/2020 22:46:54 Right bundle-branch block now present ST (T wave) deviation now present Ventricular premature complex(es) no longer present Myocardial infarct finding no longer present Early repolarization no longer present Possible ischemia still present Electronically Signed On 08-16-2020 18:26:33 CDT by Alfonso Daniel [email or web address] <ELECTRONICALLY SIGNED> By: Alfonso Daniel MD, FACC 08/16/20 1826 12 12 Alfonso Daniel MD, [facility] /EPI
[2020-08-17] VITALS (11 sets, daily range): BP systolic 128–156; BP diastolic 69–94
[2020-08-17 04:23] LABS: CALCIUM 10.9 mg/dL (8.5-10.1); POTASSIUM 3.8 mmol/L (3.5-5.1)
--- NOTE | 2020-08-25 17:30 | CON ---
[address] [address] CONSULTATION Name: MARIFER BUTLERXIN Millan Room: [address] IN M.R.#: [id number] Admission: 08/15/20 Attend Phys: Rick Payan MD Discharge: 08/17/20 Date of : 55 Report #: [id number] THIS REPORT FOR: //name// cc: KILO Laboy family physician/PCP KILO - No family physician/PCP ~ THIS REPORT FOR: //name// NEPHROLOGY CONSULTATION CONSULTING PHYSICIAN: Dr. Payan. REASON FOR CONSULTATION: Hyponatremia. HISTORY OF PRESENT ILLNESS: A 65-year-old gentleman who is a poor historian, has underlying bipolar disorder, admitted with a sodium of 115. He is not able to provide much in the way of meaningful history. He was given 3% saline. His sodium has come up to 127 over about 17 hours. He appears to have some chronic kidney disease, but I do not believe he sees outpatient test engine evaluator. His creatinine was 1.4 here. He does have hip degenerative joint disease and was also on Depakote and venlafaxine, both known to be associated with hyponatremia. Currently, he appeared to be comfortable. He has no other complaints. REVIEW OF SYSTEMS: Constitutional, psych, heme, eyes, ENT, respiratory, cardiac, GI, , endocrine, all negative except as documented above. PAST MEDICAL HISTORY: Degenerative joint disease, bipolar disorder, hypertension, coronary artery disease with a history of stenting, peripheral vascular disease, BPH, chronic kidney disease stage 3A. CURRENT MEDICATIONS: Reviewed. FAMILY HISTORY: Not pertinent in this 65-year-old gentleman. SOCIAL HISTORY: Positive for tobacco. PHYSICAL EXAMINATION: VITAL SIGNS: Blood pressure is 156/84, pulse 114, respirations 22, temperature 36.7. GENERAL: No acute distress. EYES: Open. EARS: Externally normal. NECK: Supple. CARDIOVASCULAR: Tachycardic. LUNGS: No crackles. ABDOMEN: Soft. MUSCULOSKELETAL: Nontender. PSYCHIATRIC: Awake, [place] [address] CONSULTATION Name: JINNY BUTLER Room: [address]#: [id number] Admission: 08/15/20 Attend Phys: Rick Payan MD Discharge: 08/17/20 Date of : 55 Report #: [id number] LABORATORY DATA: Sodium was 119 at 1:00 this morning and now 127, potassium 4.7, chloride 88, bicarbonate 24, BUN 26, creatinine 1.4, glucose 77, calcium 9.7. White cell count 11.6, hemoglobin 9.4, platelets 572. ASSESSMENT: 1. Hyponatremia with sodium correcting from 115 to 127 in approximately 17 hours. He was on Depakote and venlafaxine, both known to be associated with syndrome of inappropriate secretion of antidiuretic hormone. Also has hip degenerative joint disease. He was treated with 3% saline. On 08/07, his sodium was 136. In 04/2020, his sodium was 126. Urine sodium is 15, urine potassium 41, urine osmolarity is pending. CT head and chest x-ray were unrevealing. 2. Chronic kidney disease stage 3A: On 08/07, creatinine was 1.2, has been up to 2.3 in the past. Urinalysis is noted. Baseline creatinine appears to be about 1.2-1.4 in 08/2019, renal ultrasound was unrevealing. 3. Bilateral small renal cysts noted in 08/2019 renal ultrasound. 4. Bipolar disorder. 5. Hypertension. 6. Coronary artery disease with a history of stent. 7. Severe right hip degenerative joint disease. 8. Peripheral vascular disease. 9. Benign prostatic hypertrophy. PLAN: Sodium has corrected rapidly. We will discontinue the 3% saline formally and give D5W with a dose of DDAVP as he has had over 3 liters of urine output. We will recheck sodium and give parameters to notify so that we can ensure it is correcting appropriately. Check TSH. We will check lab again in the a.m. Thank you for requesting my opinion in the care and management of this patient. <ELECTRONICALLY SIGNED> By: Gomez Jimenez MD 08/25/20 1730 1450 1625Amaxine Jimenez MD /nt
--- NOTE | 2020-08-25 18:51 | CON ---
[address] [address] CONSULTATION Name: BUTLERJINNY R Room: [address] IN M.R.#: [id number] Admission: 08/15/20 Attend Phys: Rick Payan MD Discharge: 08/17/20 Date of : 55 Report #: [id number] THIS REPORT FOR: //name// cc: KILO Akers No family physician/PCP KILO - No family physician/PCP ~ THIS REPORT FOR: //name// DATE OF SERVICE: 08/16/2020 HISTORY OF PRESENT ILLNESS: This is a 65-year-old male patient who was seen by me for confusion. This patient was discussed with the nurse looking after this patient and I tried to call the patient's significant others, but the phone goes directly to the voicemail. He was admitted with altered mental status and found to have hyponatremia. That has improved and patient's mental status has also improved. I do not know what his baseline is. He also has some hip pain for which orthopedic is seeing this patient. On admission, he had a CT scan of the head and C-spine and CT of the head does not show any acute changes. REVIEW OF SYSTEMS: Very difficult. I reviewed the record and try to talk to the patient and the nurse, but all of it did not provide any good history. The record indicates that he had some falls. He has poor memory. Record indicate that he has a bipolar disorder, history of acute renal failure, renal insufficiency, is not clear what the cause of hyponatremia is. He has hip pain. He has a history of GI bleed and metabolic encephalopathy, weakness in general. He had some orthostatic hypertension. Record also indicate he has polypharmacy. He does not say anything about that. He has a history of IV drug abuse, insomnia, prostate problem, coronary artery disease, peripheral vascular disease, cataract surgery, venous problem, rotator cuff tear, high cholesterol, and history of hypertension. This is all the 14-point review of system I could get. PAST MEDICAL HISTORY: Positive for some back pain. FAMILY HISTORY: Unavailable. SOCIAL HISTORY: By record, he smokes. PHYSICAL EXAMINATION: Indicate he is pretty sleepy, but then he wakes up, he follows some commands, he could not tell me what month or what day it is. He knew who the president was, but he does not know what hospital he was in. Cranial nerve examination 2-12 looks mostly unremarkable. He moves all 4 extremities. I tried to do the position sense, he did not cooperate. I tried to do the reflexes. He did not relax. There is no meningeal sign. I could not look at the fundus. He is a well-developed individual. His blood pressure is 156/84, respirations 112, temperature is 98.1, oxygen saturation is normal. Cardiac and respiratory examination [place] [address] CONSULTATION Name: JINNY BUTLER Monty Room: [address] IN .R.#: [id number] Admission: 08/15/20 Attend Phys: Rick Payan MD Discharge: 08/17/20 Date of : 55 Report #: [id number] LABORATORY DATA: Indicate a white count of 11.6. His sodium was pretty low when he came in, it is becoming better. His creatinine is 1.4. His TSH and B12 is normal. B12 was done last year. IMPRESSION: This patient appeared to have confusion, is probably related to hyponatremia. I really need to talk to the patient's to see what the baseline is, then we can decide about what further treatment can be done in this patient. I will try to continue to reach and presently, we will see how much he improves by correcting the hyponatremia. Thank you very much for this referral. <ELECTRONICALLY SIGNED> By: Hayden Painter MD 08/25/20 1851 1710 1754Pcintia Painter MD /nt
== END 2020-08-17 14:56 | disposition home or self-care (01) | DRG 535 ==
LOC: M.ERS 20:09 → M.TBA-ER 22:31 → M.ICU 22:31
PROVIDERS: Emergency Medicine; Internal Medicine Nephrology; ADMIT Internal Medicine; ATTEND Internal Medicine
DX: S72.011A Unspecified intracapsular fracture of right femur, initial encounter for closed fracture (principal); G93.41 Metabolic encephalopathy; E87.1 Hypo-osmolality and hyponatremia; I50.32 Chronic diastolic (congestive) heart failure; E44.0 Moderate protein-calorie malnutrition; I13.0 Hypertensive heart and chronic kidney disease with heart failure and stage 1 through stage 4 chronic kidney disease, or unspecified chronic kidney disease; F31.9 Bipolar disorder, unspecified; G89.29 Other chronic pain; D72.829 Elevated white blood cell count, unspecified; D64.9 Anemia, unspecified; E87.8 Other disorders of electrolyte and fluid balance, not elsewhere classified; E78.00 Pure hypercholesterolemia, unspecified; K21.9 Gastro-esophageal reflux disease without esophagitis; I25.10 Atherosclerotic heart disease of native coronary artery without angina pectoris; E83.42 Hypomagnesemia; M54.9 Dorsalgia, unspecified; M19.90 Unspecified osteoarthritis, unspecified site; N18.31 Chronic kidney disease, stage 3a; I73.9 Peripheral vascular disease, unspecified; G47.00 Insomnia, unspecified; N28.1 Cyst of kidney, acquired; N40.0 Benign prostatic hyperplasia without lower urinary tract symptoms; T50.995A Adverse effect of other drugs, medicaments and biological substances, initial encounter; Z20.828 Contact with and (suspected) exposure to other viral communicable diseases; Z79.899 Other long term (current) drug therapy; Z68.21 Body mass index [BMI] 21.0-21.9, adult; Z98.49 Cataract extraction status, unspecified eye; Z88.8 Allergy status to other drugs, medicaments and biological substances; Z87.891 Personal history of nicotine dependence; Z95.5 Presence of coronary angioplasty implant and graft; W19.XXXA Unspecified fall, initial encounter; Y93.89 Activity, other specified; Y92.89 Other specified places as the place of occurrence of the external cause; Y99.8 Other external cause status

== ENCOUNTER 2020-08-27 10:09 | Inpatient (IN) | payer OTHER, MEDICAID ==
[2020-08-27] VITALS (10 sets, daily range): BP systolic 151–181; BP diastolic 70–96
[~2020-08-27] VITALS: Ht 182.9 cm; Wt 70.3 kg
--- NOTE | ~2020-08-27 | OP ---
[address] [address] OPERATIVE REPORT Name: JINNY BUTLER Monty Room: [address] IN .R.#: [id number] Admission: 08/27/20 Attend Phys: Merari Martin MD Discharge: Date of : 55 Report #: [id number] THIS REPORT FOR: //name// cc: Taylor Plaza Ahmad W. DO ~ CC: Taylor Martin DICTATED BY: Robert Elliott DO DATE OF SERVICE: 08/30/2020 PREOPERATIVE DIAGNOSIS: Right displaced femoral neck fracture. POSTOPERATIVE DIAGNOSIS: Right displaced femoral neck fracture. PROCEDURE PERFORMED: Right hip bipolar hemiarthroplasty utilizing Francisco Biomet hip system with the following components: 1. A size 16 [place] complete standard offset femoral component. 2. A +6 mm with 48 mm bipolar head. SURGEON: Thiago Dick DO GRAVEL TRUCK DRIVER: Robert Elliott DO, ____, DO and Tien Hardy DO ANESTHESIA: General. ESTIMATED BLOOD LOSS: 200 mL. COMPLICATIONS: None. COMPLICATIONS: None. ANTIBIOTICS: 2 g Ancef IV preoperatively. INDICATIONS FOR PROCEDURE: The patient is a 65-year-old male who presented to [facility] Emergency Department on 08/27/2020 after a fall, complaining of right hip pain. Radiographs were obtained, which demonstrated displaced right femoral neck fracture. Surgical intervention was recommended for the patient. He did have hyponatremia upon admission, which was corrected preoperatively. Once appropriate medical clearance was obtained, we did proceed with surgical intervention. DESCRIPTION OF PROCEDURE: The patient was seen and examined in the preoperative holding area. The correct operative extremity was marked. Written consent was obtained for the procedure. He was given the benefit of [place] [address] OPERATIVE REPORT Name: JINNY BUTLER Monty Room: [address] IN [facility]#: [id number] Admission: 08/27/20 Attend Phys: Merari Martin MD Discharge: Date of : 55 Report #: [id number] placed supine on the [place] table. Bilateral lower extremities were placed into the spars. Right lower extremity was then prepped and draped in the usual sterile fashion. Timeout was performed to verify the correct patient, procedure and operative extremity and all were in agreement. Next, procedure began with an incision approximately 2 fingerbreadths lateral and distal to the anterior superior iliac spine. Sharp dissection was carried down to the tensor fascia. This was split longitudinally in line with the incision. Next, the plane between the TFL and sartorius was developed bluntly. The circumflex vessels were then cauterized with the Aquamantys. Appropriate retractors were placed in the femoral neck. The anterior hip capsule was then identified and cauterized utilizing the Aquamantys. H capsulectomy was then performed in the standard fashion. This visualized the femoral neck as well as the femoral neck fracture site, which was noted to be comminuted in the transcervical region. The femoral head was removed at that time. All excess bone fragments were removed. The head was measured to a size 48. The size 48 trial head was then inserted into the acetabulum. This was noted to have excellent suction as well as fit and coverage in the acetabulum. Attention was then turned to the femur. Appropriate releases were made off the posterior femur. Next, appropriate retractors were placed and the femoral lift was inserted. The leg was then externally rotated and extended and adducted allowing access to the femur. The femoral canal was then opened with the box osteotome followed by the rat tail rasp. The femur was then broached sequentially up to a size 16. The size 16 was noted to have excellent stability. This was then trialed with various head and neck sizes. The hip was reduced and fluoroscopy was used to visualize the trial stem as well as leg lengths. The +6 was noted to have most appropriate stability as well as leg length. The final components were then placed in the standard fashion with no complication. Hip was then reduced. Final radiographs were again obtained demonstrating no complications. The incision was thoroughly irrigated with normal saline. 40 mL of orthopedic cocktail were injected. The tensor fascia was closed with a #1 Vicryl in a running fashion followed by 2-0 Vicryl subcutaneously and 3-0 Stratafix followed by skin glue. Sterile dressing was applied. The patient was awakened from anesthesia and transferred to the PACU in stable condition. By: 1401 [id number] Dick DO /yuni
[~2020-08-27 10:09] MED LIST changes: +ASA81BEC PO; +COLACE100 MG PO; +NEURONTIN 400M400 M2 PO; +WELLBUTRIN SR150 M1 PO
[2020-08-27 10:50] LABS: URINE BILIRUBIN NEGATIVE (Negative); URINE BLOOD NEGATIVE (Negative); URINE CLARITY CLEAR; URINE COLOR YELLOW; URINE GLUCOSE-RANDOM NEGATIVE (Negative); URINE KETONES NEGATIVE (Negative); URINE LEUKOCYTES-REFLEX NEGATIVE (Negative); URINE NITRITE-REFLEX NEGATIVE (Negative); URINE PROTEIN 1+ (Negative); URINE SPECIFIC GRAVITY <= 1.005 (1.005-1.030); URINE UROBILINOGEN 0.2 E.U./dl (0.2-1.0)
[2020-08-27 10:58] LABS: AMP/METHAMP Negative (Negative); BARBITURATES Negative (Negative); BENZODIAZEPINES Negative (Negative); COCAINE Negative (Negative); METHADONE Negative (Negative); OPIATES Negative (Negative); PCP Negative (Negative); THC Negative (Negative)
[2020-08-27 11:10] LABS: ABSOLUTE EOSINOPHILS 0.1 thou/uL (0.0-0.7); ABSOLUTE LYMPHOCYTES 0.8 thou/uL (0.8-5.3); ABSOLUTE MONOCYTES 0.6 thou/uL (0.0-1.2); ABSOLUTE NEUTROPHILS 4.6 thou/uL (1.6-8.1); BASOPHILS 0.4 %; EOSINOPHILS 1.1 %; HEMATOCRIT 28.3 % (42.0-52.0); HEMOGLOBIN 9.6 gm/dL (14.0-18.0); LYMPHOCYTES 12.8 %; MCH 27.4 pg (26.0-34.0); MCV 80.7 fL (80.0-100.0); MONOCYTES 10.1 %; NUCLEATED RBCS 0 /100WBC; PLATELET COUNT* 520 thou/uL (150-400); POLYS 75.6 %; RBC 3.51 mil/uL (4.50-6.00); RDW-CV 16.3 % (10.5-14.5); WBC 6.1 thou/uL (4.0-11.0)
[2020-08-27 11:17] LABS: CALCIUM 9.3 mg/dL (8.5-10.1); CREATININE 1.2 mg/dL (0.6-1.3); POTASSIUM 4.2 mmol/L (3.5-5.1)
[2020-08-27 11:22] LABS: ALBUMIN 2.4 g/dL (3.4-5.0); TOTAL BILIRUBIN 0.4 mg/dL (<0.1-1.0); TOTAL PROTEIN 7.7 g/dL (6.4-8.2)
[2020-08-27 14:33] LABS: CALCIUM 9.3 mg/dL (8.5-10.1); CREATININE 1.1 mg/dL (0.6-1.3); POTASSIUM 4.3 mmol/L (3.5-5.1)
[2020-08-27 14:52] LABS: APTT 34.2 Seconds (25.0-31.3); INR 1.1; PROTIME 11.1 Seconds (9.20-11.50)
--- NOTE | 2020-08-27 16:19 | 2DMMODE ---
[place] [address] 2 D/M-MODE ECHOCARDIOGRAM Name: JINNY BUTLER Monty Room: [address] IN .R.#: [id number] Admission: 08/27/20 Attend Phys: Merari Martin, Discharge: Date of : 55 Date of Service: 08/27/20 1619 Report #: [id number] THIS REPORT FOR: cc: [place] Ahmad W. DO Holkins,Keny Hawkins MD [facility] ~ APPROVED REPORT Study performed: 08/27/2020 15:12:02 EXAM: Limited 2D and color flow Echocardiogram Patient Location: ICU BSA: 1.92 HR: 86 bpm BP: 151/70 mmHg Other Information Study Quality: Technically Limited Technically limited study due to uncooperative patient, inability to position patient. Indications Pre-Op 2D Dimensions IVSd: 10.36 (7-11mm) LVOT Diam: 21.58 (18-24mm) LVDd: 43.42 mm PWd: 5.64 (7-11mm) Ascending Ao: 31.85 (22-36mm) LVDs: 34.34 (25-40mm) Aortic Root: 27.89 mm Left Ventricle The left ventricle is normal size. There is normal left ventricular wall thickness. The left ventricular systolic function is normal. The left ventricular ejection fraction is within the normal range. LVEF is 55%. Right Ventricle The right ventricle is normal size. Atria The left atrium size is normal. Aortic Valve [address] [address] 2 D/M-MODE ECHOCARDIOGRAM Name: JINNY BUTLER Monty Room: [address] IN [facility]#: [id number] Admission: 08/27/20 Attend Phys: Merari Martin, Discharge: Date of : 55 Date of Service: 08/27/201618 Report #: [id number] Mild aortic valve sclerosis. Mitral Valve Mild mitral annular calcification. Pericardium There is no pericardial effusion. <Conclusion> The left ventricle is normal size. The left ventricular systolic function is normal. The left ventricular ejection fraction is within the normal range. LVEF is 55%. The right ventricle is normal size. Mild aortic valve sclerosis. Mild mitral annular calcification. There is no pericardial effusion. <ELECTRONICALLY SIGNED> By: Keny Luciano MD, FACC 08/27/201618 18 18 Keny Luciano MD, FACC /INF
--- NOTE | 2020-08-27 16:46 | EKG ---
[place] [address] ELECTROCARDIOGRAM REPORT Name: JINNY BUTLER Room: [address] ADM IN .R.#: [id number] Admission: 08/27/20 Attend Phys: Merari Martin, Discharge: Date of : 55 Date of Service: 08/27/20 1211 Report #: [id number] THIS REPORT FOR: //name// [facility] ED Test Date: 2020-08-27 Test Time: 12:11:59 Pat Name: JINNY BUTLER Department: Room: [facility] Gender: M Scientific Director: CASANDRA : 1955 Requested By: Ezra Espinal Order Number: [id number] MD: Keny Luciano Measurements Intervals [place] Rate: 96 P: 77 SD: 171 QRS: 55 QRSD: 94 T: 93 QT: 359 QTc: 454 Interpretive Statements Sinus rhythm Consider left atrial enlargement Repol abnrm suggests ischemia, lateral leads Baseline wander in lead(s) II,III,aVF,V5,V6 Compared to ECG 08/15/2020 20:13:45 Early repolarization now present Right bundle-branch block no longer present Anterolateral ST-T abnormalities persist Possible ischemia still present Electronically Signed On 08-27-2020 16:46:12 CDT by Kney Luciano [email or web address] <ELECTRONICALLY SIGNED> By: Keny Luciano MD, [facility] 08/27/20 1646 10 10 Keny Luciano MD, [facility] /EPI
[2020-08-27 18:07] LABS: CALCIUM 9.4 mg/dL (8.5-10.1); CREATININE 1.1 mg/dL (0.6-1.3); POTASSIUM 4.6 mmol/L (3.5-5.1)
[2020-08-27 22:20] LABS: CALCIUM 9.4 mg/dL (8.5-10.1); POTASSIUM 4.1 mmol/L (3.5-5.1)
[2020-08-28] VITALS (22 sets, daily range): BP systolic 107–159; BP diastolic 67–94
[2020-08-28 02:33] LABS: CALCIUM 9.1 mg/dL (8.5-10.1); POTASSIUM 4.1 mmol/L (3.5-5.1)
[2020-08-28 08:09] LABS: CALCIUM 9.3 mg/dL (8.5-10.1); CREATININE 0.9 mg/dL (0.6-1.3); POTASSIUM 4.2 mmol/L (3.5-5.1)
[2020-08-28 10:53] LABS: CALCIUM 9.3 mg/dL (8.5-10.1); CREATININE 0.9 mg/dL (0.6-1.3); POTASSIUM 4.1 mmol/L (3.5-5.1)
[2020-08-28 14:32] LABS: CALCIUM 9.2 mg/dL (8.5-10.1); CREATININE 0.9 mg/dL (0.6-1.3); POTASSIUM 4.2 mmol/L (3.5-5.1)
[2020-08-28 18:31] LABS: CREATININE 0.9 mg/dL (0.6-1.3); POTASSIUM 4.2 mmol/L (3.5-5.1)
[2020-08-28 22:35] LABS: CALCIUM 9.1 mg/dL (8.5-10.1); CREATININE 0.8 mg/dL (0.6-1.3); POTASSIUM 4.3 mmol/L (3.5-5.1)
[2020-08-29] VITALS (21 sets, daily range): BP systolic 122–163; BP diastolic 67–90
[2020-08-29 02:55] LABS: CALCIUM 9.6 mg/dL (8.5-10.1); CREATININE 0.8 mg/dL (0.6-1.3); POTASSIUM 4.1 mmol/L (3.5-5.1)
[2020-08-29 06:24] LABS: HEMATOCRIT 30.2 % (42.0-52.0); MCV 81.9 fL (80.0-100.0); RBC 3.68 mil/uL (4.50-6.00); RDW-CV 16.3 % (10.5-14.5); WBC 5.6 thou/uL (4.0-11.0)
[2020-08-29 06:37] LABS: ALBUMIN 2.4 g/dL (3.4-5.0); CALCIUM 9.8 mg/dL (8.5-10.1); CREATININE 0.9 mg/dL (0.6-1.3); MAGNESIUM 1.6 mg/dL (1.8-2.4); TOTAL BILIRUBIN 0.3 mg/dL (<0.1-1.0); TOTAL PROTEIN 7.8 g/dL (6.4-8.2)
[2020-08-29 11:47] LABS: CALCIUM 9.7 mg/dL (8.5-10.1); CREATININE 0.9 mg/dL (0.6-1.3); POTASSIUM 4.2 mmol/L (3.5-5.1)
[2020-08-29 14:37] LABS: CALCIUM 9.9 mg/dL (8.5-10.1); CREATININE 0.9 mg/dL (0.6-1.3); POTASSIUM 4.6 mmol/L (3.5-5.1)
[2020-08-29 18:48] LABS: CALCIUM 9.2 mg/dL (8.5-10.1); POTASSIUM 4.5 mmol/L (3.5-5.1)
[2020-08-30] VITALS: BP 157/64
[2020-08-30 04:32] LABS: HEMATOCRIT 25.6 % (42.0-52.0); HEMOGLOBIN 8.5 gm/dL (14.0-18.0); MCH 27.4 pg (26.0-34.0); MCHC 33.4 g/dL (28.0-37.0); MCV 81.9 fL (80.0-100.0); MPV 5.8 fl. (7.2-11.1); RBC 3.12 mil/uL (4.50-6.00); RDW-CV 16.6 % (10.5-14.5); WBC 7.4 thou/uL (4.0-11.0)
[2020-08-30 04:56] LABS: ALBUMIN 1.9 g/dL (3.4-5.0); CALCIUM 9.3 mg/dL (8.5-10.1); MAGNESIUM 1.5 mg/dL (1.8-2.4); POTASSIUM 4.7 mmol/L (3.5-5.1); TOTAL BILIRUBIN 0.2 mg/dL (<0.1-1.0); TOTAL PROTEIN 6.4 g/dL (6.4-8.2)
[2020-08-30 08:00] VITALS: BP 150/78; BP 157/64
[2020-08-30 16:00] VITALS: BP 143/77
[2020-08-31] VITALS: BP 151/85
[2020-08-31 04:00] VITALS: BP 135/72
[2020-08-31 05:15] LABS: HEMATOCRIT 22.4 % (42.0-52.0); HEMOGLOBIN 7.6 gm/dL (14.0-18.0); MCH 27.6 pg (26.0-34.0); MCHC 34.2 g/dL (28.0-37.0); MCV 80.7 fL (80.0-100.0); RBC 2.77 mil/uL (4.50-6.00); RDW-CV 16.4 % (10.5-14.5); WBC 9.4 thou/uL (4.0-11.0)
[2020-08-31 05:34] LABS: CALCIUM 9.4 mg/dL (8.5-10.1); CREATININE 0.9 mg/dL (0.6-1.3); MAGNESIUM 1.3 mg/dL (1.8-2.4); POTASSIUM 4.5 mmol/L (3.5-5.1); TOTAL BILIRUBIN 0.4 mg/dL (<0.1-1.0); TOTAL PROTEIN 6.4 g/dL (6.4-8.2)
[2020-08-31 07:28] VITALS: BP 139/62
[2020-08-31 11:03] VITALS: BP 148/80
[2020-08-31 11:54] LABS: CALCIUM 9.9 mg/dL (8.5-10.1); POTASSIUM 4.6 mmol/L (3.5-5.1)
[2020-08-31 12:00] VITALS: BP 137/73
[2020-08-31 15:44] LABS: URINE POTASSIUM-RANDOM 13.7 mmol/L
[2020-08-31 16:00] VITALS: BP 132/78
[2020-09-01] VITALS (7 sets, daily range): BP systolic 95–130; BP diastolic 61–76
[2020-09-01 05:35] LABS: HEMATOCRIT 23.2 % (42.0-52.0); HEMOGLOBIN 7.7 gm/dL (14.0-18.0); MCH 27.3 pg (26.0-34.0); MCHC 33.2 g/dL (28.0-37.0); MCV 82.2 fL (80.0-100.0); MPV 5.7 fl. (7.2-11.1); RBC 2.83 mil/uL (4.50-6.00); RDW-CV 16.5 % (10.5-14.5); WBC 7.9 thou/uL (4.0-11.0)
[2020-09-01 05:48] LABS: CALCIUM 9.6 mg/dL (8.5-10.1); CREATININE 0.9 mg/dL (0.6-1.3); MAGNESIUM 2.1 mg/dL (1.8-2.4); POTASSIUM 4.2 mmol/L (3.5-5.1); TOTAL BILIRUBIN 0.4 mg/dL (<0.1-1.0); TOTAL PROTEIN 6.5 g/dL (6.4-8.2)
[2020-09-02 00:48] VITALS: BP 126/70
[2020-09-02 04:53] VITALS: BP 104/62
[2020-09-02 05:52] LABS: HEMATOCRIT 24.5 % (42.0-52.0); HEMOGLOBIN 8.3 gm/dL (14.0-18.0); MCH 27.6 pg (26.0-34.0); MCHC 33.9 g/dL (28.0-37.0); MCV 81.3 fL (80.0-100.0); MPV 5.8 fl. (7.2-11.1); RBC 3.01 mil/uL (4.50-6.00); WBC 7.3 thou/uL (4.0-11.0)
[2020-09-02 06:06] LABS: ALBUMIN 1.9 g/dL (3.4-5.0); CALCIUM 9.1 mg/dL (8.5-10.1); MAGNESIUM 1.5 mg/dL (1.8-2.4); POTASSIUM 4.1 mmol/L (3.5-5.1); TOTAL BILIRUBIN 0.4 mg/dL (<0.1-1.0); TOTAL PROTEIN 6.4 g/dL (6.4-8.2)
[2020-09-02 08:00] VITALS: BP 140/72
--- NOTE | 2020-09-02 14:05 | CON ---
[address] [address] CONSULTATION Name: JINNY BUTLER Room: [address] IN M.R.#: [id number] Admission: 08/27/20 Attend Phys: Merari Martin MD Discharge: Date of : 55 Report #: [id number] THIS REPORT FOR: //name// cc: Taylor Plaza Ahmad W. DO ~ REQUESTING PHYSICIAN: Dr. Martin. REASON FOR CONSULTATION: Hyponatremia. HISTORY OF PRESENT ILLNESS: The patient is a 65-year-old male with medical history significant for recurrent hyponatremia, history of bipolar disorder, coronary artery disease, chronic back pain and debility, who presents after a fall and he sustained right femur fracture. The patient had similar admission 10 days ago for hyponatremia. He was given saline and his sodium improved. He was discharged home and now he is back to the hospital. MEDICATIONS: Reviewed. PAST MEDICAL HISTORY: As I mentioned earlier. SOCIAL HISTORY: No current tobacco or alcohol abuse. REVIEW OF SYSTEMS: Inaccurate due to the patient being uncooperative. PHYSICAL EXAMINATION: GENERAL: He is awake, alert, and uncooperative with questioning. He refused a CT scan without providing any reason for us why he is refusing that. HEENT: Pupils are round. NECK: Supple. Oral mucosa is dry. LUNGS: Clear. CARDIOVASCULAR: Regular rate, tachycardia. He is in sinus tachycardia. ABDOMEN: Soft. LABORATORY DATA: Report revealed serum sodium of 113 initially. It is up to 119, even though he is getting just half normal saline. It shows how severely volume depleted. His serum sodium is improving actually which is giving him hypotonic saline. His creatinine on admission was 1.2 is zero point now. Again confirming that he is volume depleted. Sodium chloride was 79, now 86. ASSESSMENT: Hyponatremia due to volume depletion is improving with half normal saline. PLAN: At this point, we will switch him to [place] [address] CONSULTATION Name: JINNY BUTLER Monty Room: [address] IN [facility]#: [id number] Admission: 08/27/20 Attend Phys: Merari Martin MD Discharge: Date of : 55 Report #: [id number] hydration. No need for fluid restriction. I discussed this case with Dr. Martin. <ELECTRONICALLY SIGNED> By: Samuel Bass MD 09/02/20 1405 1011 1052Amerrick Bass MD /nt
[2020-09-02 20:15] VITALS: BP 150/75
[2020-09-02 23:58] VITALS: BP 110/60
[2020-09-03 04:00] VITALS: BP 100/68
[2020-09-03] MEDS ORDERED: DEPAKOTE ER250 MG PO (04:47)
[2020-09-03] MEDS ORDERED: EFFEXOR XR75 MG PO (04:47)
[2020-09-03] MEDS ORDERED: ENOXAPARIN40 MG/0.1 SUBQ (04:47)
[2020-09-03] MEDS ORDERED: FERREX 150 PLU1 EAC1 PO (04:47)
[2020-09-03] MEDS ORDERED: OXYBUTYNIN 5 MG5 M2 PO (04:47)
[2020-09-03] MEDS ORDERED: ZYPREXA 5 MG TAB5 M1 PO (04:47)
[2020-09-03 06:32] LABS: ALBUMIN 1.8 g/dL (3.4-5.0); CALCIUM 9.6 mg/dL (8.5-10.1); CREATININE 1.3 mg/dL (0.6-1.3); POTASSIUM 4.2 mmol/L (3.5-5.1); TOTAL BILIRUBIN 0.3 mg/dL (<0.1-1.0); TOTAL PROTEIN 6.7 g/dL (6.4-8.2)
[2020-09-03 08:00] VITALS: BP 165/95
[2020-09-03 12:00] VITALS: BP 152/84
[2020-09-04] VITALS: BP 115/66
[2020-09-04 04:00] VITALS: BP 120/62
[2020-09-04 08:00] VITALS: BP 109/60
[2020-09-04 11:58] VITALS: BP 122/64
[2020-09-04 16:11] VITALS: BP 122/68
[2020-09-04 20:00] VITALS: BP 135/71
[2020-09-05] VITALS: BP 113/61
[2020-09-05 04:00] VITALS: BP 126/75
[2020-09-05 04:22] LABS: HEMATOCRIT 23.8 % (42.0-52.0); HEMOGLOBIN 7.8 gm/dL (14.0-18.0); MCH 27.1 pg (26.0-34.0); MCHC 32.8 g/dL (28.0-37.0); MCV 82.8 fL (80.0-100.0); RBC 2.88 mil/uL (4.50-6.00); RDW-CV 16.3 % (10.5-14.5); WBC 5.9 thou/uL (4.0-11.0)
[2020-09-05 04:44] LABS: CALCIUM 9.8 mg/dL (8.5-10.1); POTASSIUM 4.2 mmol/L (3.5-5.1)
[2020-09-05 08:00] VITALS: BP 124/73
[2020-09-05 13:04] VITALS: BP 139/77
[2020-09-05 17:01] VITALS: BP 146/77
[2020-09-05 20:00] VITALS: BP 105/70
[2020-09-06 00:09] VITALS: BP 119/70
[2020-09-06 04:00] VITALS: BP 127/81
[2020-09-06 05:16] LABS: HEMATOCRIT 24.4 % (42.0-52.0); HEMOGLOBIN 8.3 gm/dL (14.0-18.0); MCH 27.6 pg (26.0-34.0); MCHC 33.8 g/dL (28.0-37.0); MCV 81.5 fL (80.0-100.0); MPV 6.1 fl. (7.2-11.1); WBC 6.2 thou/uL (4.0-11.0)
[2020-09-06 06:14] LABS: ALBUMIN 1.8 g/dL (3.4-5.0); CALCIUM 9.9 mg/dL (8.5-10.1); MAGNESIUM 1.7 mg/dL (1.8-2.4); TOTAL BILIRUBIN 0.3 mg/dL (<0.1-1.0); TOTAL PROTEIN 6.5 g/dL (6.4-8.2)
[2020-09-06 08:27] VITALS: BP 114/73
[2020-09-06 12:00] VITALS: BP 122/85
[2020-09-06 16:00] VITALS: BP 127/81
[2020-09-07] VITALS: BP 114/68
[2020-09-07 04:00] VITALS: BP 136/71
[2020-09-07 07:54] VITALS: BP 108/59
[2020-09-07] MEDS ORDERED: FERREX 150 PLU1 EAC1 PO (08:05)
[2020-09-07] MEDS ORDERED: OXYCODONE HCL 55 MG PO (08:05)
[2020-09-07 09:27] LABS: HEMATOCRIT 27.1 % (42.0-52.0); HEMOGLOBIN 9.1 gm/dL (14.0-18.0); MCH 27.6 pg (26.0-34.0); MCHC 33.4 g/dL (28.0-37.0); MCV 82.5 fL (80.0-100.0); MPV 6.3 fl. (7.2-11.1); RBC 3.29 mil/uL (4.50-6.00); RDW-CV 15.9 % (10.5-14.5); WBC 6.6 thou/uL (4.0-11.0)
[2020-09-07 09:45] LABS: ALBUMIN 2.1 g/dL (3.4-5.0); CALCIUM 9.9 mg/dL (8.5-10.1); CREATININE 0.9 mg/dL (0.6-1.3); MAGNESIUM 1.8 mg/dL (1.8-2.4); POTASSIUM 4.2 mmol/L (3.5-5.1); TOTAL BILIRUBIN 0.3 mg/dL (<0.1-1.0); TOTAL PROTEIN 7.5 g/dL (6.4-8.2)
[2020-09-07 12:00] VITALS: BP 135/86
[2020-09-07 16:00] VITALS: BP 142/84
[2020-09-07 20:00] VITALS: BP 115/73
[2020-09-08] VITALS: BP 101/59
[2020-09-08 04:00] VITALS: BP 104/53
[2020-09-08 05:37] LABS: HEMATOCRIT 25.9 % (42.0-52.0); HEMOGLOBIN 8.4 gm/dL (14.0-18.0); MCH 26.7 pg (26.0-34.0); MCHC 32.6 g/dL (28.0-37.0); MCV 81.9 fL (80.0-100.0); MPV 6.2 fl. (7.2-11.1); RBC 3.16 mil/uL (4.50-6.00); RDW-CV 16.4 % (10.5-14.5)
[2020-09-08 06:18] LABS: CALCIUM 9.9 mg/dL (8.5-10.1); MAGNESIUM 1.7 mg/dL (1.8-2.4); POTASSIUM 4.4 mmol/L (3.5-5.1)
[2020-09-08 12:00] VITALS: BP 132/79
[2020-09-08 16:00] VITALS: BP 116/73
[2020-09-08 20:00] VITALS: BP 120/78
[2020-09-09] VITALS: BP 112/66
[2020-09-09 04:40] VITALS: BP 123/60
[2020-09-09 07:35] VITALS: BP 100/58
[2020-09-09 09:50] LABS: POTASSIUM 3.9 mmol/L (3.5-5.1)
[2020-09-09 13:45] VITALS: BP 109/62
[2020-09-09 17:05] VITALS: BP 105/72
[2020-09-09 20:48] VITALS: BP 126/73
[2020-09-10] VITALS (7 sets, daily range): BP systolic 109–159; BP diastolic 68–78
[2020-09-10 04:44] LABS: HEMOGLOBIN 8.2 gm/dL (14.0-18.0); MCH 26.8 pg (26.0-34.0); MCV 81.2 fL (80.0-100.0); MPV 6.1 fl. (7.2-11.1); RBC 3.07 mil/uL (4.50-6.00); RDW-CV 15.9 % (10.5-14.5); WBC 6.9 thou/uL (4.0-11.0)
[2020-09-10 05:24] LABS: ALBUMIN 2.1 g/dL (3.4-5.0); CALCIUM 9.8 mg/dL (8.5-10.1); MAGNESIUM 1.5 mg/dL (1.8-2.4); POTASSIUM 4.3 mmol/L (3.5-5.1); TOTAL BILIRUBIN 0.2 mg/dL (<0.1-1.0); TOTAL PROTEIN 6.7 g/dL (6.4-8.2)
[2020-09-11 04:00] VITALS: BP 134/83
[2020-09-11 08:04] VITALS: BP 118/75
[2020-09-11 13:10] VITALS: BP 109/65
[2020-09-11 16:01] VITALS: BP 116/65
[2020-09-11 20:05] VITALS: BP 125/72
[2020-09-12] VITALS: BP 93/60
[2020-09-12 13:36] VITALS: BP 120/70
[2020-09-12 17:57] VITALS: BP 129/72
[2020-09-12 20:15] VITALS: BP 116/74
[2020-09-13 08:00] VITALS: BP 110/74
[2020-09-13 13:07] LABS: URINE MAGNESIUM-mg/24hr 163.2 mg/24 hr (12.0-293.0); URINE MAGNESIUM-mg/dl 3.4 mg/dL (Not Estab.)
[2020-09-13 14:00] VITALS: BP 108/60
[2020-09-13 20:00] VITALS: BP 127/70
[2020-09-14] VITALS (8 sets, daily range): BP systolic 97–117; BP diastolic 56–63
[2020-09-14] MEDS ORDERED: ASPIRIN325 PO (09:50)
[2020-09-14] MEDS ORDERED: DEPAKOTE ER250 MG PO (11:37)
[2020-09-14] MEDS ORDERED: OXYCODONE HCL 55 MG PO (11:37)
[2020-09-14] MEDS ORDERED: EFFEXOR XR75 MG PO (11:37)
[2020-09-14] MEDS ORDERED: OXYBUTYNIN 5 MG5 M2 PO (11:37)
[2020-09-14] MEDS ORDERED: ZYPREXA 5 MG TAB5 M2 PO (11:37)
--- NOTE | 2020-09-15 06:50 | OP ---
[address] [address] OPERATIVE REPORT Name: JINNY BUTLER Monty Room: [address] IN .R.#: [id number] Admission: 08/27/20 Attend Phys: Merari Martin MD Discharge: 09/14/20 Date of : 55 Report #: [id number] THIS REPORT FOR: //name// cc: Taylor Plaza Ahmad W. DO ~ CC: Taylor Martin DICTATED BY: Robert Elliott DO DATE OF SERVICE: 09/03/2020 PREOPERATIVE DIAGNOSIS: Right hip hemiarthroplasty instability with dislocation. POSTOPERATIVE DIAGNOSIS: Right hip hemiarthroplasty instability with dislocation. PROCEDURE PERFORMED: Conversion of right hip hemiarthroplasty to the mobility total hip arthroplasty with the following components: 1. A size 66 Francisco Biomet G7 acetabular shell. 2. Two 25 mm acetabular screws. 3. A 66 dual mobility liner. 4. A 54 outer poly with a 28 mm ceramic head and a +6 mm neck adapter. The femoral stem was maintained from the prior surgery. SURGEON: Thiago Dick DO GLOVE CLEANER: 1. Robert Elliott DO 2. Boby Fitzpatrick DO 2. Shey Sheriff DO ANESTHESIA: General. ESTIMATED BLOOD LOSS: 200 mL. ANTIBIOTICS: 2 g Ancef IV preoperatively. COMPLICATIONS: None. SPECIMENS: None. CONDITION: The patient is stable to PACU. INDICATIONS FOR PROCEDURE: The patient is a 65-year-old male who unfortunately [address] [address] OPERATIVE REPORT Name: JINNY BUTLER Monty Room: [address] IN .R.#: [id number] Admission: 08/27/20 Attend Phys: Merari Martin MD Discharge: 09/14/20 Date of : 55 Report #: [id number] sustained a right femoral neck fracture last week. He underwent right hip hemiarthroplasty. Unfortunately, in the postoperative period, he did have instability and dislocation of the right hip hemiarthroplasty. Treatment options were discussed in detail with the patient. Ultimately felt to gain more stability to the hip. This would be best treated with a conversion to a total hip arthroplasty utilizing dual mobility components. The risks, benefits, alternatives and complications were discussed in detail with the patient and he wished to proceed with this procedure. DESCRIPTION OF PROCEDURE: The patient was seen and examined in the preoperative holding area. The correct operative extremity was marked. Written consent was obtained. The patient was transferred to the operating room and given the benefit of general anesthesia. It was then placed in the supine position on the [place] table. The legs are well secured in the leg spars. He was well secured with a lap belt as well as the perineal post. Next, the right lower extremity was prepped and draped in the usual sterile fashion. Timeout was performed to verify the correct patient, procedure and operative extremity and all were in agreement. Procedure then began with an incision for a standard direct anterior approach directly through the prior incision. Sharp dissection was carried down through the tensor fascia in line with the previous closure. There was noted to be a large hematoma directly underlying the tensor fascia in the interval between the TFL and sartorius. This hematoma was evacuated. The hip was reduced when visualized. The hip was subsequently dislocated and the femoral head component was removed from the hip stem. The hip stem was palpated as well as TAP down with a mallet was noted to be well seated with excellent stability. The decision was made to retain the femoral stem. Attention was then turned to the acetabulum. The remainder of the acetabular labrum was then excised at that time. The acetabulum was reamed sequentially up to a size 65 reamer. This was done under fluoroscopy. Next, the final size 66 acetabular shell was then impacted into position and secured with two 25 mm acetabular screws. Next, the dual mobility liner was then placed in the standard fashion and impacted into position. Varying head and neck size options were trialed and ultimately the +6 mm neck length was noted to have best stability. Leg lengths were appropriate. We did note that he was short on this right side even prior to his previous femoral neck fracture. The final components were then impacted in position. Hip was reduced. The hip was taken through range of motion and noted to have excellent stability. Final fluoroscopic images were obtained, which demonstrated appropriate position of the implants with no signs of complication. Incision was thoroughly irrigated with normal saline. One gram of vancomycin powder was inserted into the incision. Tensor fascia was then closed with a running Quill suture followed by 2-0 Vicryl subcutaneously and grace on the skin. Sterile dressing was applied. The patient was then awakened from [address] [address] OPERATIVE REPORT Name: JINNY BUTLER Room: [address] IN M.R.#: [id number] Admission: 10/23/20 Attend Phys: Merari Martin MD Discharge: 09/14/20 Date of : 55 Report #: [id number] anesthesia and transferred to the PACU in stable condition. The patient tolerated the procedure well. There were no complications. <ELECTRONICALLY SIGNED> By: Saul Camejo DO 09/15/20 0650 1633 1732Ddarío Dick DO /nt
== END 2020-09-14 16:42 | disposition home health service (06) | DRG 466 ==
LOC: M.ERS 10:09 → M.ICU 12:28 → M.2W 12:28 → M.TBA-ER 12:28 → M.ICU 13:47 → M.2W 08-30 15:26 → M.3W 09-14 10:12
PROVIDERS: Emergency Medicine Emergency Medical Services; Internal Medicine Nephrology; Orthopaedic Surgery; ADMIT Internal Medicine; ATTEND Internal Medicine
DX: S72.011A Unspecified intracapsular fracture of right femur, initial encounter for closed fracture (principal); G93.41 Metabolic encephalopathy; E87.1 Hypo-osmolality and hyponatremia; T84.020A Dislocation of internal right hip prosthesis, initial encounter; S72.141A Displaced intertrochanteric fracture of right femur, initial encounter for closed fracture; F31.9 Bipolar disorder, unspecified; E78.00 Pure hypercholesterolemia, unspecified; K21.9 Gastro-esophageal reflux disease without esophagitis; I25.10 Atherosclerotic heart disease of native coronary artery without angina pectoris; N40.0 Benign prostatic hyperplasia without lower urinary tract symptoms; I73.9 Peripheral vascular disease, unspecified; W18.39XA Other fall on same level, initial encounter; G47.00 Insomnia, unspecified; N18.30 Chronic kidney disease, stage 3 unspecified; G89.29 Other chronic pain; M54.9 Dorsalgia, unspecified; E86.9 Volume depletion, unspecified; F17.200 Nicotine dependence, unspecified, uncomplicated; X58.XXXA Exposure to other specified factors, initial encounter; E78.5 Hyperlipidemia, unspecified; I12.9 Hypertensive chronic kidney disease with stage 1 through stage 4 chronic kidney disease, or unspecified chronic kidney disease; Z20.828 Contact with and (suspected) exposure to other viral communicable diseases; Z79.82 Long term (current) use of aspirin; Z79.01 Long term (current) use of anticoagulants; Z79.899 Other long term (current) drug therapy; Z88.8 Allergy status to other drugs, medicaments and biological substances; Z95.5 Presence of coronary angioplasty implant and graft; Y93.89 Activity, other specified; Y92.89 Other specified places as the place of occurrence of the external cause; Y99.8 Other external cause status

== ENCOUNTER 2021-02-22 17:01 | Emergency (ER) | payer OTHER, MEDICAID ==
[~2021-02-22] VITALS: Ht 182.9 cm; Wt 74.4 kg
[~2021-02-22 17:01] MED LIST changes: +DEPAKOTE ER250 MG PO; +ENOXAPARIN40 MG/0.1 SUBQ; +FERREX 150 PLU1 EAC1 PO; +OXYBUTYNIN 5 MG5 M2 PO; +OXYCODONE HCL 55 MG PO; +ZYPREXA 5 MG TAB5 M2 PO
[2021-02-22] MEDS ORDERED: DEPAKOTE500 MG PO (17:03)
[2021-02-22] MEDS ORDERED: FISH OIL 1,0001 EAC9 PO (17:05)
[2021-02-22] MEDS ORDERED: VENLAFAXINE HCL75 M1 PO (17:05)
[2021-02-22] MEDS ORDERED: VENLAFAXINE HC150 M1 PO (17:05)
[2021-02-22] MEDS ORDERED: OLANZAPINE15 M1 PO (17:06)
[2021-02-22] MEDS ORDERED: TOLTERODINE TART4 MG PO (17:07)
[2021-02-22 17:32] LABS: ABSOLUTE BASOPHILS 0.1 thou/uL (0.0-0.2); ABSOLUTE EOSINOPHILS 0.3 thou/uL (0.0-0.7); ABSOLUTE LYMPHOCYTES 1.7 thou/uL (0.8-5.3); ABSOLUTE MONOCYTES 0.7 thou/uL (0.0-1.2); ABSOLUTE NEUTROPHILS 2.9 thou/uL (1.6-8.1); EOSINOPHILS 5.9 %; HEMATOCRIT 38.8 % (42.0-52.0); HEMOGLOBIN 12.7 gm/dL (14.0-18.0); LYMPHOCYTES 29.8 %; MCH 27.7 pg (26.0-34.0); MCHC 32.8 g/dL (28.0-37.0); MCV 84.3 fL (80.0-100.0); MONOCYTES 11.6 %; MPV 5.9 fl. (7.2-11.1); NUCLEATED RBCS 0 /100WBC; PLATELET COUNT* 442 thou/uL (150-400); POLYS 51.7 %; RDW-CV 18.4 % (10.5-14.5); WBC 5.7 thou/uL (4.0-11.0)
[2021-02-22 17:39] LABS: CALCIUM 10.1 mg/dL (8.5-10.1); CREATININE 1.2 mg/dL (0.6-1.3)
[2021-02-22 17:44] LABS: ALBUMIN 3.9 g/dL (3.4-5.0); TOTAL BILIRUBIN 0.3 mg/dL (<0.1-1.0); TOTAL PROTEIN 8.3 g/dL (6.4-8.2)
[2021-02-22 18:22] VITALS: BP 165/84
== END 2021-02-22 18:23 | disposition home or self-care (01) ==
LOC: M.ERS 17:01
PROVIDERS: Family Medicine
DX: S70.01XA Contusion of right hip, initial encounter (principal); E78.00 Pure hypercholesterolemia, unspecified; K21.9 Gastro-esophageal reflux disease without esophagitis; I25.10 Atherosclerotic heart disease of native coronary artery without angina pectoris; I13.10 Hypertensive heart and chronic kidney disease without heart failure, with stage 1 through stage 4 chronic kidney disease, or unspecified chronic kidney disease; N18.30 Chronic kidney disease, stage 3 unspecified; F17.210 Nicotine dependence, cigarettes, uncomplicated; Z88.6 Allergy status to analgesic agent; Z88.8 Allergy status to other drugs, medicaments and biological substances; V98.8XXA Other specified transport accidents, initial encounter; Y93.55 Activity, bike riding; Y92.89 Other specified places as the place of occurrence of the external cause; Y99.8 Other external cause status

== ENCOUNTER 2021-05-03 16:20 | Inpatient (IN) | payer OTHER, MEDICAID ==
[~2021-05-03] VITALS: Ht 182.9 cm; Wt 72.6 kg
--- NOTE | ~2021-05-03 | EMS ---
[facility] [address] [place] [address] EMS Patient Care Report Name: JINNY BUTLER Room: [address] IN [facility]#: [id number] Admission: 05/03/21 Attend Phys: Chente Camarillo Discharge: Date of : 55 Report #: [id number] THIS REPORT FOR: //name// Report Transmitted: 05/03/2021 17:54 EMS Care Summary [facility] Incident 21-06 @ 05/03/2021 15:44 Incident Location [address] [place] [address] Patient JINNY BUTLER Male, 65 Years 1955 Patient Address [address] [place] [address] Patient History Hypertension (HTN),Cardiac - Stent, Patient Allergies Other drug allergy, Patient Medications Other, Aspirin, Nitroglycerin, Chief Complaint Chest pain Disposition Transported No Lights/[place] Dispatch Reason Chest Pain (Non-Traumatic) Transported To [facility] Narrative Dispatched to a residence for 65y/o male c/o chest pain. Pt. has history of stents. Upon arrival pt. was waiting outside by the road. Pt. stated that he [facility] [address] [place] [address] EMS Patient Care Report Name: JINNY BUTLER Room: [address] IN [facility]#: [id number] Admission: 05/03/21 Attend Phys: Chente Camarillo Discharge: Date of : 55 Report #: [id number] started having chest pain 9/10 described as "sharp" originating around the left clavicle and radiating through the neck and left arm, into the left hand. Pt. stated that he took 325mg aspirin and NTG tabs x4. Pt. stated that he got some relief with each dose but pain returned within a few minutes each time. 12 lead showed sinus tach and BP was elevated. IV was established prior to transport. NTG tab was administered with some relief to 7/10. After a few minutes pt. stated that the pain was returning at 9/10. 25mcg Fentanyl IV was administered and pt. pain decreased to 5/10 and BP decreased. Pt. had no other complaints and denied SOB throughout transport. Pt. was transported to [place] for emergency and poss. cardiac services. Initial Vitals @15:50P: 110,R: 18,BP: 170/100,Pain: 9/10,GCS: 15,Glucose: 124,SpO2: 99,Revised Trauma: 12, @16:00P: 112,R: 18,BP: 170/96,Pain: 8/10,GCS: 15,SpO2: 99,Revised Trauma: 12, @16:10P: 112,R: 16,BP: 136/78,Pain: 5/10,GCS: 15,SpO2: 97,Revised Trauma: 12, Assessments @15:48MENTAL:No Abnormalities,SKIN:No Abnormalities,HEENT:Head/Face: No Abnormalities,Eyes: No Abnormalities,Neck/Airway: No Abnormalities,LUNG SOUNDS:General: No Abnormalities,Left Upper: No Abnormalities,Right Upper: No Abnormalities,Left Lower: No Abnormalities,Right Lower: No Abnormalities,ABDOMEN:General: No Abnormalities,Left Upper: No Abnormalities,Right Upper: No Abnormalities,Left Lower: No Abnormalities,Right Lower: No Abnormalities,PELVIS//GI:No Abnormalities,EXTREMITIES:Left Arm: No Abnormalities,Right Arm: No Abnormalities,Left Leg: No Abnormalities,Right Leg: No Abnormalities,PULSE:NEURO:No Abnormalities, Impression Chest Pain / Discomfort Procedures @15:55Saline Lock 20cc (18 ga) Site: Antecubital-LeftResponse: UnchangedSucceeded@16:00Nitroglycerin - 0.4 Milligrams (mg) - BuccalResponse: Improved@16:08Fentanyl - 25 Micrograms (mcg) - Intravenous (IV)Response: Improved@15:5012-Lead ECGResponse: UnchangedSucceeded Timeline 15:42,Call Received 15:44,Dispatched 15:45,En Route 15:47,Initial Responder On Scene 15:47,On Scene 15:48,At Patient 15:50,BP: 170/100 M,PULSE: 110,RR: 18 R,SPO2: 99 Ox,ETCO2: ,B,PAIN: 9,GCS: 15, [place] [address] EMS Patient Care Report Name: JINNY BUTLER Room: [address] IN [facility]#: [id number] Admission: 05/03/21 Attend Phys: Chente Camarillo Discharge: Date of : 55 Report #: [id number] 15:50,12-Lead ECG,Response: UnchangedSucceeded, 15:55,Saline Lock 20cc 18 ga Site: Antecubital-Left,Response: UnchangedSucceeded, 15:56,Depart Scene 16:00,Nitroglycerin - 0.4 Milligrams (mg) - Buccal,Response: Improved 16:00,BP: 170/96 M,PULSE: 112,RR: 18 R,SPO2: 99 Ox,ETCO2: ,BG: ,PAIN: 8,GCS: 15, 16:08,Fentanyl - 25 Micrograms (mcg) - Intravenous (IV),Response: Improved 16:10,BP: 136/78 M,PULSE: 112,RR: 16 R,SPO2: 97 Ox,ETCO2: ,BG: ,PAIN: 5,GCS: 15, 16:16,At Destination 16:20,Transfer Patient 16:48,Call Closed Disclaimer v1.1 Copyright 2020 [employer] This EMS Care Summary contains data elements from the applicable legal record (which may be displayed differently). It is designed to provide pertinent information for the following purposes: continuity of care, clinical quality, and state data reporting. The complete legal record is available to ED staff and administrators of the receiving hospital in ES's Patient Tracker. All data is provided "as is."
[~2021-05-03 16:20] MED LIST changes: +FISH OIL 1,0001 EAC9 PO; +OLANZAPINE15 M1 PO
[2021-05-03 16:27] VITALS: BP 151/83
[2021-05-03 17:01] LABS: ABSOLUTE EOSINOPHILS 0.3 thou/uL (0.0-0.7); ABSOLUTE LYMPHOCYTES 1.3 thou/uL (0.8-5.3); ABSOLUTE MONOCYTES 0.6 thou/uL (0.0-1.2); ABSOLUTE NEUTROPHILS 3.5 thou/uL (1.6-8.1); BASOPHILS 0.5 %; EOSINOPHILS 4.7 %; HEMATOCRIT 33.9 % (42.0-52.0); LYMPHOCYTES 22.3 %; MCH 29.6 pg (26.0-34.0); MCHC 35.2 g/dL (28.0-37.0); MCV 84.1 fL (80.0-100.0); MONOCYTES 10.4 %; MPV 6.2 fl. (7.2-11.1); NUCLEATED RBCS 0 /100WBC; PLATELET COUNT* 270 thou/uL (150-400); POLYS 62.1 %; RBC 4.04 mil/uL (4.50-6.00); RDW-CV 15.9 % (10.5-14.5); WBC 5.7 thou/uL (4.0-11.0)
[2021-05-03 17:17] LABS: CALCIUM 10.4 mg/dL (8.5-10.1); CREATININE 1.2 mg/dL (0.6-1.3)
[2021-05-03 17:25] LABS: ALBUMIN 3.2 g/dL (3.4-5.0); MAGNESIUM 1.5 mg/dL (1.8-2.4); TOTAL BILIRUBIN 0.3 mg/dL (<0.1-1.0); TOTAL PROTEIN 6.8 g/dL (6.4-8.2)
[2021-05-03 17:48] LABS: CK-MB MASS 6.5 ng/mL (<0.5-3.6)
[2021-05-03 18:38] VITALS: BP 118/78
--- NOTE | 2021-05-03 18:52 | NUR ---
PT UP FROM ED SET UP IN ROOM PUT TELE MONITOR ON AND PT EATING BOX LUNCH
[2021-05-03 20:00] VITALS: BP 158/85
[2021-05-04] VITALS (15 sets, daily range): BP systolic 122–169; BP diastolic 72–95
--- NOTE | 2021-05-04 09:30 | EKG ---
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 [employer]: ZACH : 1955 Requested By: Evans Colbert Order Number: [id number] MD: Thiago Hendrickson Measurements Intervals [place] Rate: 111 P: 76 AL: 173 QRS: 82 QRSD: 131 T: -9 QT: 341 QTc: 464 Interpretive Statements Sinus tachycardia artifact noted Left atrial enlargement Right bundle branch block ST depression, consider ischemia, lateral lds Compared to ECG 08/27/2020 12:11:59 Right bundle-branch block now present Sinus rhythm no longer present Possible ischemia still present Electronically Signed On 05-04-2021 9:30:21 CDT by Thiago Hendrickson [email or web address] <ELECTRONICALLY SIGNED> By: Thiago Hendrickson MD, [facility] 05/04/21 0930 1623 1623 Thiago Hendrickson MD, [facility] /EPI
[2021-05-04 09:47] LABS: HEMATOCRIT 37.5 % (42.0-52.0); MCH 29.4 pg (26.0-34.0); MCHC 34.6 g/dL (28.0-37.0); MPV 6.3 fl. (7.2-11.1); RBC 4.41 mil/uL (4.50-6.00); RDW-CV 16.4 % (10.5-14.5); WBC 4.4 thou/uL (4.0-11.0)
[2021-05-04 10:08] LABS: CALCIUM 9.5 mg/dL (8.5-10.1); CREATININE 1.1 mg/dL (0.6-1.3)
[2021-05-04 10:15] LABS: TROPONIN-I LEVEL 9.32 ng/mL (<0.06)
--- NOTE | 2021-05-04 15:57 | 2DMMODE ---
[place] [address] 2 D/M-MODE ECHOCARDIOGRAM Name: JINNY BUTLER Monty Room: [address] ADM IN [facility]#: [id number] Admission: 05/03/21 Attend Phys: Desmond Laird Discharge: Date of : 55 Date of Service: 05/04/21 1557 Report #: [id number] THIS REPORT FOR: cc: Taylor Plaza,Thiago Faust MD [facility] ~ APPROVED REPORT Study performed: 05/04/2021 14:31:51 EXAM: Comprehensive 2D, Doppler, and color-flow Echocardiogram Patient Location: In-Patient Room #: [facility] Status: routine BSA: 1.94 HR: 101 bpm BP: 140/89 mmHg Rhythm: NSR Other Information Study Quality: Fair Indications Chest Pain 2D Dimensions IVSd: 10.71 (7-11mm) LVOT Diam: 20.35 (18-24mm) LVDd: 44.10 mm PWd: 9.43 (7-11mm) LVDs: 28.39 (25-40mm) Aortic Root: 29.78 mm Volumes Left Atrial Volume (Systole) LA ESV Index: 16.60 mL/m2 Aortic Valve AoV Peak Heraclio.: 1.11 m/s AO Peak Gr.: 4.95 mmHg LVOT Max P.90 mmHg AO Mean Gr.: 2.74 mmHg LVOT Mean P.21 mmHg LVOT Max V: 0.69 m/s AO V2 VTI: 21.34 cm LVOT Mean V: 0.53 m/s FARIBA (VTI): 2.51 cm2 LVOT V1 VTI: 16.46 [place] [address] 2 D/M-MODE ECHOCARDIOGRAM Name: JINNY BUTLER Room: [address] IN M.R.#: [id number] Admission: 05/03/21 Attend Phys: Desmond Laird Discharge: Date of : 55 Date of Service: 05/04/21 1557 Report #: [id number] Pulmonary Valve PV Peak Heraclio.: 0.86 m/s PV Peak Gr.: 2.93 mmHg Left Ventricle The left ventricle is normal size. There is normal LV segmental wall motion. There is normal left ventricular wall thickness. Left ventricular systolic function is normal. The left ventricular ejection fraction is within the normal range. LVEF is 50-55%. This study is not technically sufficient to allow evaluation of the LV diastolic function. Right Ventricle The right ventricle is normal size. The right ventricular systolic function is normal. Atria The left atrium size is normal. The right atrium size is normal. Aortic Valve The aortic valve is normal in structure. No aortic regurgitation is present. There is no aortic valvular stenosis. Mitral Valve There is mitral annular calcification. Trace mitral regurgitation. No evidence of mitral valve stenosis. Tricuspid Valve The tricuspid valve is normal in structure. Trace tricuspid regurgitation. Pulmonic Valve Pulmonic valve is not well visualized. There is no pulmonic valvular regurgitation. Great Vessels The aortic root is normal in size. IVC is normal in size and collapses >50% with inspiration. Pericardium There is no pericardial effusion. <Conclusion> [place] [address] 2 D/M-MODE ECHOCARDIOGRAM Name: JINNY BUTLER Monty Room: [address] IN .R.#: [id number] Admission: 05/03/21 Attend Phys: Desmond Laird Discharge: Date of : 55 Date of Service: 05/04/211556 Report #: [id number] LVEF is 50-55%. There is normal LV segmental wall motion. <ELECTRONICALLY SIGNED> By: Thiago Hendrickson MD, [facility] 05/04/211556 56 56 Thiago Hendrickson MD, FACC /INF
--- NOTE | 2021-05-04 16:24 | NUR ---
PT INDICATED HE LIVES HOME WITH HIS S/O OF 16 YRS. PT STATED S/O ASSIST WITH ADLS AT TIMES. PT HAS NO DMES. PT DENIES HX WITH SNF AND HAS USED HH IN THE PAST. THE PLAN OF CARE IS FOR PT TO HAVE CATH PLACED TODAY. CM UPDATED Missy Centeno AT [facility]. [phone].
--- NOTE | 2021-05-04 16:31 | CARD ---
[address] [address] CARDIAC CATH REPORT Name: JINNY BUTLER Room: [address] IN [facility]#: [id number] Admission: 05/03/21 Attend Phys: Chente Camarillo Discharge: Date of : 55 Report #: [id number] THIS REPORT FOR: cc: [place] Ahmad W. DO Blick, David R. MD [facility] ~ APPROVED REPORT Study performed: 05/04/2021 09:55:11 Patient Details Patient Status: In-Patient Room #: 206 The patient is a 65 year-old male Event Personnel Alejandro Dumont RTR Monitor, Jennifer Mtz RTR ScrubEmeka David Nurse Discharge, Radha Graves RN nuclear licensing engineer Performed Left Heart Cath w/or w/o Coronaries [id number] [facility] Hemostasis with Hemoband Indication Non-STEMI , Chest pain Risk Factors Peripheral Vascular Disease, Coronary Artery Disease, Tobacco History () Previous Procedures/Diagnoses Previous PCI Admission/Lab Medications/Medications given during procedure Heparin Unfract., Midazolam (Versed) IV 2 mg, Lidocaine Subcut 4 ml, Nitroglycerin IA 200 mcg, Verapamil IA 2.5 mg, Heparin IV 3600 units, Fentanyl IV 25 mcg, Midazolam (Versed) IV 1 mg Procedure Narrative The patient was brought electively to the Cardiac Catheterization Laboratory and was prepped and draped in a sterile manner. The left wrist was infiltrated with 2% Lidocaine subcutaneous anesthesia. IV conscious sedation was used throughout procedure with appropriate monitoring and was performed in the presence of a registered nurse who was an independent trained [place] [address] CARDIAC CATH REPORT Name: JINNY BUTLER Monty Room: [address] IN [facility]#: [id number] Admission: 05/03/21 Attend Phys: Chente Camarillo Discharge: Date of : 55 Report #: [id number] performing the procedure. A Slender Glidesheath sheath was inserted into the left radial artery. Coronary angiography was performed using coronary diagnostic catheters. The right coronary system was accessed and visualized with a Diagnostic JR4 6Fr catheter. The left coronary system was accessed and visualized with a Diagnostic JL4 6Fr catheter. Left ventricular/Aortic Valve gradient assessed via catheter pullback. The patient tolerated the procedure well and there were no complications associated with the procedure. There was no hematoma. Intraoperative Conscious Sedation Sedation start time: 1052 Case end Time: 1131 Fentanyl 25 mcg Versed 3 mg Fluoro Time: 5.5 minutes Dose: DAP 63807 cGycm2 515.47 mGy Contrast Type and Amount: Omnipaque 80 ml Coronary Angiography The patient's coronary anatomy is left dominant. Diagnostic Cath Left Main 0% stenosis LAD 50% proximal stenosis, and the apical LAD had a very narrow lumen consistent with diffuse atherosclerosis Circumflex Stent in the mid circumflex had a 30% restenosis. The distal circumflex had a 50% stenosis. L JULIANNA small vessel with 90% distal stenosis Right Coronary small vessel with 90% proximal and 90% mid stenoses. Ramus medium sized vessel with a proximal stent that had a 70% restenosis and a mid 30% stenosis Left Ventriculography Left Ventriculography was not performed. Hemodynamics The aortic pressure is 168/86 mmHg with a mean of 120 mmHg. The left ventricular pressure is 164/10 mmHg with a mean of mmHg. The left ventricular end diastolic pressure is 15 mmHg. There was no gradient across the aortic valve upon pullback. Pullback from the left ventricle to the aorta revealed no gradient [place] [address] CARDIAC CATH REPORT Name: JINNY BUTLER Room: [address] IN [facility]#: [id number] Admission: 05/03/21 Attend Phys: Chente Camarillo Discharge: Date of : 55 Report #: [id number] Conclusion 1. diffuse CAD with a stent in the circumflex artery that had a 30% restenosis. 2. stent in the ramus artery had a 70% restenosis. 3. 90% stenosis noted in the distal small posterior descending artery of the circumflex artery. Recommendations Cardiac Rehabilitation Referral Aggressive Medical Therapy <ELECTRONICALLY SIGNED> By: Thiago Hendrickson MD, FACC 05/04/211629 29 29Daamie Hendrickson MD, [facility] /INF
--- NOTE | 2021-05-04 17:00 | NUR ---
RECEIVED REPORT. ASSUMED CARE OF PT AROUND 0730. AM ASSESSMENT AND VITALS COMPLETED CHARTED. MEDS PER EMAR. CARDIOLOGY CONSULT APPRECIATED - PT SENT DOWN TO CLOTH FINISHER AND RETURNED. LEFT RADIAL CATH SITE. NO INTERVENTION. POST CATH VITALS CHARTED. VASC BAND REMOVED. PT ELECTING TO LEAVE AMA - CARDIOLOGY AND HOSPITALIST AWARE. IV AND CLIENT SUPPORT MANAGER REMOVED. ALL BELONINGS GATHERED AND LEAVING WITH PT. CAB VOUCHER GIVEN. PT LEFT UNIT IN WC WITH NURSING STAFF. PT LEFT HOSPITAL IN CAB.
--- NOTE | 2021-05-05 09:56 | CON ---
[address] [address] CONSULTATION Name: JINNY BUTLER Monty Room: [address] IN [facility]#: [id number] Admission: 05/03/21 Attend Phys: Chente Camarillo Discharge: 05/04/21 Date of : 55 Report #: [id number] THIS REPORT FOR: cc: [place] Ahmad W. DO Blick, David R. MD [facility] ~ DOC #: [id number] cc: DO Thiago Willis MD [facility] DATE OF CONSULTATION: 05/04/2021 CARDIOLOGY CONSULTATION HISTORY OF PRESENT ILLNESS: The patient is a 65-year-old single white male who I was asked to see in the hospital today after he complained of chest pain. The patient has a long and extensive past medical history. He claims that he has had a total of 6 coronary stents placed in the past. His last stent was a couple years ago here at [facility]. He was admitted last night after he complained of some chest pain that went to his arm and jaw. He felt an ache. He took some nitroglycerin that seemed to help. He called an ambulance and was brought here to [facility]. The pain lasted a couple hours and then resolved. The pain was not related to food. He has had no recent cough. He denies any trauma to his chest. He has had no recent bleeding. He denies any recent exertional dyspnea, fever, bleeding, rash. PAST MEDICAL HISTORY: He has had shoulder surgery, knee surgery, hip replacement, hypertension, hyperlipidemia. He has a history of manic depressive illness. MEDICATIONS ON ADMISSION: Consisted that of Depakote, Zyprexa, Effexor, Plavix, omeprazole, Imdur, Neurontin, fish oil. ALLERGIES: HE HAS A PREVIOUS INTOLERANCE TO TRAMADOL. FAMILY HISTORY: His father had heart problems. SOCIAL HISTORY: He currently lives with girlfriend in [place], [place]. 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 He smokes 2 packs of cigarettes a day. He does smoke grass occasionally. No other illicit drugs, no alcohol abuse. REVIEW OF SYSTEMS: He has had no history of stroke. He does have COPD. No history of liver disease. He does have chronic kidney disease, no cancer. He has chronic back pain. He has manic depressive illness 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 He denies any leg pain. No chronic skin condition. PHYSICAL EXAMINATION: GENERAL: Revealed a middle-aged male, lying in bed. He appeared in no acute distress. VITAL SIGNS: He had a blood pressure of 130/70, pulse is 80. He is afebrile. HEENT: He was anicteric. Conjunctivae pink. Mucosa moist. NECK: Veins nondistended. No carotid bruits. NECK: Supple. CHEST: Revealed coarse breath sounds bilaterally. HEART: Regular rate and rhythm. No murmur. ABDOMEN: Soft. EXTREMITIES: He had bilateral femoral bruits. Dorsalis pedis pulses cannot be palpated. SKIN: Cool and dry. NEUROLOGIC: Nonfocal. LABORATORY DATA: His ECG on admission showed sinus tachycardia, nonspecific ST and T-wave changes were noted. Incomplete right bundle branch block. His workup in the emergency room, he had portable chest x-ray that showed no acute abnormalities. His lab work last night in the emergency room, sodium was 123, potassium 4, creatinine 1.2. His liver function studies were normal. His troponin initially was 0.21, is now 1.4. His white blood cell count is 5.7, hemoglobin 12.0. IMPRESSION AND RECOMMENDATIONS: 1. Non-ST elevation myocardial infarction. Recommend cardiac catheterization. 2. Previous stent. 3. Manic depressive illness. The patient is followed by Psychiatry. 4. Tobacco abuse. 5. Hyperlipidemia. 6. Atrial fibrillation. The patient takes fish oil. Thiago Hendrickson MD [facility] COOPER/JAVED <ELECTRONICALLY SIGNED> By: Thiago Hendrickson MD, [facility] 05/05/21 [id number] Hendrickson MD, [facility] /nt
== END 2021-05-04 17:00 | disposition left against medical advice (07) | DRG 281 ==
LOC: M.ERS 16:20 → M.TBA-ER 17:27 → M.2W 17:27
PROVIDERS: Family Medicine; Internal Medicine; ADMIT Internal Medicine; ATTEND Internal Medicine
PROC: 4A023N7 Measurement of Cardiac Sampling and Pressure, Left Heart, Percutaneous Approach (ICD-10-PCS; principal; 2021-05-04)
PROC: B2111ZZ Fluoroscopy of Multiple Coronary Arteries using Low Osmolar Contrast (ICD-10-PCS; principal; 2021-05-04)
DX: I21.4 Non-ST elevation (NSTEMI) myocardial infarction (principal); E87.1 Hypo-osmolality and hyponatremia; F31.9 Bipolar disorder, unspecified; E78.00 Pure hypercholesterolemia, unspecified; K21.9 Gastro-esophageal reflux disease without esophagitis; I25.10 Atherosclerotic heart disease of native coronary artery without angina pectoris; N40.0 Benign prostatic hyperplasia without lower urinary tract symptoms; I12.9 Hypertensive chronic kidney disease with stage 1 through stage 4 chronic kidney disease, or unspecified chronic kidney disease; E78.5 Hyperlipidemia, unspecified; F17.210 Nicotine dependence, cigarettes, uncomplicated; N18.30 Chronic kidney disease, stage 3 unspecified; G47.00 Insomnia, unspecified; I73.9 Peripheral vascular disease, unspecified; Z53.21 Procedure and treatment not carried out due to patient leaving prior to being seen by health care provider; Z20.822 Contact with and (suspected) exposure to COVID-19; Z98.49 Cataract extraction status, unspecified eye; Z79.899 Other long term (current) drug therapy; Z79.01 Long term (current) use of anticoagulants; Z88.8 Allergy status to other drugs, medicaments and biological substances; Z95.5 Presence of coronary angioplasty implant and graft